=== PATIENT | male | born 1960 | race Caucasian/White ===

== ENCOUNTER 2017-12-28 13:29 | Emergency (ER) | payer BC ==
[2017-12-28 13:50] VITALS: TEMP 97.9
[2017-12-28] MEDS ORDERED: DILTIAZEM 5 MG/ML 5 ML VIAL IV STA (14:10)
[2017-12-28] MEDS ORDERED: SODIUM CHLORIDE 0.9% 500 ML IV STA (14:10)
--- NOTE | 2017-12-28 14:12 | ED ---
General Adult HPI - General Chief complaint: Recheck/Abnormal Lab/Rx Stated complaint: abn EKG Time Seen by Provider: 12/28/17 13:50 Source: patient, RN notes reviewed Mode of arrival: ambulatory Limitations: no limitations - History of Present Illness Initial comments: This is a 57-year-old male presents emergency Department complaining of palpitations. Patient states she has a history of atrial fibrillation. Patient states he felt fine he worked all night at about 8:00 this morning had a sudden onset of palpitations. Patient states that continues currently. Patient denies any chest pain. Patient denies any shortness of breath or difficulty breathing. Patient denies any fever chills or cough. Patient denies abdominal pain patient denies nausea vomiting diarrhea. Patient denies lightheadedness dizziness or near syncopal episode. Patient denies headache patient denies numbness weakness. - Related Data Home Medications Medication Instructions Recorded Confirmed Chlorthalidone 50 mg PO DAILY 12/28/17 12/28/17 Citalopram Hydrobromide [CeleXA] 10 mg PO DAILY 12/28/17 12/28/17 Diazepam [Valium] 5 mg PO HS 12/28/17 12/28/17 Diltiazem HCl [Diltiazem ER] 240 mg PO DAILY 12/28/17 12/28/17 Ergocalciferol [Vitamin D2] 50,000 unit PO Q7D 12/28/17 12/28/17 HYDROcodone/APAP 10-325MG [[place] 1 tab PO BID PRN 12/28/17 12/28/17 10-325] Modafinil [Provigil] 100 mg PO DAILY 12/28/17 12/28/17 Potassium Chloride ER [K-Dur 20] 20 meq PO DAILY 12/28/17 12/28/17 Spironolactone [Aldactone] 25 mg PO DAILY 12/28/17 12/28/17 Valsartan [Diovan] 320 mg PO DAILY 12/28/17 12/28/17 Previous Rx's Medication Instructions Recorded Nitroglycerin Sl Tabs [Nitrostat] 0.4 mg SUBLINGUAL Q5M PRN #0 tab 09/12/15 Allergies Allergy/AdvReac Type Severity Reaction Status Date / Time No Known Allergies Allergy Verified 12/28/17 14:31 Review of Systems ROS Statement: Those systems with pertinent positive or pertinent negative responses have been documented in the HPI. ROS Other: All systems not noted in ROS Statement are negative. Past Medical History Past Medical History: Atrial Fibrillation, Hypertension Additional Past Medical History / Comment(s): kidney stents History of Any Multi-Drug Resistant Organisms: None Reported Past Surgical History: Heart Catheterization, Heart Catheterization With Stent Additional Past Surgical History / Comment(s): Aortic repair Past Anesthesia/Blood Transfusion Reactions: No Reported Reaction Additional Past Anesthesia/Blood Transfusion Reaction / Comment(s): Pt is unsure if he has ever received blood. Past Psychological History: No Psychological Hx Reported Smoking Status: Former smoker Past Alcohol Use History: None Reported Past Drug Use History: None Reported - Past Family History Father Family Medical History: Cancer Additional Family Medical History / Comment(s): Father had pancreatic cancer and at age 45yrs. Mother Family Medical History: Chest Pain / Angina, Diabetes Mellitus Additional Family Medical History / Comment(s): Mother is alive and 78 yrs old. General Exam - General Exam Comments Initial Comments: GENERAL: Patient is well-developed and well-nourished. Patient is nontoxic and well- hydrated and is in mild distress. ENT: Neck is soft and supple. No significant lymphadenopathy is noted. Oropharynx is clear. Moist mucous membranes. Neck has full range of motion without eliciting any pain. EYES: The sclera were anicteric and conjunctiva were pink and moist. Extraocular movements were intact and pupils were equal round and reactive to light. Eyelids were unremarkable. PULMONARY: Unlabored respirations. Good breath sounds bilaterally. No audible rales rhonchi or wheezing was noted. CARDIOVASCULAR: Patient's heart rate is tachycardic and irregular. ABDOMEN: Soft and nontender with normal bowel sounds. No palpable organomegaly was noted. There is no palpable pulsatile mass. SKIN: Skin is clear with no lesions or rashes and otherwise unremarkable. NEUROLOGIC: Patient is alert and oriented x3. Cranial nerves II through XII are grossly intact. Motor and sensory are also intact. Normal speech, volume and content. Symmetrical smile. MUSCULOSKELETAL: Normal extremities with adequate strength and full range of motion. No lower extremity swelling or edema. No calf tenderness. LYMPHATICS: No significant lymphadenopathy is noted PSYCHIATRIC: Normal psychiatric evaluation. Normal interpersonal interactions appears functionally intact in deals appropriately with others. No signs of depression. No signs of anxiety. Limitations: no limitations Course Vital Signs 05/07/18 05/07/18 05/07/18 13:47 14:21 14:40 Temperature 97.9 F Pulse Rate 60 117 H 110 H Respiratory 18 16 16 Rate Blood Pressure 212/111 199/117 197/110 O2 Sat by Pulse 94 L 94 L 98 Oximetry 12/28/17 12/28/17 14:48 15:15 Temperature Pulse Rate 106 H 103 H Respiratory 16 16 Rate Blood Pressure 193/100 165/84 O2 Sat by Pulse 96 95 Oximetry Medical Decision Making - Medical Decision Making EKG shows atrial fibrillation with rapid ventricular response at 135 bpm QRS is under 4 QT interval 336 QTC is 504. Patient has multiple PVCs. Patient's chest x-ray showed widened mediastinum and the recommendation was to get a CTA of his aorta I recommended and ordered that. the patient absolutely refused to have the study. I also mentioned to the patient that he should stay because his heart rate was elevated in A. fib and his troponin was elevated he stated he did not want to stay I told him that this could possibly kill him but he wanted to sign out. I talked to him for about 10 minutes and again he refused to stay and signed out AMA with full understanding of the potential consequences including - Lab Data Result diagrams: 12/28/17 14:14 12/28/17 14:14 Lab Results 12/28/17 12/28/17 12/28/17 Range/Units 14:14 14:14 14:14 WBC 8.2 (3.8-10.6) k/uL RBC 5.63 (4.30-5.90) m/uL Hgb 15.1 (13.0-17.5) gm/dL Hct 46.5 (39.0-53.0) % MCV 82.6 (80.0-100.0) fL MCH 26.8 (25.0-35.0) pg MCHC 32.4 (31.0-37.0) g/dL RDW 13.4 (11.5-15.5) % Plt Count 285 (150-450) k/uL Neutrophils % 75 % Lymphocytes % 14 % Monocytes % 6 % Eosinophils % 2 % Basophils % 0 % Neutrophils # 6.1 (1.3-7.7) k/uL Lymphocytes # 1.2 (1.0-4.8) k/uL Monocytes # 0.5 (0-1.0) k/uL Eosinophils # 0.2 (0-0.7) k/uL Basophils # 0.0 (0-0.2) k/uL PT (9.0-12.0) sec INR (<1.2) APTT (22.0-30.0) sec Sodium 143 (137-145) mmol/L Potassium 3.9 (3.5-5.1) mmol/L Chloride 99 (98-107) mmol/L Carbon Dioxide 28 (22-30) mmol/L Anion Gap 16 mmol/L BUN 24 H (9-20) mg/dL Creatinine 1.30 H (0.66-1.25) mg/dL Est GFR (CKD-EPI)AfAm 70 (>60 ml/min/1.73 sqM) Est GFR (CKD-EPI)NonAf 61 (>60 ml/min/1.73 sqM) Glucose 106 H (74-99) mg/dL Calcium 9.2 (8.4-10.2) mg/dL Magnesium 2.1 (1.6-2.3) mg/dL Total Bilirubin 0.7 (0.2-1.3) mg/dL AST 45 (17-59) U/L ALT 51 (21-72) U/L Alkaline Phosphatase 71 (38-126) U/L Total Creatine Kinase 214 H (55-170) U/L CK-MB (CK-2) 3.2 H* (0.0-2.4) ng/mL CK-MB (CK-2) Rel Index 1.5 Troponin I 0.097 H* (0.000-0.034) ng/mL Total Protein 6.8 (6.3-8.2) g/dL Albumin 3.9 (3.5-5.0) g/dL 12/28/17 Range/Units 14:14 WBC (3.8-10.6) k/uL RBC (4.30-5.90) m/uL Hgb (13.0-17.5) gm/dL Hct (39.0-53.0) % MCV (80.0-100.0) fL MCH (25.0-35.0) pg MCHC (31.0-37.0) g/dL RDW (11.5-15.5) % Plt Count (150-450) k/uL Neutrophils % % Lymphocytes % % Monocytes % % Eosinophils % % Basophils % % Neutrophils # (1.3-7.7) k/uL Lymphocytes # (1.0-4.8) k/uL Monocytes # (0-1.0) k/uL Eosinophils # (0-0.7) k/uL Basophils # (0-0.2) k/uL PT 10.1 (9.0-12.0) sec INR 1.0 (<1.2) APTT 26.4 (22.0-30.0) sec Sodium (137-145) mmol/L Potassium (3.5-5.1) mmol/L Chloride (98-107) mmol/L Carbon Dioxide (22-30) mmol/L Anion Gap mmol/L BUN (9-20) mg/dL Creatinine (0.66-1.25) mg/dL Est GFR (CKD-EPI)AfAm (>60 ml/min/1.73 sqM) Est GFR (CKD-EPI)NonAf (>60 ml/min/1.73 sqM) Glucose (74-99) mg/dL Calcium (8.4-10.2) mg/dL Magnesium (1.6-2.3) mg/dL Total Bilirubin (0.2-1.3) mg/dL AST (17-59) U/L ALT (21-72) U/L Alkaline Phosphatase (38-126) U/L Total Creatine Kinase (55-170) U/L CK-MB (CK-2) (0.0-2.4) ng/mL CK-MB (CK-2) Rel Index Troponin I (0.000-0.034) ng/mL Total Protein (6.3-8.2) g/dL Albumin (3.5-5.0) g/dL Disposition Clinical Impression: Atrial fibrillation with rapid ventricular response, Elevated troponin, Mediastinal widening, History of aortic dissection Disposition: Left Against Medical Advice Referrals: Prema Cui MD [Primary Care Provider] - 1-2 days Time of Disposition: 15:27
[2017-12-28 14:22] VITALS: RESP 16
[2017-12-28] MEDS ORDERED: DILTIAZEM 50 MG in SODIUM CHLORIDE 0.9% 40 ML IV ONE (14:30)
[2017-12-28 14:36] LABS: Basophils % (A) 0 %; Eosinophils # (A) 0.2 k/uL (0-0.7); Eosinophils % (A) 2 %; HCT 46.5 % (39.0-53.0); HGB 15.1 gm/dL (13.0-17.5); Lymphocytes # (A) 1.2 k/uL (1.0-4.8); Lymphocytes % (A) 14 %; MCH 26.8 pg (25.0-35.0); MCHC 32.4 g/dL (31.0-37.0); MCV 82.6 fL (80.0-100.0); Mean Platelet Volume 8.5; Monocytes # (A) 0.5 k/uL (0-1.0); Monocytes % (A) 6 %; Neutrophils # (A) 6.1 k/uL (1.3-7.7); Neutrophils % (A) 75 %; Platelet Count 285 k/uL (150-450); RBC 5.63 m/uL (4.30-5.90); RDW 13.4 % (11.5-15.5); WBC 8.2 k/uL (3.8-10.6)
[2017-12-28 14:46] LABS: Albumin 3.9 g/dL (3.5-5.0); Calcium 9.2 mg/dL (8.4-10.2); Magnesium 2.1 mg/dL (1.6-2.3); Potassium 3.9 mmol/L (3.5-5.1); Total Bilirubin 0.7 mg/dL (0.2-1.3); Total Protein 6.8 g/dL (6.3-8.2)
[2017-12-28 14:49] LABS: Partial Thromboplastin Time 26.4 sec (22.0-30.0); Prothrombin Time 10.1 sec (9.0-12.0)
--- NOTE | 2017-12-28 15:04 | XR ---
EXAMINATION TYPE: XR chest 2V DATE OF EXAM: 12/28/2017 COMPARISON: 02/14/2011 HISTORY: Chest pain, abnormal EKG, shortness of breath and history of aortic dissection TECHNIQUE: Frontal and lateral views of the chest are obtained. FINDINGS: There is abnormal mediastinal widening, slightly exaggerated by patient rotation, however given the history of dissection CTA thorax is recommended. Right hemidiaphragm elevation and right basilar linear atelectasis are seen. Heart is mildly enlarged . Lungs are otherwise clear. Granulomatous changes are seen of the mediastinum. Osseous structures ar e grossly intact. Numerous mediastinal clips are seen with stent graft of the visualized abdominal ao rta. IMPRESSION: 1. Mediastinal widening, partially due to patient rotation, however given the history of dissection C TA thorax is recommended. 2. Right basilar subsegmental atelectasis.
[2017-12-28 15:14] LABS: Creatine Kinase MB 3.2 ng/mL (0.0-2.4); Troponin I 0.097 ng/mL (0.000-0.034)
[2017-12-28] MEDS ORDERED: RX INFO: IV CONTRAST WAS GIVEN 1 EACH MISC MISCELLANE PRN (15:22)
[2017-12-28 15:51] VITALS: BP 208/123; PULSE 115
== END 2017-12-28 15:32 | disposition left against medical advice (07) ==
LOC: EC 13:29
DX: I48.91 Unspecified atrial fibrillation (principal); J98.59 Other diseases of mediastinum, not elsewhere classified; R79.89 Other specified abnormal findings of blood chemistry; Z86.79 Personal history of other diseases of the circulatory system; I10 Essential (primary) hypertension; Z95.5 Presence of coronary angioplasty implant and graft; Z87.891 Personal history of nicotine dependence; Z98.890 Other specified postprocedural states; Z53.29 Procedure and treatment not carried out because of patient's decision for other reasons
CPT/HCPCS: 36415; 71046; 80053; 82550; 82553; 83735; 84484; 85025; 85610; 85730; 93005; 96365; 96376; 99285

== ENCOUNTER 2018-02-22 01:40 | Emergency (ER) | payer BC ==
[2018-02-22] MEDS ORDERED: RX INFO: IV CONTRAST WAS GIVEN 1 EACH MISC MISCELLANE PRN (02:03)
[2018-02-22] MEDS ORDERED: SODIUM CHLORIDE 0.9% 1,000 ML IV STA (02:03)
[2018-02-22] MEDS ORDERED: MORPHINE SULFATE 2 MG/ML SYRINGE IV STA (02:03)
[2018-02-22] MEDS ORDERED: ONDANSETRON 4 MG/2 ML VIAL IVP STA (02:03)
[2018-02-22] MEDS ORDERED: LABETALOL 5 MG/ML VIAL MDV IVP STA ×3 (02:05→06:08)
[2018-02-22] MEDS ORDERED: NITROGLYCERIN OINT 1 INCH/GM PACKET TOPICAL STA (02:08)
[2018-02-22 02:22] LABS: Basophils % (A) 0 %; Eosinophils # (A) 0.2 k/uL (0-0.7); Eosinophils % (A) 3 %; HCT 47.7 % (39.0-53.0); HGB 15.4 gm/dL (13.0-17.5); Lymphocytes % (A) 13 %; MCH 26.3 pg (25.0-35.0); MCHC 32.2 g/dL (31.0-37.0); MCV 81.7 fL (80.0-100.0); Mean Platelet Volume 7.7; Monocytes # (A) 0.6 k/uL (0-1.0); Monocytes % (A) 8 %; Neutrophils # (A) 5.7 k/uL (1.3-7.7); Neutrophils % (A) 75 %; Platelet Count 291 k/uL (150-450); RBC 5.84 m/uL (4.30-5.90); RDW 14.2 % (11.5-15.5); WBC 7.5 k/uL (3.8-10.6)
[2018-02-22 02:35] LABS: INR 1.1 (<1.2); Partial Thromboplastin Time 28.3 sec (22.0-30.0); Prothrombin Time 10.7 sec (9.0-12.0)
[2018-02-22 02:41] LABS: D-Dimer 1.94 mg/L FEU (<0.60)
[2018-02-22 02:48] LABS: Albumin 4.1 g/dL (3.5-5.0); Calcium 9.4 mg/dL (8.4-10.2); Magnesium 1.8 mg/dL (1.6-2.3); Potassium 4.3 mmol/L (3.5-5.1); Total Bilirubin 0.9 mg/dL (0.2-1.3); Total Protein 7.1 g/dL (6.3-8.2)
[2018-02-22 03:05] LABS: Creatine Kinase 76 U/L (55-170)
--- NOTE | 2018-02-22 03:13 | XR ---
EXAMINATION TYPE: XR chest 2V DATE OF EXAM: 02/22/2018 COMPARISON: 12/28/2017 HISTORY: Chest pain TECHNIQUE: Frontal and lateral views of the chest are obtained. FINDINGS: There is opacification of right lower hemithorax consistent with consolidation and moderat e-sized pleural effusion. There is some blunting of left costophrenic angle. There is no gross heart failure. Thoracic aorta is atheromatous. There is old left upper posterior healed rib fracture. IMPRESSION: There is consolidation and pleural fluid on the right side that is increased compared to old exam. Stable changes in the left lower lobe with pleural and pulmonary scarring.
[2018-02-22 03:18] LABS: Creatine Kinase MB 1.8 ng/mL (0.0-2.4); Troponin I <0.012 ng/mL (0.000-0.034)
[2018-02-22] MEDS ORDERED: cefTRIAXone 2,000 MG in SODIUM CHLORIDE 0.9% 100 ML IVPB STA (03:19)
[2018-02-22] MEDS ORDERED: cefTRIAXone IN SWFI 2,000 MG/20 ML SYRINGE IVP ONE (03:30)
[2018-02-22 05:10] VITALS: TEMP 98.2
--- NOTE | 2018-02-22 05:10 | CT ---
EXAM: CT Angiography Chest With Intravenous Contrast CLINICAL HISTORY: chest pain TECHNIQUE: Axial computed tomographic angiography images of the chest with intravenous contrast using pulmonary embolism protocol. CTDI is 18.0 mGy and DLP is 628 mGy-cm. This CT exam was performed using one or more of the following dose reduction techniques: automated exposure control, adjustment of the mA and/or kV according to patient size, and/or use of iterative reconstruction technique. MIP reconstructed images were created and reviewed. Coronal and sagittal reformatted images were created and reviewed. COMPARISON: No relevant prior studies available. Findings: Ascending aortic dissection. The flap appears to arise from the anterior left side of the aorta extends into the aortic arch on the right side with dissection extending into the brachiocephalic artery and appears to extend into the proximal subclavian artery but does not effect the origin of the right vertebral artery. There is some calcification associated with portion of the intimal flap suggesting portion of this may be chronic. There is dense is identified within the descending aortic dissection. No evidence for extravasation Near complete opacification right lung with large pleural effusion and associated atelectasis. There is pleural thickening noted in the right lung with pleural-based densities measuring up to 2 cm in size.. Mediastinal adenopathy with anterior paratracheal lymph nodes measuring up to 3 cm in size Mediastinal adenopathy is evident Impression: Ascending aortic dissection with intimal flap extending into the brachiocephalic artery and the proximal subclavian artery sparing the right common carotid artery and vertebral artery origins. There is some calcium associated with portions of the flap suggesting portion of these may be chronic. Prior studies are not available comparison. Complete opacification the right hemithorax with large pleural effusion and atelectasis. Extensive enlarged mediastinal adenopathy right greater than left Critical Value Communications 02/22/18 05:00 Call Doctor Regarding Aortic Dissection, called Dr. Melissa on 02/22 05:00 (-04:00)
--- NOTE | 2018-02-22 05:24 | ED ---
Chest Pain HPI - General Chief Complaint: Chest Pain Stated Complaint: Chest pain Time Seen by Provider: 02/22/18 01:51 Source: patient Mode of arrival: wheelchair Limitations: no limitations - History of Present Illness Initial Comments: 57 years old gentleman comes in with a chest pain is radiating towards his back pain is short-winded he said shortness of breath has gotten worse over the last 3 hours it started 11 PM tonight he is diaphoretic is nauseous he hasn't thrown up yet deep breaths makes the pain worse he denies any abdominal pain no frequency urgency dysuria no symptoms of TIA or CVA - Related Data Home Medications Medication Instructions Recorded Confirmed Chlorthalidone 50 mg PO DAILY 12/28/17 12/28/17 Citalopram Hydrobromide [CeleXA] 10 mg PO DAILY 12/28/17 12/28/17 Diazepam [Valium] 5 mg PO HS 12/28/17 12/28/17 Diltiazem HCl [Diltiazem ER] 240 mg PO DAILY 12/28/17 12/28/17 Ergocalciferol [Vitamin D2] 50,000 unit PO Q7D 12/28/17 12/28/17 HYDROcodone/APAP 10-325MG [[place] 1 tab PO BID PRN 12/28/17 12/28/17 10-325] Modafinil [Provigil] 100 mg PO DAILY 12/28/17 12/28/17 Potassium Chloride ER [K-Dur 20] 20 meq PO DAILY 12/28/17 12/28/17 Spironolactone [Aldactone] 25 mg PO DAILY 12/28/17 12/28/17 Valsartan [Diovan] 320 mg PO DAILY 12/28/17 12/28/17 Previous Rx's Medication Instructions Recorded Nitroglycerin Sl Tabs [Nitrostat] 0.4 mg SUBLINGUAL Q5M PRN #0 tab 09/12/15 Allergies Allergy/AdvReac Type Severity Reaction Status Date / Time No Known Allergies Allergy Verified 02/22/18 01:46 Review of Systems ROS Statement: Those systems with pertinent positive or pertinent negative responses have been documented in the HPI. ROS Other: All systems not noted in ROS Statement are negative. EKG Findings - EKG Comments: EKG Findings:: EKG is a defibrillation with the bed and with the rapid ventricular response of this EKG reveals no ST elevation noticed ST depression in lead [address] depression in V6 as well Past Medical History Past Medical History: Atrial Fibrillation, Hypertension Additional Past Medical History / Comment(s): kidney stents History of Any Multi-Drug Resistant Organisms: None Reported Past Surgical History: Heart Catheterization, Heart Catheterization With Stent Additional Past Surgical History / Comment(s): Aortic repair Past Anesthesia/Blood Transfusion Reactions: No Reported Reaction Additional Past Anesthesia/Blood Transfusion Reaction / Comment(s): Pt is unsure if he has ever received blood. Past Psychological History: No Psychological Hx Reported Smoking Status: Former smoker Past Alcohol Use History: None Reported Past Drug Use History: None Reported - Past Family History Father Family Medical History: Cancer Additional Family Medical History / Comment(s): Father had pancreatic cancer and at age 45yrs. Mother Family Medical History: Chest Pain / Angina, Diabetes Mellitus Additional Family Medical History / Comment(s): Mother is alive and 78 yrs old. General Exam - General Exam Comments Initial Comments: General: The patient is awake and alert, severe distress his pain is 10 over 10 he is diaphoretic Skin: Skin is warm and dry and no rashes or lesions are noted. Eye: Pupils are equal, round and reactive to light, extra-ocular movements are intact; there is normal conjunctiva bilaterally. Ears, nose, mouth and throat: There are moist mucous membranes and no oral lesions. Neck: The neck is supple, there is no tenderness him a no signs of meningitis Cardiovascular: There is atrial fibrillation with RVR Respiratory: To auscultation bilateral markedly diminished air exchange bilateral Gastrointestinal: Soft, non-distended, non-tender abdomen without masses or organomegaly noted. There is no rebound or guarding present. Bowel sounds are unremarkable. Back: There is no tenderness to palpation in the midline. There is no obvious deformity. Musculoskeletal: Normal ROM, no tenderness, There is no pedal edema. There is no calf tenderness or swelling. No cords were appreciated. Neurological: CN II-XII intact, Cranial nerves III through XII are intact. There are no obvious motor or sensory deficits. Coordination appears grossly intact. Speech is normal. Psychiatric: Cooperative, appropriate mood & affect, normal judgment. Limitations: no limitations Course Vital Signs 02/22/18 02/22/18 02/22/18 01:43 02:06 02:15 Temperature 98.2 F Pulse Rate 60 120 H 114 H Respiratory 26 H 28 H 26 H Rate Blood Pressure 218/124 189/96 185/105 O2 Sat by Pulse 91 L 92 L 93 L Oximetry 02/22/18 02/22/18 02/22/18 02:21 02:35 03:40 Temperature 97.9 F Pulse Rate 113 H 92 87 Respiratory 30 H 26 H 20 Rate Blood Pressure 159/89 156/92 162/96 O2 Sat by Pulse 90 L 90 L 95 Oximetry 02/22/18 02/22/18 04:30 05:08 Temperature 98.2 F Pulse Rate 90 87 Respiratory 22 26 H Rate Blood Pressure 153/87 171/113 O2 Sat by Pulse 92 L 92 L Oximetry Critical Care Time Total Critical Care Time: 60 Critical Care Time: On arrival his blood pressure was 218 and a he was quite diaphoretic with a history of aneurysms and now pain going towards the back we start him on now labetalol 20 mg IV that helped him we also gave him some morphine as well as nitro paste and that normalized his blood pressure to almost 150 systolic then noticed that his d-dimer was elevated with Jeremias Cordero ordered CT angios chest to rule out pulmonary embolism as well as dissection at 5:15 radiology called me and now informed me about the aortic dissection extending into the brachiocephalic artery and subclavian artery and a very large pleural effusion and adenopathy reactive, spoke with the [facility] where Dr. Rodriguez accepted the transfer Disposition Clinical Impression: Chest pain, Aortic dissection, Atrial fibrillation with RVR Disposition: OTHER INSTITUTION NOT DEFINED Condition: Good Referrals: Prema Cui MD [Primary Care Provider] - 1-2 days - Out of Hospital Transfer - Req. Specs Out of Hospital Transfer - Requested Specifics: Other Emergency Center (he will be transferred to [facility] for his aortic dissection it is ascending aorta, extending into the brachiocephalic artery and subclavian artery)
[2018-02-22] MEDS ORDERED: ETOMIDATE 2 MG/ML 10 ML VIAL IVP STA (06:23)
[2018-02-22] MEDS ORDERED: SUCCINYLCHOLINE CHLORIDE VIAL 200 MG/10 ML VIAL IV STA (06:23)
[2018-02-22 06:33] VITALS: BP 159/91; PULSE 91; RESP 22
== END 2018-02-22 06:35 | disposition other institution (70) ==
LOC: EC 01:40
DX: I71.00 Dissection of unspecified site of aorta (principal); I48.91 Unspecified atrial fibrillation; J90 Pleural effusion, not elsewhere classified; I10 Essential (primary) hypertension; Z95.5 Presence of coronary angioplasty implant and graft; Z96.0 Presence of urogenital implants; Z87.891 Personal history of nicotine dependence; Z79.899 Other long term (current) drug therapy
CPT/HCPCS: 36415; 93005; 86900; 86901; 85379; 83880; 80053; 82550; 82553; 83605; 83735; 84484; 85025; 85610; 85730; 86850; 86920; 87040; 71046; 71275; 99291; 31500; 96374; 96375 ×3; 96376 ×2; 96361 ×4; J0330; J2405; J0696; J2270; Q9967

== ENCOUNTER → 2018-04-28 | Outpatient (CLI) | payer BC ==
--- NOTE | 2018-04-28 18:42 | XR ---
EXAMINATION TYPE: XR chest 2V DATE OF EXAM: 04/28/2018 COMPARISON: 02/22/2018 HISTORY: Short of breath TECHNIQUE: Frontal and lateral views of the chest are obtained. FINDINGS: There is blunting of right costophrenic angle. There is opacification of the right lower h emithorax. There are sternal wires. Thoracic aorta is atheromatous. Trachea is midline. There is no h eart failure. There is coarse interstitial density in the left lung. There is slight blunting of left costophrenic angle. IMPRESSION: Right pleural effusion and right lower lobe consolidation. Small left pleural effusion. Pulmonary fibrosis. No heart failure. No change.
== END | disposition home or self-care (01) ==
LOC: RADXRMAIN 17:52
PROVIDERS: ATTEND Internal Medicine Hematology & Oncology
DX: J90 Pleural effusion, not elsewhere classified (principal); J84.10 Pulmonary fibrosis, unspecified; R91.8 Other nonspecific abnormal finding of lung field
CPT/HCPCS: 71046

== ENCOUNTER → 2018-05-08 | Outpatient (CLI) | payer BC ==
--- NOTE | 2018-05-10 21:23 | PE ---
EXAMINATION TYPE: PET CT fusion skull to thigh DATE OF EXAM: 05/08/2018 CLINICAL HISTORY: 57-year-old male initial staging mesothelioma. Diagnosed in February 2018 via lung biop sy. TECHNIQUE: Following the intravenous administration of 13.8 mCi of F-18 FDG, whole body images are performed from the skull base to the midthigh. Images are reviewed on the computer in the coronal, a xial, and sagittal planes. Reconstructed rotating images are created on independent workstation and reviewed on the computer. A localization and attenuation correction CT is performed in conjunction with the PET scan. Glucose level: 100 mg/dL CTDI: 4.98 mGy DLP: 501.93 mGy-cm COMPARISON: CT PE chest 02/22/2018 and prior angiogram aorta 09/10/2015 FINDINGS: PET: Physiologic FDG uptake within the neck. There is median sternotomy with a focal lytic area along the midline sternotomy just below the sterna l notch shows intense uptake, max SUV 8.5. Mediastinal lymphadenopathy with largest right paratracheal node measuring 2.8 cm short axis with int ense uptake, max SUV 7.2. Enlarged 2.1 cm short axis low right axillary lymph node, max SUV 3.9 is suspicious. Some focal soft tissue thickening extending along the right anterolateral lower hemithorax with assoc iated poorly defined soft tissue thickening in the subcutaneous region extending down to the thoracic musculature has mild uptake, max SUV 2.7 possibly relating to the patient's biopsy tract. There is markedly thickened, hypermetabolic pleural rind involving the right hemithorax with thickeni ng measuring up to 2.7 cm along the right heart margin, 4.1 cm along the posteromedial right base, an d up to 6.4 cm at the peripheral right base. These areas show variable moderate to intense FDG uptake , max SUV 7.3. Suspect a small underlying pleural effusion. There is also complete to near complete collapse of the right middle and right lower lobes. Average liver SUV is 2.1. 1.2 cm gastrohepatic ligament lymph node shows borderline moderate uptake at 3.0. Otherwise, physiologic FDG uptake within the abdomen and pelvis. ATTENUATION CORRECTION CT: Visualized paranasal sinuses and mastoid air cells are clear. No thoracic lymphadenopathy identified. Right anterior chest wall injection port with catheter tip at the cavoatrial junction. Heart is mildly enlarged without pericardial effusion. Large caliber to the main right and left pulm onary arteries are 2.9 and 2.7 cm, respectively, suggesting underlying pulmonary arterial hypertensio n. Aneurysmal enlargement of the ascending aorta 4.2 cm and upper descending thoracic aorta 3.7 cm, poss ibly overestimated due to the lack of IV contrast though measurements appear similar from 02/22/2018. P atient's known underlying dissection is not well assessed on this noncontrast study. Endovascular radha nt graft extending from the thoracic abdominal junction with biiliac components is redemonstrated. St able aneurysmal dilatation of the abdominal aorta [place] sac at 3.5 cm. Hydropic gallbladder at 5.3 cm wide. No dilated small bowel, free fluid, or free air. Normal appendix . No mesenteric or retroperitoneal lymphadenopathy. Slightly atrophic right kidney. [id number] amount of pelvic free fluid with circumferential bladder wall thickening. Bones: Degenerative changes mid to lower lumbar spine and also within the cervical spine. IMPRESSION: 1. Lobulated, thickened, and hypermetabolic pleural rind involving the right hemithorax markedly prog ressed from 02/22/2018. Findings compatible with patient's biopsy proven mesothelioma. Suspect underlyi ng small right pleural effusion. There is secondary collapse of the right middle and right lower lobe s. 2. Metastatic mediastinal lymphadenopathy, metastatic right axillary lymph node, possible early seedi ng along the patient's lower right anterolateral biopsy tract, lytic disease involving the upper medi an sternotomy, and suspected early metastatic disease involving an enlarged 1.2 cm gastrohepatic liga ment lymph node. Incidental: 3. Known aortic dissection not well characterized. There is stable aortic aneurysm measuring up to 4. 1 cm and stent graft involving the abdominal aorta. 4. Hydropic gallbladder. Findings may relate to fasting state. If right upper quadrant pain or concer n for early acute cholecystitis, follow-up ultrasound or HIDA scan. 5. Small to moderate pelvic free fluid. Etiology not clear. Circumferential bladder wall thickening c ould relate to cystitis or chronic bladder wall hypertrophy. Clinically correlate.
== END ==
LOC: RADPETMAIN 11:27
PROVIDERS: ATTEND Internal Medicine Hematology & Oncology
DX: C45.0 Mesothelioma of pleura (principal); C77.1 Secondary and unspecified malignant neoplasm of intrathoracic lymph nodes; C77.3 Secondary and unspecified malignant neoplasm of axilla and upper limb lymph nodes; J98.19 Other pulmonary collapse; R93.8 Abnormal findings on diagnostic imaging of other specified body structures
CPT/HCPCS: 78815; A9552

== ENCOUNTER 2018-05-14 08:58 | Day surgery (SDC) | payer BC ==
[2018-05-14 09:38] LABS: Platelet Count 273 k/uL (150-450)
[2018-05-14 09:44] LABS: INR 1.2 (<1.2); Prothrombin Time 11.5 sec (9.0-12.0)
[2018-05-14 09:54] VITALS: BP 151/92; PULSE 93; RESP 18; TEMP 98.2
--- NOTE | 2018-05-14 13:09 | US ---
Discontinued thoracentesis HISTORY: Pleural effusion Ultrasound does not show significant amount of fluid present. Following discussion with the patient, no ultrasound-guided thoracentesis to be performed at this time. IMPRESSION: Aborted thoracentesis
== END 2018-05-14 10:43 | disposition home or self-care (01) ==
LOC: RADPROMAIN 08:58
PROVIDERS: ATTEND Internal Medicine Hematology & Oncology
DX: C45.9 Mesothelioma, unspecified (principal); J91.8 Pleural effusion in other conditions classified elsewhere; Z53.8 Procedure and treatment not carried out for other reasons
CPT/HCPCS: 85049; 85610; 76604; 32555; J1642

== ENCOUNTER → 2018-05-27 | Outpatient (CLI) | payer SELFPAY ==
--- NOTE | 2018-05-27 11:06 | XR ---
EXAMINATION TYPE: XR chest 2V DATE OF EXAM: 05/27/2018 COMPARISON: 04/28/2018 TECHNIQUE: PA and lateral views submitted. HISTORY: Mesothelioma FINDINGS: Bilateral pleural effusion and consolidation greater on the right. Bilateral masses are seen with ana picion of right hilar adenopathy. Heart is enlarged and is diffuse interstitial pattern. Underlying C OPD suspected. Arthropathy of the shoulders. IMPRESSION: 1. Bilateral consolidation and pleural effusion correlate for mild central venous congestion. Finding s are greater on the right. 2. Pulmonary masses compatible with patient's history noted.
== END ==
LOC: RADXRMAIN 10:27
PROVIDERS: ATTEND Internal Medicine Hematology & Oncology
DX: C45.0 Mesothelioma of pleura (principal); J91.0 Malignant pleural effusion; J18.1 Lobar pneumonia, unspecified organism
CPT/HCPCS: 71046

== ENCOUNTER 2018-06-11 19:55 | Inpatient (IN) | payer BC ==
[2018-06-11] MEDS ORDERED: SODIUM CHLORIDE 0.9% 500 ML 500 ML IV STA (21:29)
--- NOTE | 2018-06-11 21:41 | ED ---
General Adult HPI - General Chief complaint: Weakness Stated complaint: WEAKNESS Source: patient, EMS Mode of arrival: EMS Limitations: no limitations - History of Present Illness Initial comments: Dictation was produced using [employer] dictation software. please excuse any grammatical, word or spelling errors. Chief Complaint: 57-year-old male past medical history of stage III mesothelioma presents with generalized weakness 5 days. History of Present Illness: She 7-year-old male with stage IV mesothelioma Zentz with generalized weakness 5 days. Patient is competent medical history include aortic graft for aortic dissection. He had that procedure is not at [facility]. Patient is diagnosed with stage IV mesothelioma. He undergoes chemotherapy regularly. Patient has a history of low hemoglobin. He is accompanied by his ex- who provides the history. Patient was urged by primary care doctor to come to the hospital to be admitted however patient refused. Over the past 5 days he is been getting worse showing signs of difficulty in walking and generalized weakness and pallor of the skin. - Related Data Home Medications Medication Instructions Recorded Confirmed Chlorthalidone 50 mg PO DAILY 12/28/17 06/11/18 Citalopram Hydrobromide [CeleXA] 10 mg PO DAILY 12/28/17 06/11/18 Diazepam [Valium] 5 mg PO HS 12/28/17 06/11/18 Diltiazem HCl [Diltiazem ER] 240 mg PO DAILY 12/28/17 06/11/18 Ergocalciferol [Vitamin D2] 50,000 unit PO Q7D 12/28/17 06/11/18 Potassium Chloride ER [K-Dur 20] 20 meq PO DAILY 12/28/17 06/11/18 Spironolactone [Aldactone] 25 mg PO DAILY 12/28/17 06/11/18 Albuterol Sulfate 1.25 mg IH DAILY 05/06/18 06/11/18 Apixaban [Eliquis] 5 mg PO BID 05/06/18 06/11/18 Aspirin 81 mg PO DAILY 05/06/18 06/11/18 Atorvastatin [Lipitor] 80 mg PO HS 05/06/18 06/11/18 Folic Acid 1 mg PO DAILY 05/06/18 06/11/18 Ipratropium [place] [Atrovent Hfa] 2 puff INHALATION QID 05/06/18 06/11/18 Labetalol [Trandate] 200 mg PO QID 05/06/18 06/11/18 Losartan [Cozaar] 25 mg PO BID 05/06/18 06/11/18 Magnesium Oxide [Mag-Oxide] 400 mg PO BID 05/06/18 06/11/18 Montelukast [Singulair] 10 mg PO DAILY 05/06/18 06/11/18 Omeprazole [PriLOSEC] 20 mg PO AC-BID 05/06/18 06/11/18 cloNIDine HCL [Catapres] 0.3 mg PO TID 05/06/18 06/11/18 Citalopram Hydrobromide [CeleXA] 10 mg PO DAILY 05/14/18 06/11/18 Methocarbamol [Robaxin] 750 mg PO QID 05/14/18 06/11/18 Ondansetron HCl [Zofran] 4 mg PO DAILY 05/14/18 06/11/18 oxyCODONE-APAP 10-325MG [Percocet 1 tab PO QID 05/14/18 06/11/18 10-325 mg] Albuterol Inhaler [Ventolin Hfa 1 - 2 puff INHALATION RT-Q6H PRN 06/11/18 Inhaler] Dexamethasone 4 mg PO BID 06/11/18 06/11/18 Diltiazem HCl [Cartia Xt] 240 mg PO DAILY 06/11/18 06/11/18 Dronabinol 5 mg PO BID 06/11/18 06/11/18 Previous Rx's Medication Instructions Recorded Nitroglycerin Sl Tabs [Nitrostat] 0.4 mg SUBLINGUAL Q5M PRN #0 tab 09/12/15 Allergies Allergy/AdvReac Type Severity Reaction Status Date / Time valsartan [From Diovan] Allergy Anaphylaxis Verified 06/11/18 20:46 Review of Systems ROS Statement: Those systems with pertinent positive or pertinent negative responses have been documented in the HPI. ROS Other: All systems not noted in ROS Statement are negative. Past Medical History Past Medical History: Atrial Fibrillation, Cancer, CVA/TIA, GERD/Reflux, Hyperlipidemia, Hypertension, Respiratory Disorder Additional Past Medical History / Comment(s): kidney stents, mesothelioma, triple A History of Any Multi-Drug Resistant Organisms: None Reported Past Surgical History: Heart Catheterization, Heart Catheterization With Stent Additional Past Surgical History / Comment(s): Aortic repair february 2018, port Past Anesthesia/Blood Transfusion Reactions: No Reported Reaction Additional Past Anesthesia/Blood Transfusion Reaction / Comment(s): Pt is unsure if he has ever received blood. Date of Last Stent Placement:: aortic stent Past Psychological History: No Psychological Hx Reported Smoking Status: Former smoker Past Alcohol Use History: None Reported Past Drug Use History: None Reported - Past Family History Father Family Medical History: Cancer Additional Family Medical History / Comment(s): Father had pancreatic cancer and at age 45yrs. Mother Family Medical History: Chest Pain / Angina, Diabetes Mellitus Additional Family Medical History / Comment(s): Mother is alive and 78 yrs old. General Exam - General Exam Comments Initial Comments: PHYSICAL EXAM: General Impression: Alert and oriented x3, not in acute distress HEENT: Normocephalic atraumatic, extra-ocular movements intact, pupils equal and reactive to light bilaterally, dry because members, pale Cardiovascular: Heart regular rate and rhythm, S1&S2 audible, no murmurs, rubs or gallops Chest: Lungs clear to auscultation bilaterally, no rhonchi, no wheeze, no rales Abdomen: Bowel sounds present, abdomen soft, non-tender, non-distended, no organomegaly Musculoskeletal: Pulses present and equal in all extremities, no peripheral edema Motor: Power 4/5 bilaterally, no focal deficits noted Neurological: CN II-XII grossly intact, no focal motor or sensory deficits noted Skin: Intact with no visualized rashes Psych: Normal affect and mood Limitations: no limitations Course Vital Signs 06/11/18 06/11/18 06/11/18 19:57 22:08 23:32 Temperature 98.0 F 97.9 F Pulse Rate 88 89 82 Respiratory 20 26 H 24 Rate Blood Pressure 151/100 161/106 153/84 O2 Sat by Pulse 95 93 L 95 Oximetry Medical Decision Making - Medical Decision Making ED course:-year-old male with multiple comorbidities including mesothelioma stage IV, chemotherapy and aortic graft repair presents with generalized weakness. Patient is hemodynamically stable at this time.Laboratory evaluation obtained. Patient leukopenia with a WBC 1.2. Hemoglobin 8.1. Patient platelet is 93. Patient had a 3 g drop since last lab performed proximal one month ago. Coag panel is unremarkable. Metabolic panel shows potassium of 6.0. Patient has mild Acidosis however no LOC ischemia. Patient has elevated BUN/creatinine ratio. Magnesium 2.6. Cardiac enzymes are negative. Urinalysis shows 22 red blood cells. Patient is unable course. Patient is a chemotherapy which likely suggests all of his CBC cell markers are diminished. Patient given intravenous fluids. Patient's electrolytes originally was secondary to cancer therapy. She is severely weak. Patient given hyperkalemia cocktail. Patient be admitted to the hospital for inpatient treatment of electronic derangement. Imaging studies were obtained. Chest x-ray shows congestive heart failure with right lower lobe infiltrate. CT abdomen shows no acute processes. There is concern of possible infiltrate in the lungs. Blood cultures obtained. Patient given broad-spectrum antibiotics. Brain CT shows no acute processes. EKG interpretation: Ventricular rate 86 atrial fibrillation, QRS 108, QTC 428.. No AL prolongation, no QTC prolongation, no ST or T-wave changes noted. Peak T waves concerning for hyperkalemia. - Lab Data Result diagrams: 06/11/18 20:28 06/11/18 20:28 Lab Results 06/11/18 06/11/18 06/11/18 Range/Units 20:28 20:28 20:28 WBC 1.2 L* (3.8-10.6) k/uL RBC 3.04 L (4.30-5.90) m/uL Hgb 8.1 L D (13.0-17.5) gm/dL Hct 24.9 L (39.0-53.0) % MCV 81.9 (80.0-100.0) fL MCH 26.7 (25.0-35.0) pg MCHC 32.6 (31.0-37.0) g/dL RDW 18.1 H (11.5-15.5) % Plt Count 93 L D (150-450) k/uL Neutrophils % 83 % Lymphocytes % 13 % Monocytes % 2 % Eosinophils % 0 % Basophils % 0 % Neutrophils # 1.0 L (1.3-7.7) k/uL Lymphocytes # 0.2 L (1.0-4.8) k/uL Monocytes # 0.0 (0-1.0) k/uL Eosinophils # 0.0 (0-0.7) k/uL Basophils # 0.0 (0-0.2) k/uL Manual Slide Review Performed Hypochromasia Moderate Poikilocytosis (manual Present Anisocytosis Slight Ovalocytes Present PT (9.0-12.0) sec INR (<1.2) APTT (22.0-30.0) sec Sodium 138 (137-145) mmol/L Potassium 6.0 H (3.5-5.1) mmol/L Chloride 97 L (98-107) mmol/L Carbon Dioxide 28 (22-30) mmol/L Anion Gap 13 mmol/L BUN 67 H (9-20) mg/dL Creatinine 1.14 (0.66-1.25) mg/dL Est GFR (CKD-EPI)AfAm 83 (>60 ml/min/1.73 sqM) Est GFR (CKD-EPI)NonAf 71 (>60 ml/min/1.73 sqM) Glucose 116 H (74-99) mg/dL Plasma Lactic Acid Elie (0.7-2.0) mmol/L Calcium 9.2 (8.4-10.2) mg/dL Magnesium 2.6 H (1.6-2.3) mg/dL Total Bilirubin 0.5 (0.2-1.3) mg/dL AST 26 (17-59) U/L ALT 21 (21-72) U/L Alkaline Phosphatase 114 (38-126) U/L Total Creatine Kinase 21 L (55-170) U/L CK-MB (CK-2) 0.3 (0.0-2.4) ng/mL CK-MB (CK-2) Rel Index 1.4 Troponin I <0.012 (0.000-0.034) ng/mL Total Protein 7.1 (6.3-8.2) g/dL Albumin 3.5 (3.5-5.0) g/dL TSH 0.826 (0.465-4.680) mIU/L Urine Color Urine Appearance (Clear) Urine pH (5.0-8.0) Ur Specific Dale (1.001-1.035) Urine Protein (Negative) Urine Glucose (UA) (Negative) Urine Ketones (Negative) Urine Blood (Negative) Urine Nitrite (Negative) Urine Bilirubin (Negative) Urine Urobilinogen (<2.0) mg/dL Ur Leukocyte Esterase (Negative) Urine RBC (0-5) /hpf Urine WBC (0-5) /hpf 06/11/18 06/11/18 06/11/18 Range/Units 20:28 20:28 22:39 WBC (3.8-10.6) k/uL RBC (4.30-5.90) m/uL Hgb (13.0-17.5) gm/dL Hct (39.0-53.0) % MCV (80.0-100.0) fL MCH (25.0-35.0) pg MCHC (31.0-37.0) g/dL RDW (11.5-15.5) % Plt Count (150-450) k/uL Neutrophils % % Lymphocytes % % Monocytes % % Eosinophils % % Basophils % % Neutrophils # (1.3-7.7) k/uL Lymphocytes # (1.0-4.8) k/uL Monocytes # (0-1.0) k/uL Eosinophils # (0-0.7) k/uL Basophils # (0-0.2) k/uL Manual Slide Review Hypochromasia Poikilocytosis (manual Anisocytosis Ovalocytes PT 12.0 (9.0-12.0) sec INR 1.3 H (<1.2) APTT 27.1 (22.0-30.0) sec Sodium (137-145) mmol/L Potassium (3.5-5.1) mmol/L Chloride (98-107) mmol/L Carbon Dioxide (22-30) mmol/L Anion Gap mmol/L BUN (9-20) mg/dL Creatinine (0.66-1.25) mg/dL Est GFR (CKD-EPI)AfAm (>60 ml/min/1.73 sqM) Est GFR (CKD-EPI)NonAf (>60 ml/min/1.73 sqM) Glucose (74-99) mg/dL Plasma Lactic Acid Elie 1.5 (0.7-2.0) mmol/L Calcium (8.4-10.2) mg/dL Magnesium (1.6-2.3) mg/dL Total Bilirubin (0.2-1.3) mg/dL AST (17-59) U/L ALT (21-72) U/L Alkaline Phosphatase (38-126) U/L Total Creatine Kinase (55-170) U/L CK-MB (CK-2) (0.0-2.4) ng/mL CK-MB (CK-2) Rel Index Troponin I (0.000-0.034) ng/mL Total Protein (6.3-8.2) g/dL Albumin (3.5-5.0) g/dL TSH (0.465-4.680) mIU/L Urine Color Light Yellow Urine Appearance Clear (Clear) Urine pH 6.5 (5.0-8.0) Ur Specific Dale 1.011 (1.001-1.035) Urine Protein Trace H (Negative) Urine Glucose (UA) Negative (Negative) Urine Ketones Negative (Negative) Urine Blood Moderate H (Negative) Urine Nitrite Negative (Negative) Urine Bilirubin Negative (Negative) Urine Urobilinogen <2.0 (<2.0) mg/dL Ur Leukocyte Esterase Negative (Negative) Urine RBC 22 H (0-5) /hpf Urine WBC 4 (0-5) /hpf Disposition Clinical Impression: Hyperkalemia Disposition: ADMITTED IP TO THIS [facility] Condition: Fair Referrals: Prema Cui MD [Primary Care Provider] - 1-2 days Decision Time: 00:03
--- NOTE | 2018-06-11 21:50 | XR ---
EXAMINATION TYPE: XR chest 2V DATE OF EXAM: 06/11/2018 COMPARISON: 05/27/2018 HISTORY: Weakness short of breath TECHNIQUE: Frontal and lateral views of the chest are obtained. FINDINGS: The heart is enlarged. There is pulmonary vascular congestion. There is moderate delay lar ge right pleural effusion. There is right central venous catheter with the tip in the superior vena c rickey. There are chest leads. IMPRESSION: Congestive heart failure with large right pleural effusion. Right lower lobe pneumonia i s possible. No significant change.
[2018-06-11 21:56] LABS: INR 1.3 (<1.2); Partial Thromboplastin Time 27.1 sec (22.0-30.0)
[2018-06-11 21:58] LABS: Albumin 3.5 g/dL (3.5-5.0); Calcium 9.2 mg/dL (8.4-10.2); Magnesium 2.6 mg/dL (1.6-2.3); Total Bilirubin 0.5 mg/dL (0.2-1.3); Total Protein 7.1 g/dL (6.3-8.2)
[2018-06-11 22:05] LABS: Creatine Kinase 21 U/L (55-170)
[2018-06-11 22:16] LABS: Anisocytosis Slight; Basophils % (A) 0 %; Eosinophils % (A) 0 %; HCT 24.9 % (39.0-53.0); Hypochromasia Moderate; Lymphocytes # (A) 0.2 k/uL (1.0-4.8); Lymphocytes % (A) 13 %; MCH 26.7 pg (25.0-35.0); MCHC 32.6 g/dL (31.0-37.0); MCV 81.9 fL (80.0-100.0); Mean Platelet Volume 6.9; Monocytes % (A) 2 %; Neutrophils % (A) 83 %; RBC 3.04 m/uL (4.30-5.90); RDW 18.1 % (11.5-15.5)
[2018-06-11 22:18] LABS: Creatine Kinase MB 0.3 ng/mL (0.0-2.4); Troponin I <0.012 ng/mL (0.000-0.034)
[2018-06-11 22:20] LABS: HGB 8.1 gm/dL (13.0-17.5); WBC 1.2 k/uL (3.8-10.6)
--- NOTE | 2018-06-11 22:20 | CT ---
EXAMINATION TYPE: CT brain wo con DATE OF EXAM: 06/11/2018 COMPARISON: None HISTORY: weakness CT DLP: 1306.4 mGycm Automated exposure control for dose reduction was used. FINDINGS: There is mild cerebral cortical atrophy. There is no mass effect nor midline shift. There is no sign of intracranial hemorrhage. There is 2 cm area of cortical hypodensity right posterior frontal lobe c onsistent with old infarct. There is a 1 cm area of hypodensity right anterior internal capsule and c entrum semiovale consistent with old infarct. There is 1 cm hypodensity right posterior centrum semio gabriele consistent with old lacunar infarct. The calvarium is intact. There is 5 mm area of hypodensity white matter left centrum semiovale consistent with old lacunar infarct. IMPRESSION: MULTIPLE LACUNAR INFARCTS MAINLY ON THE RIGHT SIDE ABOVE. THESE APPEAR OLD. SMALL RIGHT POSTERIOR FRONTAL CORTICAL INFARCT APPEARS OLD. NO HEMORRHAGE. NO ACUTE INTRACRANIAL ABNORMALITY.
[2018-06-11 22:30] LABS: Ovalocytes Present; Platelet Count 93 k/uL (150-450); Poikilocytosis (M) Present
[2018-06-11] MEDS ORDERED: CALCIUM GLUCONATE 1,000 MG in SODIUM CHLORIDE 0.9% 100 ML IVPB ONE (22:30)
[2018-06-11] MEDS ORDERED: FUROSEMIDE 10 MG/ML 4 ML VIAL IV STA (22:31)
[2018-06-11] MEDS ORDERED: SODIUM CHLORIDE 0.9% 1,000 ML IV STA (22:31)
[2018-06-11 23:09] LABS: Appearance,Urine Clear (Clear); Bilirubin,Urine Negative (Negative); Blood,Urine Moderate (Negative); Color,Urine Light Yellow; Glucose,Urine (UA) Negative (Negative); Ketones,Urine Negative (Negative); Leukocyte Esterase,Urine Negative (Negative); Nitrite,Urine Negative (Negative); PH, Urine 6.5 (5.0-8.0); Protein,Urine Trace (Negative); RBC,Urine 22 /hpf (0-5); Specific Gravity,Urine 1.011 (1.001-1.035); Urobilinogen,Urine <2.0 mg/dL (<2.0); WBC,Urine 4 /hpf (0-5)
--- NOTE | 2018-06-11 23:47 | CT ---
EXAMINATION TYPE: CT abdomen pelvis w con DATE OF EXAM: 06/11/2018 COMPARISON: PET/CT scan 05/08/2018 HISTORY: right flank pain and bruising mesothelioma CT DLP: 1658.6 mGycm Automated exposure control for dose reduction was used. TECHNIQUE: Helical acquisition of images was performed from the lung bases through the pelvis. CONTRAST: Performed without Oral Contrast and with IV Contrast, patient injected with 100mL mL of Isovue 300. FINDINGS: There is large right pleural effusion. There is extensive infiltrate in the right lung. Heart is enla rged. There is patchy airspace infiltrate and consolidation in the left lower lobe. Liver shows no focal defect. Spleen appears normal. There is no pancreatic mass. There is small amoun t of fluid around the gallbladder. There is aorto iliac stent noted. 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 Bile ducts a re not dilated. There is no adrenal mass. There is mild ascites. There is right renal cortical thinning. Left kidney has normal size and contour. There is no hydronephrosis. The delayed images show very little contrast in the renal collecting systems that suggest some degree of renal failure. There is no retroperitoneal adenopathy. There is free fluid in the pelvis. Bladder distends smoothly. There is no inguinal hernia. I see no evidence of a bowel obstruction. Appendix appears normal. Ther e is no lumbar compression fracture. I see no bony destructive process. There is no evidence of a bow el obstruction. There is no sign of free air. There is increased subcutaneous density over the lateral right abdomen consistent with edema and poss ible hematoma. This is present to a lesser extent on the old exam and appears increased compared to o ld CT scan. There are enlarged subcutaneous lymph nodes along the right lateral upper chest wall. IMPRESSION: AORTOILIAC STENT APPEARS PATENT. ASCITES. EXTENSIVE PLEURAL AND PULMONARY ABNORMALITIES AT BOTH LUNG BASES. Left lower lobe infiltrates increased compared to old exam. Aortoiliac stent unchanged. There is increased abdominal ascites fluid compared to old CT scan. No bowel obstruction. Right renal atrop hy unchanged. Increased subcutaneous edema and soft tissue swelling along the right lateral abdomen c ompared to old exam.
[2018-06-11] MEDS ORDERED: NALOXONE 0.4 MG/ML 1 ML VIAL IV PRN (23:52)
[2018-06-12] MEDS ORDERED: CEFEPIME 2 GM in SODIUM CHLORIDE 0.9% 50 ML IVPB STA ×2
[2018-06-12] MEDS ORDERED: VANCOMYCIN 2,000 MG in SODIUM CHLORIDE 0.9% 500 ML 500 ML IVPB STA ×2
[2018-06-12] MEDS: oxyCODONE-APAP 10-325MG 1 EACH TAB PO PRN ×5 (00:32→23:30)
[2018-06-12] MEDS: cloNIDine HCL 0.1 MG TAB PO SCH ×3 (09:04→23:30)
[2018-06-12] MEDS: LABETALOL 200 MG TAB PO SCH ×3 (09:04→18:04)
[2018-06-12] MEDS: SPIRONOLACTONE 25 MG TAB PO SCH (09:04)
[2018-06-12] MEDS: DEXAMETHASONE 4 MG TAB PO SCH (09:04)
[2018-06-12] MEDS: APIXABAN 5 MG TAB PO SCH ×2 (09:04→23:31)
[2018-06-12] MEDS: DILTIAZEM CD 240 MG CAP.ER.24H PO SCH (09:04)
[2018-06-12] MEDS: LOSARTAN 25 MG TAB PO SCH ×2 (09:04→23:31)
--- NOTE | 2018-06-12 10:48 | P.HPIM ---
History of Present Illness H&P Date: 06/12/18 Chief Complaint: Severe weakness David underwood is a 57-year-old male who presented to [facility] emergency room with a chief complaint of severe weakness patient was unable to stand and walk at home, his weakness has been worsening over the last several days, he has known history of mesothelioma and had received chemotherapy recently. Patient presented to emergency room, he was evaluated by Dr. Ingram he had evidence of right lower lobe infiltrate and right pleural effusion, he also had evidence of congestive heart failure on chest x-ray, his potassium was elevated at 6.0 his white blood count was low at 1.2 and his hemoglobin was 8.1 he was started on IV antibiotics cefepime and vancomycin and was admitted to medical floor for further evaluation. Patient was seen and examined by myself on 06/12/2018, he was alert and oriented plain comfortably in bed denies any pain however he is complaining of severe generalized weakness, he stated that he had some cough with yellow-green sputum production over the last few days, he has some shortness of breath with activity, but mostly he had generalized weakness and inability to stand or walk. Chest x-ray reviewed and revealed evidence of right lower lobe infiltrate and right pleural effusion, patient states that he follows with Dr. Domingo diamond finishing supervisor as outpatient. Consultation for pulmonary and for oncology was initiated. Patient has a known history of coronary artery disease he had previous history of cardiac catheterization with stent placement, he also has known history of hypertension, history of atrial fibrillation, history of aortic dissection with previous aortic repair with aortic stent placement in February 2018/ Past Medical History Past Medical History: Atrial Fibrillation, Cancer, CVA/TIA, GERD/Reflux, Hyperlipidemia, Hypertension, Respiratory Disorder Additional Past Medical History / Comment(s): kidney stents, mesothelioma, triple A History of Any Multi-Drug Resistant Organisms: None Reported Past Surgical History: Heart Catheterization, Heart Catheterization With Stent Additional Past Surgical History / Comment(s): Aortic repair february 2018, Past Anesthesia/Blood Transfusion Reactions: No Reported Reaction Additional Past Anesthesia/Blood Transfusion Reaction / Comment(s): Pt is unsure if he has ever received blood. Date of Last Stent Placement:: aortic stent Past Psychological History: No Psychological Hx Reported Additional Psychological History / Comment(s): resides with mother, uses walker and cane and is oxygen dependant. Smoking Status: Former smoker Past Alcohol Use History: None Reported Additional Past Alcohol Use History / Comment(s): Pt quit smoking in 2007 and had been a half pack a day smoker for 30 yrs. Past Drug Use History: None Reported - Past Family History Father Family Medical History: Cancer Additional Family Medical History / Comment(s): Father had pancreatic cancer and at age 45yrs. Mother Family Medical History: Chest Pain / Angina, Diabetes Mellitus Additional Family Medical History / Comment(s): Mother is alive and 78 yrs old. Medications and Allergies Home Medications Medication Instructions Recorded Confirmed Type Nitroglycerin Sl Tabs [Nitrostat] 0.4 mg SUBLINGUAL Q5M PRN #0 tab 09/12/15 Rx Chlorthalidone 50 mg PO DAILY 12/28/17 06/11/18 History Citalopram Hydrobromide [CeleXA] 10 mg PO DAILY 12/28/17 06/11/18 History Diazepam [Valium] 5 mg PO HS 12/28/17 06/11/18 History Diltiazem HCl [Diltiazem ER] 240 mg PO DAILY 12/28/17 06/11/18 History Ergocalciferol [Vitamin D2] 50,000 unit PO Q7D 12/28/17 06/11/18 History Potassium Chloride ER [K-Dur 20] 20 meq PO DAILY 12/28/17 06/11/18 History Spironolactone [Aldactone] 25 mg PO DAILY 12/28/17 06/11/18 History Albuterol Sulfate 1.25 mg IH DAILY 05/06/18 06/11/18 History Apixaban [Eliquis] 5 mg PO BID 05/06/18 06/11/18 History Aspirin 81 mg PO DAILY 05/06/18 06/11/18 History Atorvastatin [Lipitor] 80 mg PO HS 05/06/18 06/11/18 History Folic Acid 1 mg PO DAILY 05/06/18 06/11/18 History Ipratropium Evant [Atrovent Hfa] 2 puff INHALATION QID 05/06/18 06/11/18 History Labetalol [Trandate] 200 mg PO QID 05/06/18 06/11/18 History Losartan [Cozaar] 25 mg PO BID 05/06/18 06/11/18 History Magnesium Oxide [Mag-Oxide] 400 mg PO BID 05/06/18 06/11/18 History Montelukast [Singulair] 10 mg PO DAILY 05/06/18 06/11/18 History Omeprazole [PriLOSEC] 20 mg PO AC-BID 05/06/18 06/11/18 History cloNIDine HCL [Catapres] 0.3 mg PO TID 05/06/18 06/11/18 History Citalopram Hydrobromide [CeleXA] 10 mg PO DAILY 05/14/18 06/11/18 History Methocarbamol [Robaxin] 750 mg PO QID 05/14/18 06/11/18 History Ondansetron HCl [Zofran] 4 mg PO DAILY 05/14/18 06/11/18 History oxyCODONE-APAP 10-325MG [Percocet 1 tab PO QID 05/14/18 06/11/18 History 10-325 mg] Albuterol Inhaler [Ventolin Hfa 1 - 2 puff INHALATION RT-Q6H PRN 06/11/18 History Inhaler] Dexamethasone 4 mg PO BID 06/11/18 06/11/18 History Diltiazem HCl [Cartia Xt] 240 mg PO DAILY 06/11/18 06/11/18 History Dronabinol 5 mg PO BID 06/11/18 06/11/18 History Allergies Allergy/AdvReac Type Severity Reaction Status Date / Time valsartan [From [facility]] Allergy Anaphylaxis Verified 06/11/18 20:46 Physical Exam Vitals: Vital Signs Temp Pulse Pulse Resp BP BP Pulse Ox 06/12/18 07:10 98.1 F 96 16 176/88 96 06/12/18 02:41 22 06/12/18 00:31 97.8 F 93 26 H 155/79 94 L 06/11/18 23:32 82 24 153/84 95 06/11/18 23:30 84 24 152/100 96 06/11/18 22:08 97.9 F 89 26 H 161/106 93 L 06/11/18 19:57 98.0 F 88 20 151/100 95 Intake and Output 06/11/18 06/12/18 06/12/18 22:59 06:59 14:59 Intake Total 1000 Output Total 3000 Balance -2000 Intake: Intake, IV Titration 1000 Amount Calcium Gluconate 1,000 500 mg In Sodium Chloride 0.9 % 100 ml @ 100 mls/hr IVPB ONCE ONE Rx#: [id number] Vancomycin 2,000 mg In 500 Sodium Chloride 0.9% 500 ml 500 ml @ 250 mls/hr IVPB ONCE STA Rx#: [id number] Output: Urine 3000 Uretheral (Rubin) 3000 Other: Voiding Method Indwelling Catheter Weight 112.945 kg In general patient is alert and oriented answering questions appropriately HEENT head normocephalic and atraumatic Neck is supple no JVD no goiter no lymphadenopathy no carotid bruit Chest exam reveals a few scattered crackles bilaterally no wheezing Cardiac exam reveals regular heart sounds S1 and S2 no gallops no murmurs Abdomen is soft nontender no organomegaly with normal bowel sounds no palpable masses Extremity exam reveals 2+ edema no cyanosis or clubbing Neurological exam reveals generalized weakness without any focal deficit Results CBC & Chem 7: 06/11/18 20:28 06/11/18 20:28 Labs: Abnormal Lab Results - Last 24 Hours (Table) 06/11/18 06/11/18 06/11/18 Range/Units 20:28 20:28 20:28 WBC 1.2 L* (3.8-10.6) k/uL RBC 3.04 L (4.30-5.90) m/uL Hgb 8.1 L D (13.0-17.5) gm/dL Hct 24.9 L (39.0-53.0) % RDW 18.1 H (11.5-15.5) % Plt Count 93 L D (150-450) k/uL Neutrophils # 1.0 L (1.3-7.7) k/uL Lymphocytes # 0.2 L (1.0-4.8) k/uL INR (<1.2) Potassium 6.0 H (3.5-5.1) mmol/L Chloride 97 L (98-107) mmol/L BUN 67 H (9-20) mg/dL Glucose 116 H (74-99) mg/dL Magnesium 2.6 H (1.6-2.3) mg/dL Total Creatine Kinase 21 L (55-170) U/L Urine Protein (Negative) Urine Blood (Negative) Urine RBC (0-5) /hpf 06/11/18 06/11/18 Range/Units 20:28 22:39 WBC (3.8-10.6) k/uL RBC (4.30-5.90) m/uL Hgb (13.0-17.5) gm/dL Hct (39.0-53.0) % RDW (11.5-15.5) % Plt Count (150-450) k/uL Neutrophils # (1.3-7.7) k/uL Lymphocytes # (1.0-4.8) k/uL INR 1.3 H (<1.2) Potassium (3.5-5.1) mmol/L Chloride (98-107) mmol/L BUN (9-20) mg/dL Glucose (74-99) mg/dL Magnesium (1.6-2.3) mg/dL Total Creatine Kinase (55-170) U/L Urine Protein Trace H (Negative) Urine Blood Moderate H (Negative) Urine RBC 22 H (0-5) /hpf Thrombosis Risk Factor Assmnt - Choose All That Apply Each Factor Represents 1 point: Age 41-60 years Other Risk Factors: No Other congenital or acquired thrombophilia - If yes, enter type in comment: No Thrombosis Risk Factor Assessment Total Risk Factor Score: 1 Thrombosis Risk Factor Assessment Level: Low Risk Assessment and Plan Plan: #1 generalized weakness multifactorial related to hyperkalemia, pneumonia, mesothelioma with chemotherapy #2 hyperkalemia patient was treated in emergency room for potassium of 6 we are reordering stat labs at this time to assess potassium level and need for further treatment #3 mesothelioma, patient was receiving chemotherapy, will consult Dr. Montalvo for follow-up #4 leukopenia white blood count on presentation 1.2 will recheck #5 right lower lobe pneumonia patient was started on vancomycin and cefepime in the emergency room will continue with current medications at this time will obtain sputum culture and blood culture and adjust antibiotics accordingly #6 right pleural effusion pulmonary consultation was requested patient is well known to Dr. Domingo #7 generalized weakness at this time awaiting improvement in multiple medical problems, subsequently Will consult physical therapy and occupational therapy, patient may need admission to subacute rehab #8 underlying history of atrial fibrillation, at this time patient is on Eliquis for anticoagulation will monitor closely. #9 underlying history of hypertension maintained on Cardizem and clonidine and losartan will monitor blood pressure control and adjust medications accordingly #10 chronic pain syndrome patient has chronic back pain and is maintained on Percocet every 6 hours will continue at this time Medication and labs were reviewed, Reorder labs stat this morning Consult pulmonary and oncology Prognosis is guarded CODE STATUS is no code per patient request
[2018-06-12 12:33] LABS: Anisocytosis Slight; Basophils % (A) 0 %; Eosinophils % (A) 1 %; HCT 26.6 % (39.0-53.0); HGB 8.4 gm/dL (13.0-17.5); Hypochromasia Slight; Lymphocytes # (A) 0.1 k/uL (1.0-4.8); Lymphocytes % (A) 12 %; MCH 25.7 pg (25.0-35.0); MCHC 31.5 g/dL (31.0-37.0); MCV 81.7 fL (80.0-100.0); Mean Platelet Volume 7.9; Monocytes % (A) 4 %; Neutrophils # (A) 0.9 k/uL (1.3-7.7); Neutrophils % (A) 83 %; RBC 3.26 m/uL (4.30-5.90); RDW 17.8 % (11.5-15.5)
[2018-06-12 12:41] LABS: Albumin 3.3 g/dL (3.5-5.0); Calcium 9.2 mg/dL (8.4-10.2); Potassium 5.5 mmol/L (3.5-5.1); Total Bilirubin 0.4 mg/dL (0.2-1.3); Total Protein 6.7 g/dL (6.3-8.2)
[2018-06-12 12:53] LABS: Platelet Count 82 k/uL (150-450); WBC 1.1 k/uL (3.8-10.6)
[2018-06-12] MEDS: VANCOMYCIN 1,750 MG in SODIUM CHLORIDE 0.9% 500 ML 500 ML IVPB SCH (14:59)
--- NOTE | 2018-06-12 17:50 | P.CONS ---
History of Present Illness - Reason for Consult Consult date: 06/12/18 Mesothelioma, on chemotherapy Requesting physician: Prema uCi - Chief Complaint Increasing weakness - History of Present Illness Mr. Powell is a very pleasant 57-year-old male with a history of mesothelioma on chemotherapy with single agent Alimta who is here for increasing weakness, found to have a right lower lobe pneumonia. His story begins in 02/22/18 when he presented to [facility] with chest pain and was found to have a dissecting aortic aneurysm. He was airlifted to [facility] and underwent surgical repair. He subsequently had a large pleural effusion and cytology was positive for carcinoma, suspected mesothelioma. He then underwent a CT of the chest that revealed large right hilar lymphadenopathy. Diagnostic bronchoscopy with nevus in needle biopsy was performed on 03/15/18, pathology positive for metastatic mesothelioma. His hospital stay was complicated by a left-sided CVA. He was discharged to subacute rehab and then eventually home and was seen by Dr. Schumacher in clinic. Diagnosis and treatment were discussed with them and he underwent Mediport placement and PET scan which only revealed mediastinal lymphadenopathy. He was started on chemotherapy with Alimta, first cycle administered on 05/13/18. He was seen in clinic on 05/27/18 and at that time had been tolerating chemotherapy. He received cycle 2 of Alimta on 06/02/18. He is scheduled to receive Feraheme on 06/15/18, and cycle 3 on 06/23/18 however he ended up in the hospital with increasing weakness. Workup in the ER revealed pancytopenia, with WBC 1.1, hemoglobin 8.4, platelet 82, ANC 0.9. Last CBC from 04/28/18 was normal except for mild anemia, with hemoglobin 11.5 at that time. Chest x-ray revealed a right lower lobe opacity, pleural effusion. He was admitted and started on antibiotics and we were called regarding his history of mesothelioma. He is very sleepy on exam. Arousable. Review of Systems All systems: negative Constitutional: Reports as per HPI Past Medical History Past Medical History: Atrial Fibrillation, Cancer, CVA/TIA, GERD/Reflux, Hyperlipidemia, Hypertension, Respiratory Disorder Additional Past Medical History / Comment(s): kidney stents, mesothelioma, triple A History of Any Multi-Drug Resistant Organisms: None Reported Past Surgical History: Heart Catheterization, Heart Catheterization With Stent Additional Past Surgical History / Comment(s): Aortic repair february 2018, port Past Anesthesia/Blood Transfusion Reactions: No Reported Reaction Additional Past Anesthesia/Blood Transfusion Reaction / Comm: Pt is unsure if he has ever received blood. Date of Last Stent Placement:: aortic stent Past Psychological History: No Psychological Hx Reported Additional Psychological History / Comment(s): resides with mother, uses walker and cane and is oxygen dependant. Smoking Status: Former smoker Past Alcohol Use History: None Reported Additional Past Alcohol Use History / Comment(s): Pt quit smoking in 2007 and had been a half pack a day smoker for 30 yrs. Past Drug Use History: None Reported - Past Family History Father Family Medical History: Cancer Additional Family Medical History / Comment(s): Father had pancreatic cancer and at age 45yrs. Mother Family Medical History: Chest Pain / Angina, Diabetes Mellitus Additional Family Medical History / Comment(s): Mother is alive and 78 yrs old. Medications and Allergies Home Medications Medication Instructions Recorded Confirmed Type Chlorthalidone 50 mg PO DAILY 12/28/17 06/12/18 History Diazepam [Valium] 5 mg PO BID 12/28/17 06/12/18 History Spironolactone [Aldactone] 25 mg PO DAILY 12/28/17 06/12/18 History Folic Acid 1 mg PO DAILY 05/06/18 06/12/18 History Labetalol [Trandate] 400 mg PO BID 05/06/18 06/12/18 History Magnesium Oxide [Mag-Oxide] 400 mg PO BID 05/06/18 06/12/18 History Montelukast [Singulair] 10 mg PO DAILY 05/06/18 06/12/18 History cloNIDine HCL [Catapres] 0.3 mg PO TID 05/06/18 06/12/18 History Ondansetron HCl [Zofran] 4 mg PO DAILY PRN 05/14/18 06/12/18 History oxyCODONE-APAP 10-325MG [Percocet 1 tab PO Q6H 05/14/18 06/12/18 History 10-325 mg] Albuterol Inhaler [Ventolin Hfa 2 puff INHALATION RT-QID PRN 06/11/18 06/12/18 History Inhaler] Dexamethasone 4 mg PO DIRECTED 06/11/18 06/12/18 History Diltiazem HCl [Cartia Xt] 240 mg PO DAILY 06/11/18 06/12/18 History Dronabinol 5 mg PO BID 06/11/18 06/12/18 History Doxycycline Hyclate 100 mg PO BID 06/12/18 06/12/18 History Megestrol [Megace] 800 mg PO DAILY 06/12/18 06/12/18 History Allergies Allergy/AdvReac Type Severity Reaction Status Date / Time valsartan [From [facility]] Allergy Anaphylaxis Verified 06/12/18 12:27 Physical Exam Vitals: Vital Signs Temp Pulse Pulse Resp BP BP Pulse Ox 06/12/18 07:10 98.1 F 96 16 176/88 96 06/12/18 02:41 22 06/12/18 00:31 97.8 F 93 26 H 155/79 94 L 06/11/18 23:32 82 24 153/84 95 06/11/18 23:30 84 24 152/100 96 06/11/18 22:08 97.9 F 89 26 H 161/106 93 L 06/11/18 19:57 98.0 F 88 20 151/100 95 Intake and Output 06/11/18 06/12/18 06/12/18 22:59 06:59 14:59 Intake Total 1000 Output Total 3000 Balance -2000 Intake: Intake, IV Titration 1000 Amount Calcium Gluconate 1,000 500 mg In Sodium Chloride 0.9 % 100 ml @ 100 mls/hr IVPB ONCE ONE Rx#: [id number] Vancomycin 2,000 mg In 500 Sodium Chloride 0.9% 500 ml 500 ml @ 250 mls/hr IVPB ONCE STA Rx#: [id number] Output: Urine 3000 Uretheral (Rubin) 3000 Other: Voiding Method Indwelling Catheter Weight 112.945 kg General: In no acute distress. Sleeping. HEENT: Mucosa moist. Neck: Neck supple. Lymph: No cervical/supraclavicular LAD. Lungs: CTA-B, Heart: RRR. No LE edema. Abdomen: Soft, nontender, nondistended, with positive bowel sounds. MSK: 4/4 strength in all 4 extremities. Neuro: Sleeping, arousable and oriented however very sleepy and keeps falling asleep throughout our meeting. Skin: No jaundice or rash. Psych: Appropriate affect. Results CBC & Chem 7: 06/12/18 11:17 06/12/18 11:17 Labs: Abnormal Lab Results - Last 24 Hours (Table) 06/11/18 06/11/18 06/11/18 Range/Units 20:28 20:28 20:28 WBC 1.2 L* (3.8-10.6) k/uL RBC 3.04 L (4.30-5.90) m/uL Hgb 8.1 L D (13.0-17.5) gm/dL Hct 24.9 L (39.0-53.0) % RDW 18.1 H (11.5-15.5) % Plt Count 93 L D (150-450) k/uL Neutrophils # 1.0 L (1.3-7.7) k/uL Lymphocytes # 0.2 L (1.0-4.8) k/uL INR (<1.2) Potassium 6.0 H (3.5-5.1) mmol/L Chloride 97 L (98-107) mmol/L Carbon Dioxide (22-30) mmol/L BUN 67 H (9-20) mg/dL Glucose 116 H (74-99) mg/dL Magnesium 2.6 H (1.6-2.3) mg/dL Total Creatine Kinase 21 L (55-170) U/L Albumin (3.5-5.0) g/dL Urine Protein (Negative) Urine Blood (Negative) Urine RBC (0-5) /hpf 06/11/18 06/11/18 06/12/18 Range/Units 20:28 22:39 11:17 WBC 1.1 L* (3.8-10.6) k/uL RBC 3.26 L (4.30-5.90) m/uL Hgb 8.4 L (13.0-17.5) gm/dL Hct 26.6 L (39.0-53.0) % RDW 17.8 H (11.5-15.5) % Plt Count 82 L (150-450) k/uL Neutrophils # 0.9 L (1.3-7.7) k/uL Lymphocytes # 0.1 L (1.0-4.8) k/uL INR 1.3 H (<1.2) Potassium (3.5-5.1) mmol/L Chloride (98-107) mmol/L Carbon Dioxide (22-30) mmol/L BUN (9-20) mg/dL Glucose (74-99) mg/dL Magnesium (1.6-2.3) mg/dL Total Creatine Kinase (55-170) U/L Albumin (3.5-5.0) g/dL Urine Protein Trace H (Negative) Urine Blood Moderate H (Negative) Urine RBC 22 H (0-5) /hpf 06/12/18 Range/Units 11:17 WBC (3.8-10.6) k/uL RBC (4.30-5.90) m/uL Hgb (13.0-17.5) gm/dL Hct (39.0-53.0) % RDW (11.5-15.5) % Plt Count (150-450) k/uL Neutrophils # (1.3-7.7) k/uL Lymphocytes # (1.0-4.8) k/uL INR (<1.2) Potassium 5.5 H (3.5-5.1) mmol/L Chloride 95 L (98-107) mmol/L Carbon Dioxide 32 H (22-30) mmol/L BUN 63 H (9-20) mg/dL Glucose 128 H (74-99) mg/dL Magnesium (1.6-2.3) mg/dL Total Creatine Kinase (55-170) U/L Albumin 3.3 L (3.5-5.0) g/dL Urine Protein (Negative) Urine Blood (Negative) Urine RBC (0-5) /hpf TSH, LFT's, UA unremarkable. Chest x-ray: report reviewed CT scan - abdomen: report reviewed CT Scan - head: report reviewed CT scan - pelvis: report reviewed Assessment and Plan Assessment: 1. Mesothelioma on chemotherapy 2. Pancytopenia, due to chemotherapy 3. Right lower lobe pneumonia 4. Lethargy due to infection 5. Atrial fibrillation 6. HTN 7. HLP 8. History of CVA Plan: Mr. Powell is a very pleasant 57-year-old gentleman with a history of multiple comorbidities including metastatic mesothelioma on palliative chemotherapy with Alimta, here for increasing weakness found to have a pneumonia and pancytopenia from chemotherapy. His next dose of Alimta is due on 06/23/18. Supportive transfusion for hemoglobin less than 7, platelet less than 15 or bleeding, and monitor his neutropenia. No G-CSF therapy at this time as his ANC is 900 however if this continues to down trend or if his infection is difficult to control then we will consider G-CSF therapy. I suspect his cytopenias will start to improve as he is reaching his krzysztof. Hold chemotherapy while inpatient. He should follow up with Dr. de leon follow-up prior to his next cycle of chemo. Antibiotics as per primary team and infectious disease team. We'll continue to follow the patient with you. Discussed with the patient and his son at bedside and all of their questions were answered. They were agreeable to the plan. Time with Patient: Less than 30
[2018-06-12] MEDS: CEFEPIME 2 GM in SODIUM CHLORIDE 0.9% 50 ML IVPB SCH (18:05)
[2018-06-13] MEDS: LABETALOL 200 MG TAB PO SCH ×5 (01:14→21:05)
[2018-06-13] MEDS: DEXAMETHASONE 4 MG TAB PO SCH ×3 (01:14→21:05)
[2018-06-13] MEDS: CEFEPIME 2 GM in SODIUM CHLORIDE 0.9% 50 ML IVPB SCH ×4 (01:14→23:30)
[2018-06-13] MEDS: VANCOMYCIN 1,750 MG in SODIUM CHLORIDE 0.9% 500 ML 500 ML IVPB SCH ×2 (02:22→13:55)
[2018-06-13] MEDS: oxyCODONE-APAP 10-325MG 1 EACH TAB PO PRN ×5 (04:02→21:05)
[2018-06-13] MEDS: DILTIAZEM CD 240 MG CAP.ER.24H PO SCH (08:22)
[2018-06-13] MEDS: SPIRONOLACTONE 25 MG TAB PO SCH (08:22)
[2018-06-13] MEDS: cloNIDine HCL 0.1 MG TAB PO SCH ×3 (08:22→21:05)
[2018-06-13] MEDS: APIXABAN 5 MG TAB PO SCH ×2 (08:23→21:05)
[2018-06-13] MEDS: LOSARTAN 25 MG TAB PO SCH ×2 (08:23→21:05)
[2018-06-13] MEDS ORDERED: SODIUM POLYSTYRENE SULFONATE 15 GM/60 ML BOTTLE PO STA (11:25)
--- NOTE | 2018-06-13 11:32 | P.PN ---
Subjective Progress Note Date: 06/13/18 David underwood is a 57-year-old male who presented to [facility] emergency room with a chief complaint of severe weakness patient was unable to stand and walk at home, his weakness has been worsening over the last several days, he has known history of mesothelioma and had received chemotherapy recently. Patient presented to emergency room, he was evaluated by Dr. Ingram he had evidence of right lower lobe infiltrate and right pleural effusion, he also had evidence of congestive heart failure on chest x-ray, his potassium was elevated at 6.0 his white blood count was low at 1.2 and his hemoglobin was 8.1 he was started on IV antibiotics cefepime and vancomycin and was admitted to medical floor for further evaluation. Patient was seen and examined by myself on 06/12/2018, he was alert and oriented plain comfortably in bed denies any pain however he is complaining of severe generalized weakness, he stated that he had some cough with yellow-green sputum production over the last few days, he has some shortness of breath with activity, but mostly he had generalized weakness and inability to stand or walk. Chest x-ray reviewed and revealed evidence of right lower lobe infiltrate and right pleural effusion, patient states that he follows with Dr. Domingo remote encoding center manager as outpatient. Consultation for pulmonary and for oncology was initiated. Patient has a known history of coronary artery disease he had previous history of cardiac catheterization with stent placement, he also has known history of hypertension, history of atrial fibrillation, history of aortic dissection with previous aortic repair with aortic stent placement in February 2018/ On 06/13/2018 patient is currently resting in bed. Per nursing staff patient had issues with swelling his breakfast this morning. Chest x-ray will be ordered. Speech consult for swallow evaluation and soft mechanical chopped diet has been ordered. This time patient denies chest pain or shortness breath. Denies nausea vomiting or diarrhea. Patient denies any urinary burning or frequency. Objective - Vital Signs Vital signs: Vital Signs Temp 97.8 F 06/13/18 08:16 Pulse 80 06/13/18 08:16 Resp 19 06/13/18 08:16 BP 158/90 06/13/18 08:16 Pulse Ox 95 06/13/18 08:16 Intake & Output 06/12/18 06/13/18 06/13/18 18:59 06:59 18:59 Intake Total 840 Output Total 1300 2425 Balance -1300 -1585 Weight 99.5 kg Intake: Intake, IV Titration 600 Amount Cefepime 2 gm In Sodium 100 Chloride 0.9% 50 ml @ 100 mls/hr IVPB Q8HR [facility] Rx# :[id number] Vancomycin 1,750 mg In 500 Sodium Chloride 0.9% 500 ml 500 ml @ 167 mls/hr IVPB Q12H [facility] Rx#: [id number] Oral 240 Output: Urine 1300 2425 Uretheral (Rubin) 1500 Other: Voiding Method Indwelling Catheter Indwelling Catheter Indwelling Catheter - Exam In general patient is alert and oriented answering questions appropriately HEENT head normocephalic and atraumatic Neck is supple no JVD no goiter no lymphadenopathy no carotid bruit Chest exam reveals a few scattered crackles bilaterally no wheezing Cardiac exam reveals regular heart sounds S1 and S2 no gallops no murmurs Abdomen is soft nontender no organomegaly with normal bowel sounds no palpable masses Extremity exam reveals 2+ edema no cyanosis or clubbing Neurological exam reveals generalized weakness without any focal deficit - Labs CBC & Chem 7: 06/12/18 11:17 06/12/18 11:17 Labs: Abnormal Lab Results - Last 24 Hours (Table) 06/12/18 06/12/18 Range/Units 11:17 11:17 WBC 1.1 L* (3.8-10.6) k/uL RBC 3.26 L (4.30-5.90) m/uL Hgb 8.4 L (13.0-17.5) gm/dL Hct 26.6 L (39.0-53.0) % RDW 17.8 H (11.5-15.5) % Plt Count 82 L (150-450) k/uL Neutrophils # 0.9 L (1.3-7.7) k/uL Lymphocytes # 0.1 L (1.0-4.8) k/uL Potassium 5.5 H (3.5-5.1) mmol/L Chloride 95 L (98-107) mmol/L Carbon Dioxide 32 H (22-30) mmol/L BUN 63 H (9-20) mg/dL Glucose 128 H (74-99) mg/dL Albumin 3.3 L (3.5-5.0) g/dL Microbiology - Last 24 Hours (Table) 06/11/18 20:28 Blood Culture - Preliminary Blood No Growth after 24 hours Assessment and Plan Assessment: #1 generalized weakness multifactorial related to hyperkalemia, pneumonia, mesothelioma with chemotherapy #2 hyperkalemia patient was treated in emergency room for potassium of 6 we are reordering stat labs at this time to assess potassium level and need for further treatment. Potassium 5.5. Kayexalate will be ordered. Recheck in a.m. Recheck in Am #3 mesothelioma, patient was receiving chemotherapy, will consult Dr. Montalvo for follow-up. Dr. Vasquez following per oncology, we'll hold chemotherapy while inpatient. Patient should follow-up outpatient for next cycle of chemo #4 leukopenia white blood count on presentation 1.2 will recheck #5 right lower lobe pneumonia patient was started on vancomycin and cefepime in the emergency room will continue with current medications at this time will obtain sputum culture and blood culture and adjust antibiotics accordingly #6 right pleural effusion pulmonary consultation was requested patient is well known to Dr. Domingo #7 generalized weakness at this time awaiting improvement in multiple medical problems, subsequently Will consult physical therapy and occupational therapy, patient may need admission to subacute rehab #8 underlying history of atrial fibrillation, at this time patient is on Eliquis for anticoagulation will monitor closely. #9 underlying history of hypertension maintained on Cardizem and clonidine and losartan will monitor blood pressure control and adjust medications accordingly #10 chronic pain syndrome patient has chronic back pain and is maintained on Percocet every 6 hours will continue at this time #11 thrombocytopenia. Platelet 82. Oncology service DVT prophylaxis eliquis. GI prophylaxis Protonix I performed an examination of the patient and discussed their management with the Nurse Practitioner. I have reviewed the Nurse Practitioner's notes and agree with the documented findings and plan of care
--- NOTE | 2018-06-13 11:49 | XR ---
EXAMINATION TYPE: XR chest 2V DATE OF EXAM: 06/13/2018 HISTORY: Possible aspiration. REFERENCE: Previous study dated 06/11/2018. FINDINGS: There has been a midline sternotomy. There is a right internal jugular catheter in place. I ts tip is in the superior vena cava at the level of the cavoatrial junction. The heart is enlarged. There is increased opacity throughout the right lung which May represent layer ing fluid. I could not exclude a right lower lobe infiltrate either representing atelectasis or pneum onia. The left lung appears clear. There is unfolding and ectasia of the thoracic aorta. IMPRESSION: 1. CARDIOMEGALY. 2. GENERALIZED INCREASED OPACITY OF THE RIGHT HEMITHORAX. 3. RIGHT BASILAR AIRSPACE DISEASE. 4. RIGHT-SIDED EFFUSION.
[2018-06-13 13:22] LABS: Anisocytosis Slight; HCT 27.2 % (39.0-53.0); HGB 8.6 gm/dL (13.0-17.5); Hypochromasia Moderate; MCHC 31.6 g/dL (31.0-37.0); MCV 82.3 fL (80.0-100.0); Mean Platelet Volume 9.3; RDW 17.6 % (11.5-15.5)
[2018-06-13 13:26] LABS: Platelet Count 65 k/uL (150-450); WBC 0.8 k/uL (3.8-10.6)
[2018-06-13 13:32] LABS: Albumin 3.4 g/dL (3.5-5.0); Calcium 9.4 mg/dL (8.4-10.2); Magnesium 2.1 mg/dL (1.6-2.3); Total Bilirubin 0.5 mg/dL (0.2-1.3); Total Protein 6.9 g/dL (6.3-8.2)
[2018-06-14] MEDS ORDERED: VANCOMYCIN TROUGH DUE 1 EACH MISC MISCELLANE ONE (01:00)
[2018-06-14] MEDS: oxyCODONE-APAP 10-325MG 1 EACH TAB PO PRN ×6 (02:53→23:19)
[2018-06-14] MEDS ORDERED: VANCOMYCIN IV PER PHARMACY 1 EACH MISC MISCELLANE ONE (05:45)
[2018-06-14] MEDS: CEFEPIME 2 GM in SODIUM CHLORIDE 0.9% 50 ML IVPB SCH ×3 (09:07→23:19)
[2018-06-14] MEDS: LOSARTAN 25 MG TAB PO SCH ×2 (09:16→21:53)
[2018-06-14] MEDS: FOLIC ACID 1 MG TAB PO SCH (09:16)
[2018-06-14] MEDS: cloNIDine HCL 0.1 MG TAB PO SCH ×3 (09:16→21:52)
[2018-06-14] MEDS: APIXABAN 5 MG TAB PO SCH (09:16)
[2018-06-14] MEDS: SPIRONOLACTONE 25 MG TAB PO SCH (09:16)
[2018-06-14] MEDS: PANTOPRAZOLE 40 MG TABLET PO SCH (09:16)
[2018-06-14] MEDS: DEXAMETHASONE 4 MG TAB PO SCH ×2 (09:17→21:53)
[2018-06-14] MEDS: DILTIAZEM CD 240 MG CAP.ER.24H PO SCH (09:17)
[2018-06-14] MEDS: LABETALOL 200 MG TAB PO SCH ×4 (09:17→21:53)
[2018-06-14 09:30] LABS: Anisocytosis Slight; HCT 29.3 % (39.0-53.0); HGB 9.4 gm/dL (13.0-17.5); Hypochromasia Moderate; MCH 26.6 pg (25.0-35.0); MCHC 32.2 g/dL (31.0-37.0); MCV 82.5 fL (80.0-100.0); Mean Platelet Volume 8.6; RBC 3.55 m/uL (4.30-5.90)
[2018-06-14 09:31] LABS: Platelet Count 33 k/uL (150-450); WBC 0.8 k/uL (3.8-10.6)
[2018-06-14] MEDS: FILGRASTIM-SNDZ 480 MCG/0.8 ML SYRINGE SQ SCH (09:38)
--- NOTE | 2018-06-14 09:59 | P.PN ---
Subjective Progress Note Date: 06/14/18 David underwood is a 57-year-old male who presented to [facility] emergency room with a chief complaint of severe weakness patient was unable to stand and walk at home, his weakness has been worsening over the last several days, he has known history of mesothelioma and had received chemotherapy recently. Patient presented to emergency room, he was evaluated by Dr. Ingram he had evidence of right lower lobe infiltrate and right pleural effusion, he also had evidence of congestive heart failure on chest x-ray, his potassium was elevated at 6.0 his white blood count was low at 1.2 and his hemoglobin was 8.1 he was started on IV antibiotics cefepime and vancomycin and was admitted to medical floor for further evaluation. Patient was seen and examined by myself on 06/12/2018, he was alert and oriented plain comfortably in bed denies any pain however he is complaining of severe generalized weakness, he stated that he had some cough with yellow-green sputum production over the last few days, he has some shortness of breath with activity, but mostly he had generalized weakness and inability to stand or walk. Chest x-ray reviewed and revealed evidence of right lower lobe infiltrate and right pleural effusion, patient states that he follows with Dr. Domingo valve maker as outpatient. Consultation for pulmonary and for oncology was initiated. Patient has a known history of coronary artery disease he had previous history of cardiac catheterization with stent placement, he also has known history of hypertension, history of atrial fibrillation, history of aortic dissection with previous aortic repair with aortic stent placement in February 2018/ On 06/13/2018 patient is currently resting in bed. Per nursing staff patient had issues with swelling his breakfast this morning. Chest x-ray will be ordered. Speech consult for swallow evaluation and soft mechanical chopped diet has been ordered. This time patient denies chest pain or shortness breath. Denies nausea vomiting or diarrhea. Patient denies any urinary burning or frequency. 06/14/2018 patient sitting up in bed. Requesting that he is seen by physical therapy. Reports improvement in his shortness of breath. Currently on cefepime and vancomycin for pneumonia. Chest x-ray showing a generalized increased opacity of the right hemithorax. Patient followed by oncology and pulmonary service. Patient denies any chest pain. Reports having bowel movements. Has Rubin catheter in place for urinary retention and wounds on his buttocks. Objective - Vital Signs Vital signs: Vital Signs Temp 97.5 F L 06/14/18 07:28 Pulse 91 06/14/18 07:28 Resp 16 06/14/18 07:28 BP 139/84 06/14/18 07:28 Pulse Ox 95 06/14/18 07:28 Intake & Output 06/13/18 06/14/18 06/14/18 18:59 06:59 18:59 Intake Total 670 Output Total 2375 Balance 670 -2375 Intake: Intake, IV Titration 550 Amount Cefepime 2 gm In Sodium 50 Chloride 0.9% 50 ml @ 100 mls/hr IVPB Q8HR [facility] Rx# :[id number] Vancomycin 1,750 mg In 500 Sodium Chloride 0.9% 500 ml 500 ml @ 167 mls/hr IVPB Q12H [facility] Rx#: [id number] Oral 120 Output: Urine 2375 Other: Voiding Method Indwelling Catheter Indwelling Catheter Indwelling Catheter - Exam Head normocephalic Neck supple Lungs diminished bilaterally Heart regular rate and rhythm S1-S2, no rub or gallop Abdomen is soft nontender nondistended positive bowel sounds no hepatosplenomegaly Extremities no edema Neuro alert and orientated to 3 - Labs CBC & Chem 7: 06/14/18 07:47 06/13/18 12:54 Labs: Abnormal Lab Results - Last 24 Hours (Table) 06/13/18 06/13/18 06/14/18 Range/Units 12:54 12:54 07:47 WBC 0.8 L* 0.8 L* (3.8-10.6) k/uL RBC 3.30 L 3.55 L (4.30-5.90) m/uL Hgb 8.6 L 9.4 L (13.0-17.5) gm/dL Hct 27.2 L 29.3 L (39.0-53.0) % RDW 17.6 H 18.0 H (11.5-15.5) % Plt Count 65 L 33 L (150-450) k/uL Sodium 136 L (137-145) mmol/L Potassium 6.0 H (3.5-5.1) mmol/L Chloride 95 L (98-107) mmol/L Carbon Dioxide 31 H (22-30) mmol/L BUN 58 H (9-20) mg/dL Glucose 141 H (74-99) mg/dL ALT 19 L (21-72) U/L Albumin 3.4 L (3.5-5.0) g/dL Microbiology - Last 24 Hours (Table) 06/11/18 20:28 Blood Culture - Preliminary Blood No Growth after 48 hours Assessment and Plan Assessment: #1 generalized weakness multifactorial related to hyperkalemia, pneumonia, mesothelioma with chemotherapy #2 hyperkalemia: Awaiting today's labs. Patient did receive Kayexalate yesterday. #3 mesothelioma, patient was receiving palliative chemotherapy, will consult Dr. Montalvo for follow-up. Dr. Vasquez following per oncology, we'll hold chemotherapy while inpatient. Patient should follow-up outpatient for next cycle of chemo #4 pancytopenia due to chemotherapy: Oncology following. Started on zarxio for his neutropenia. Continue to monitor platelets. They have decreased to 33 #5 right lower lobe pneumonia patient was started on vancomycin and cefepime in the emergency room will continue with current medications at this time will obtain sputum culture and blood culture and adjust antibiotics accordingly. Consult infectious disease #6 right pleural effusion pulmonary consultation was requested patient is well known to Dr. Domingo #7 generalized weakness at this time awaiting improvement in multiple medical problems, subsequently Will consult physical therapy and occupational therapy, patient may need admission to subacute rehab #8 underlying history of chronic atrial fibrillation, at this time patient is on Eliquis for anticoagulation will monitor closely. #9 underlying history of hypertension maintained on Cardizem and clonidine and losartan will monitor blood pressure control and adjust medications accordingly #10 chronic pain syndrome patient has chronic back pain and is maintained on Percocet every 6 hours will continue at this time #11 urinary retention Rubin catheter in place. #12 stage I to 2 ulcerations on the buttocks. We'll apply zinc oxide. Keep pressure off of the area. Consult infectious disease #13 history of strokes DVT prophylaxis eliquis. GI prophylaxis Protonix I performed an examination of the patient and discussed their management with the physician Loader Unloader. I have reviewed the Physician Loader Unloader's notes and agree with the documented findings and plan of care
[2018-06-14 10:30] LABS: Poikilocytosis (M) Present
--- NOTE | 2018-06-14 12:45 | P.PN ---
Subjective Progress Note Date: 06/14/18 Principal diagnosis: Mesothielioma Patient is resting comfortably in bed, ex- at bedside. He recently moved in with her due to inability to care for himself. Objective - Vital Signs Vital signs: Vital Signs Temp 97.5 F L 06/14/18 07:28 Pulse 91 06/14/18 07:28 Resp 16 06/14/18 07:28 BP 139/84 06/14/18 07:28 Pulse Ox 95 06/14/18 07:28 Intake & Output 06/13/18 06/14/18 06/14/18 18:59 06:59 18:59 Intake Total 670 100 Output Total 2375 Balance 670 -2375 100 Intake: IV 100 Cefepime 2 gm In Sodium 100 Chloride 0.9% 50 ml @ 100 mls/hr IVPB Q8HR [facility] Rx# :[id number] Intake, IV Titration 550 Amount Cefepime 2 gm In Sodium 50 Chloride 0.9% 50 ml @ 100 mls/hr IVPB Q8HR [facility] Rx# :[id number] Vancomycin 1,750 mg In 500 Sodium Chloride 0.9% 500 ml 500 ml @ 167 mls/hr IVPB Q12H [facility] Rx#: [id number] Oral 120 Output: Urine 2375 Other: Voiding Method Indwelling Catheter Indwelling Catheter Indwelling Catheter - Exam General: In no acute distress. Sleeping. HEENT: Mucosa moist. Neck: Neck supple. Lymph: No cervical/supraclavicular LAD. Lungs: CTA-B, Heart: RRR. No LE edema. Abdomen: Soft, nontender, nondistended, with positive bowel sounds. MSK: 4/4 strength in all 4 extremities. Neuro: Sleeping, arousable, agitated. Skin: No jaundice or rash. Psych: Appropriate affect. - Labs CBC & Chem 7: 06/14/18 07:47 06/13/18 12:54 Labs: Abnormal Lab Results - Last 24 Hours (Table) 06/13/18 06/13/18 06/14/18 Range/Units 12:54 12:54 07:47 WBC 0.8 L* 0.8 L* (3.8-10.6) k/uL RBC 3.30 L 3.55 L (4.30-5.90) m/uL Hgb 8.6 L 9.4 L (13.0-17.5) gm/dL Hct 27.2 L 29.3 L (39.0-53.0) % RDW 17.6 H 18.0 H (11.5-15.5) % Plt Count 65 L 33 L (150-450) k/uL Sodium 136 L (137-145) mmol/L Potassium 6.0 H (3.5-5.1) mmol/L Chloride 95 L (98-107) mmol/L Carbon Dioxide 31 H (22-30) mmol/L BUN 58 H (9-20) mg/dL Glucose 141 H (74-99) mg/dL ALT 19 L (21-72) U/L Albumin 3.4 L (3.5-5.0) g/dL Microbiology - Last 24 Hours (Table) 06/11/18 20:28 Blood Culture - Preliminary Blood No Growth after 48 hours Assessment and Plan Plan: TSH, LFT's, UA unremarkable. Chest x-ray: report reviewed CT scan - abdomen: report reviewed CT Scan - head: report reviewed CT scan - pelvis: report reviewed Assessment/Plan: 1. Mesothelioma on chemotherapy: - Status Post cycle 2 of [place] single therapy 06/02/18 2. Pancytopenia, due to chemotherapy: *Neutropenia - Did not receive [place] Stimulating Factor after chemotherapy - Zarxio has been initiated inpatient - Education on neutropenia risks with ex- and patient - Monitor closely for progressive fevers *Anemia - Secondary to chemotherapy with iron deficiency component - Status Post one parental IV Faraheme in office on 06/07/18 - Monitor closely and if less than 7, transfuse PRBC *Thrombocytopenia: - Secondary to chemotherapy - Platlets are less than 50K, will hold Eliquis/anticoagulation until return to 50K or greater - Transfuse if signs of bleeding or less than 10K 3. Right lower lobe pneumonia: - Per Primary Team, agree with IV abx 4. Lethargy due to infection: 5. Atrial fibrillation: - On Eliquis although platlets are less than 50K, will hold Eliquis at this time until platlets recover to greater then 50K. 6. HTN 7. HLP 8. History of CVA
[2018-06-14 13:02] LABS: ALT 23 U/L (21-72); AST 21 U/L (17-59); Albumin 3.4 g/dL (3.5-5.0); Alkaline Phosphatase 84 U/L (38-126); Anion Gap 8 mmol/L; Blood Urea Nitrogen 58 mg/dL (9-20); Calcium 9.4 mg/dL (8.4-10.2); Carbon Dioxide 31 mmol/L (22-30); Chloride 96 mmol/L (98-107); Glucose 121 mg/dL (74-99); Potassium 5.9 mmol/L (3.5-5.1); Sodium 135 mmol/L (137-145); Total Bilirubin 0.6 mg/dL (0.2-1.3); Total Protein 7.1 g/dL (6.3-8.2)
[2018-06-14] MEDS ORDERED: SODIUM POLYSTYRENE SULFONATE 15 GM/60 ML BOTTLE PO STA (13:15)
[2018-06-14] MEDS: VANCOMYCIN 1,750 MG in SODIUM CHLORIDE 0.9% 500 ML 500 ML IVPB SCH (16:17)
[2018-06-14 16:35] LABS: ALT 28 U/L (21-72); AST 21 U/L (17-59); Albumin 3.8 g/dL (3.5-5.0); Alkaline Phosphatase 82 U/L (38-126); Anion Gap 11 mmol/L; Blood Urea Nitrogen 60 mg/dL (9-20); Calcium 9.8 mg/dL (8.4-10.2); Carbon Dioxide 32 mmol/L (22-30); Chloride 92 mmol/L (98-107); Glucose 116 mg/dL (74-99); Potassium 5.9 mmol/L (3.5-5.1); Sodium 135 mmol/L (137-145); Total Bilirubin 0.8 mg/dL (0.2-1.3); Total Protein 7.4 g/dL (6.3-8.2)
--- NOTE | 2018-06-14 20:23 | P.CNPUL ---
History of Present Illness Consult date: 06/13/18 (Late entry note) Reason for consult: dyspnea, cough, pneumonia, lung mass Chief complaint: Progressive shortness of breath along with generalized weakness History of present illness: 57-year-old well-known to me patient presented at [facility] in February for dissecting aneurysm was transferred to [facility] the aneurysm was repaired but patient had large pleural effusion and the cytology was positive for mesothelioma, patient has been under care of Dr. Schumacher undergoing chemotherapy patient is been having progressive generalized weakness in the last few days also has cough yellowish sputum production with those problem presented into the emergency department was eventually admitted into the hospital, patient has been started on broad-spectrum antibiotics and is being followed by oncology service as well right-sided pleural effusion is noted along with right-sided consolidation and I was asked to evaluate this patient further, Review of Systems All systems: negative Past Medical History Past Medical History: Atrial Fibrillation, Cancer, CVA/TIA, GERD/Reflux, Hyperlipidemia, Hypertension, Respiratory Disorder Additional Past Medical History / Comment(s): kidney stents, mesothelioma, triple A History of Any Multi-Drug Resistant Organisms: None Reported Past Surgical History: Heart Catheterization, Heart Catheterization With Stent Additional Past Surgical History / Comment(s): Aortic repair february 2018, port Past Anesthesia/Blood Transfusion Reactions: No Reported Reaction Additional Past Anesthesia/Blood Transfusion Reaction / Comment(s): Pt is unsure if he has ever received blood. Date of Last Stent Placement:: aortic stent Past Psychological History: No Psychological Hx Reported Additional Psychological History / Comment(s): resides with mother, uses walker and cane and is oxygen dependant. Smoking Status: Former smoker Past Alcohol Use History: None Reported Additional Past Alcohol Use History / Comment(s): Pt quit smoking in 2007 and had been a half pack a day smoker for 30 yrs. Past Drug Use History: None Reported - Past Family History Father Family Medical History: Cancer Additional Family Medical History / Comment(s): Father had pancreatic cancer and at age 45yrs. Mother Family Medical History: Chest Pain / Angina, Diabetes Mellitus Additional Family Medical History / Comment(s): Mother is alive and 78 yrs old. Medications and Allergies Home Medications Medication Instructions Recorded Confirmed Type Chlorthalidone 50 mg PO DAILY 12/28/17 06/12/18 History Diazepam [Valium] 5 mg PO BID 12/28/17 06/12/18 History Spironolactone [Aldactone] 25 mg PO DAILY 12/28/17 06/12/18 History Folic Acid 1 mg PO DAILY 05/06/18 06/12/18 History Labetalol [Trandate] 400 mg PO BID 05/06/18 06/12/18 History Magnesium Oxide [Mag-Oxide] 400 mg PO BID 05/06/18 06/12/18 History Montelukast [Singulair] 10 mg PO DAILY 05/06/18 06/12/18 History cloNIDine HCL [Catapres] 0.3 mg PO TID 05/06/18 06/12/18 History Ondansetron HCl [Zofran] 4 mg PO DAILY PRN 05/14/18 06/12/18 History oxyCODONE-APAP 10-325MG [Percocet 1 tab PO Q6H 05/14/18 06/12/18 History 10-325 mg] Albuterol Inhaler [Ventolin Hfa 2 puff INHALATION RT-QID PRN 06/11/18 06/12/18 History Inhaler] Dexamethasone 4 mg PO DIRECTED 06/11/18 06/12/18 History Diltiazem HCl [Cartia Xt] 240 mg PO DAILY 06/11/18 06/12/18 History Dronabinol 5 mg PO BID 06/11/18 06/12/18 History Doxycycline Hyclate 100 mg PO BID 06/12/18 06/12/18 History Megestrol [Megace] 800 mg PO DAILY 06/12/18 06/12/18 History Allergies Allergy/AdvReac Type Severity Reaction Status Date / Time valsartan [From Gene] Allergy Anaphylaxis Verified 06/12/18 12:27 Physical Exam Vitals: Vital Signs Temp Pulse Pulse Resp BP Pulse Ox 06/14/18 14:40 98.5 F 84 16 162/81 95 06/14/18 12:33 97 151/89 06/14/18 07:28 97.5 F L 91 16 139/84 95 06/14/18 07:10 18 06/13/18 23:00 99.1 F 79 18 138/81 95 06/13/18 20:57 98.6 F 87 94 20 149/86 Intake and Output 10/22/18 10/22/18 10/22/18 06:59 14:59 22:59 Intake Total 350 0 Output Total 1275 1350 Balance -1275 350 -1350 Intake: IV 100 Cefepime 2 gm In Sodium 100 Chloride 0.9% 50 ml @ 100 mls/hr IVPB Q8HR [facility] Rx# :[id number] Oral 250 0 Output: Urine 1275 1350 Uretheral (Rubin) 1350 Other: Voiding Method Indwelling Catheter General: In no acute distress. Sleeping. HEENT: Mucosa moist. Neck: Neck supple. Lymph: No cervical/supraclavicular LAD. Lungs: CTA-B, Heart: RRR. No LE edema. Abdomen: Soft, nontender, nondistended, with positive bowel sounds. MSK: 4/4 strength in all 4 extremities. Neuro: Sleeping, arousable and oriented however very sleepy and keeps falling asleep throughout our meeting. Skin: No jaundice or rash. Psych: Appropriate affect. Results - Laboratory Findings CBC and BMP: 06/14/18 07:47 06/14/18 13:22 PT/INR, D-dimer PT 12.0 sec (9.0-12.0) 06/11/18 20:28 INR 1.3 (<1.2) H 06/11/18 20:28 Abnormal lab findings: Abnormal Labs 06/11/18 06/11/18 06/11/18 20:28 20:28 20:28 WBC 1.2 L* RBC 3.04 L Hgb 8.1 L D Hct 24.9 L RDW 18.1 H Plt Count 93 L D Neutrophils # 1.0 L Lymphocytes # 0.2 L INR Sodium Potassium 6.0 H Chloride 97 L Carbon Dioxide BUN 67 H Glucose 116 H Magnesium 2.6 H ALT Total Creatine Kinase 21 L Albumin Urine Protein Urine Blood Urine RBC 06/11/18 06/11/18 06/12/18 20:28 22:39 11:17 WBC 1.1 L* RBC 3.26 L Hgb 8.4 L Hct 26.6 L RDW 17.8 H Plt Count 82 L Neutrophils # 0.9 L Lymphocytes # 0.1 L INR 1.3 H Sodium Potassium Chloride Carbon Dioxide BUN Glucose Magnesium ALT Total Creatine Kinase Albumin Urine Protein Trace H Urine Blood Moderate H Urine RBC 22 H 06/12/18 06/13/18 06/13/18 11:17 12:54 12:54 WBC 0.8 L* RBC 3.30 L Hgb 8.6 L Hct 27.2 L RDW 17.6 H Plt Count 65 L Neutrophils # Lymphocytes # INR Sodium 136 L Potassium 5.5 H 6.0 H Chloride 95 L 95 L Carbon Dioxide 32 H 31 H BUN 63 H 58 H Glucose 128 H 141 H Magnesium ALT 19 L Total Creatine Kinase Albumin 3.3 L 3.4 L Urine Protein Urine Blood Urine RBC 06/14/18 06/14/18 06/14/18 01:00 07:47 13:22 WBC 0.8 L* RBC 3.55 L Hgb 9.4 L Hct 29.3 L RDW 18.0 H Plt Count 33 L Neutrophils # Lymphocytes # INR Sodium 135 L 135 L Potassium 5.9 H 5.9 H Chloride 96 L 92 L Carbon Dioxide 31 H 32 H BUN 58 H 60 H Glucose 121 H 116 H Magnesium ALT Total Creatine Kinase Albumin 3.4 L Urine Protein Urine Blood Urine RBC - Diagnostic Findings Chest x-ray: report reviewed, image reviewed (Large right-sided pleural effusion along with right-sided pneumonia noted on admitted chest x-ray, multiple old infarct my repeat chest x-ray revealed progressive increased opacity of the right hemithorax on chest x-ray) Assessment and Plan Assessment: 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 Metastatic mesothelioma Right-sided pneumonia Pancytopenia including thrombocytopenia and neutropenia and anemia postchemotherapy Chronic atrial fibrillation on Eliquis Progressive generalized weakness multifactorial Hyperkalemia Plan: Continue supportive care Broad-spectrum antibiotic We will monitor observe clinical course closely hold on doing invasive procedure as likelihood of complications are more Will reviewed repeat chest x-ray if significant worsening is noted consider doing a computed tomography scan of the chest without dye Prognosis overall is guarded Further recommendations pending Time with Patient: Greater than 30
--- NOTE | 2018-06-14 20:27 | P.PN ---
Subjective Progress Note Date: 06/14/18 Principal diagnosis: Right-sided pneumonia, right large right-sided pleural effusion, metastatic mesothelioma, pancytopenia including anemia and thrombocytopenia and leukopenia , history of recent stroke and aortic dissection, generalized weakness and medical debility 06/14/2018, patient seen eval examined during the rounds clinically patient is slightly better well composed breathing relatively better does complaining of pain which is chronic old, on 5 L saturation is 95% and blood pressure is stable he is afebrile, and labs reviewed medications reviewed, radiographic studies reviewed as well 57-year-old well-known to me patient presented at [facility] in February for dissecting aneurysm was transferred to [facility] the aneurysm was repaired but patient had large pleural effusion and the cytology was positive for mesothelioma, patient has been under care of Dr. Schumacher undergoing chemotherapy patient is been having progressive generalized weakness in the last few days also has cough yellowish sputum production with those problem presented into the emergency department was eventually admitted into the hospital, patient has been started on broad-spectrum antibiotics and is being followed by oncology service as well right-sided pleural effusion is noted along with right-sided consolidation and I was asked to evaluate this patient further, Objective - Vital Signs Vital signs: Vital Signs Temp 98.5 F 06/14/18 14:40 Pulse 84 06/14/18 14:40 Resp 16 06/14/18 14:40 BP 162/81 06/14/18 14:40 Pulse Ox 95 06/14/18 14:40 Intake & Output 06/14/18 06/14/18 06/15/18 06:59 18:59 06:59 Intake Total 350 Output Total 2375 1350 Balance -2375 -1000 Intake: IV 100 Cefepime 2 gm In Sodium 100 Chloride 0.9% 50 ml @ 100 mls/hr IVPB Q8HR [facility] Rx# :[id number] Oral 250 Output: Urine 2375 1350 Uretheral (Rubin) 1350 Other: Voiding Method Indwelling Catheter Indwelling Catheter - Exam General: In no acute distress. Sleeping. HEENT: Mucosa moist. Neck: Neck supple. Lymph: No cervical/supraclavicular LAD. Lungs: Dullness to percussion and decrease in air entry on the right side about one third to half left clear to auscultation Heart: RRR. No LE edema. Abdomen: Soft, nontender, nondistended, with positive bowel sounds. MSK: 4/4 strength in all 4 extremities. Neuro: Sleeping, arousable and oriented however very sleepy and keeps falling asleep throughout our meeting. Skin: No jaundice or rash. Psych: Appropriate affect - Labs CBC & Chem 7: 06/14/18 07:47 06/14/18 13:22 Labs: Abnormal Lab Results - Last 24 Hours (Table) 06/14/18 06/14/18 06/14/18 Range/Units 01:00 07:47 13:22 WBC 0.8 L* (3.8-10.6) k/uL RBC 3.55 L (4.30-5.90) m/uL Hgb 9.4 L (13.0-17.5) gm/dL Hct 29.3 L (39.0-53.0) % RDW 18.0 H (11.5-15.5) % Plt Count 33 L (150-450) k/uL Sodium 135 L 135 L (137-145) mmol/L Potassium 5.9 H 5.9 H (3.5-5.1) mmol/L Chloride 96 L 92 L (98-107) mmol/L Carbon Dioxide 31 H 32 H (22-30) mmol/L BUN 58 H 60 H (9-20) mg/dL Glucose 121 H 116 H (74-99) mg/dL Albumin 3.4 L (3.5-5.0) g/dL Microbiology - Last 24 Hours (Table) 06/11/18 20:28 Blood Culture - Preliminary Blood No Growth after 48 hours Assessment and Plan Assessment: Moderate to large right-sided pleural effusion 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
[2018-06-14] MEDS ORDERED: SODIUM POLYSTYRENE SULFONATE 15 GM/60 ML BOTTLE PO ONE (20:46)
[2018-06-14] MEDS: ZINC OXIDE 20% OINT 28.4 GM TUBE TOPICAL SCH (21:52)
[2018-06-15] MEDS: oxyCODONE-APAP 10-325MG 1 EACH TAB PO PRN ×5 (03:41→22:27)
[2018-06-15] MEDS: CEFEPIME 2 GM in SODIUM CHLORIDE 0.9% 50 ML IVPB SCH ×2 (07:36→15:36)
[2018-06-15] MEDS: cloNIDine HCL 0.1 MG TAB PO SCH ×3 (07:37→21:45)
[2018-06-15] MEDS: LABETALOL 200 MG TAB PO SCH ×4 (07:37→21:45)
[2018-06-15] MEDS: LOSARTAN 25 MG TAB PO SCH ×2 (07:37→20:20)
[2018-06-15] MEDS: DILTIAZEM CD 240 MG CAP.ER.24H PO SCH (07:37)
[2018-06-15] MEDS: DEXAMETHASONE 4 MG TAB PO SCH ×2 (07:37→20:20)
[2018-06-15] MEDS: PANTOPRAZOLE 40 MG TABLET PO SCH (07:38)
[2018-06-15 07:43] LABS: Anisocytosis Slight; Basophils % (A) 0 %; Eosinophils % (A) 0 %; HCT 27.8 % (39.0-53.0); HGB 8.9 gm/dL (13.0-17.5); Hypochromasia Moderate; Lymphocytes # (A) 0.3 k/uL (1.0-4.8); Lymphocytes % (A) 8 %; MCH 26.4 pg (25.0-35.0); MCHC 31.9 g/dL (31.0-37.0); MCV 82.7 fL (80.0-100.0); Mean Platelet Volume 8.3; Monocytes # (A) 0.2 k/uL (0-1.0); Monocytes % (A) 6 %; Neutrophils # (A) 2.9 k/uL (1.3-7.7); Neutrophils % (A) 83 %; RBC 3.37 m/uL (4.30-5.90); RDW 18.4 % (11.5-15.5); WBC 3.5 k/uL (3.8-10.6)
[2018-06-15 07:46] LABS: Platelet Count 44 k/uL (150-450)
[2018-06-15] MEDS: ZINC OXIDE 20% OINT 28.4 GM TUBE TOPICAL SCH ×2 (07:52→20:20)
[2018-06-15 07:53] LABS: ALT 18 U/L (21-72); AST 21 U/L (17-59); Albumin 3.4 g/dL (3.5-5.0); Alkaline Phosphatase 78 U/L (38-126); Anion Gap 10 mmol/L; Blood Urea Nitrogen 52 mg/dL (9-20); Calcium 9.3 mg/dL (8.4-10.2); Carbon Dioxide 30 mmol/L (22-30); Chloride 94 mmol/L (98-107); Glucose 123 mg/dL (74-99); Potassium 5.5 mmol/L (3.5-5.1); Sodium 134 mmol/L (137-145); Total Bilirubin 0.6 mg/dL (0.2-1.3); Total Protein 6.7 g/dL (6.3-8.2)
--- NOTE | 2018-06-15 08:34 | P.CONS ---
History of Present Illness - Chief Complaint Medical debility - History of Present Illness I had the opportunity see patient for inpatient consultation with regard to medical debility. He is admitted to [facility] June 11 with generalized weakness and right lower lobe opacity. Seen by oncology for mental known mesothelioma. Seen by Dr. Domingo for the right pneumonia, effusion and mesothelioma. CT of abdomen and pelvis demonstrates aorta iliac stent as well as abnormal lung bases. Chest x-ray with cardiomegaly, right hemithorax opacity with effusion, airspace disease. Chest CT pending. PT reports maximal assistance for transfers and gait 3 feet with roller walker, limited endurance. Speech therapy assessment swallowing within functional limits. OT prescribed. Should note patient reports he has been home from [facility] 3 months. He reports that his ex-, whom he lives with, was giving him Robaxin instead of pain medicine and is becoming weak and incontinent. Previous functional history as elicited from patient: 57-year-old left-handed white male who is lives in one floor home with ex-. They share the cooking and laundry and ex- does the driving. Patient describes independent with sitdown or standup shower and gait with roller walker or cane. Regular doctors are doctors haseeb segura and Endy. History smoking remote past and doesn't drink. Review of Systems Review of systems: ENT: Denies sneezes or discharge. Eyes: Denies discharge or photophobia. Cardiac: Denies chest pain or palpitation. Pulmonary: Moderate shortness of breath. Gastrointestinal: Denies nausea, emesis, constipation, diarrhea. Reports some mild incontinence. Genitourinary: Reports incontinence. Musculoskeletal: Denies muscle or bone aches. Neurologic: Generalized weakness. Endocrine: Denies shakes or sweats. Oncology: Denies cancers. Dermatologic: Denies rash, itching, pruritus. ALLERGY/immunology: Denies sneezes, rashes. Past Medical History Past Medical History: Atrial Fibrillation, Cancer, CVA/TIA, GERD/Reflux, Hyperlipidemia, Hypertension, Respiratory Disorder Additional Past Medical History / Comment(s): kidney stents, mesothelioma, triple A History of Any Multi-Drug Resistant Organisms: None Reported Past Surgical History: Heart Catheterization, Heart Catheterization With Stent Additional Past Surgical History / Comment(s): Aortic repair february 2018, port Past Anesthesia/Blood Transfusion Reactions: No Reported Reaction Additional Past Anesthesia/Blood Transfusion Reaction / Comm: Pt is unsure if he has ever received blood. Date of Last Stent Placement:: aortic stent Past Psychological History: No Psychological Hx Reported Additional Psychological History / Comment(s): resides with mother, uses walker and cane and is oxygen dependant. Smoking Status: Former smoker Past Alcohol Use History: None Reported Additional Past Alcohol Use History / Comment(s): Pt quit smoking in 2007 and had been a half pack a day smoker for 30 yrs. Past Drug Use History: None Reported - Past Family History Father Family Medical History: Cancer Additional Family Medical History / Comment(s): Father had pancreatic cancer and at age 45yrs. Mother Family Medical History: Chest Pain / Angina, Diabetes Mellitus Additional Family Medical History / Comment(s): Mother is alive and 78 yrs old. Medications and Allergies Home Medications Medication Instructions Recorded Confirmed Type Chlorthalidone 50 mg PO DAILY 12/28/17 06/12/18 History Diazepam [Valium] 5 mg PO BID 12/28/17 06/12/18 History Spironolactone [Aldactone] 25 mg PO DAILY 12/28/17 06/12/18 History Folic Acid 1 mg PO DAILY 05/06/18 06/12/18 History Labetalol [Trandate] 400 mg PO BID 05/06/18 06/12/18 History Magnesium Oxide [Mag-Oxide] 400 mg PO BID 05/06/18 06/12/18 History Montelukast [Singulair] 10 mg PO DAILY 05/06/18 06/12/18 History cloNIDine HCL [Catapres] 0.3 mg PO TID 05/06/18 06/12/18 History Ondansetron HCl [Zofran] 4 mg PO DAILY PRN 05/14/18 06/12/18 History oxyCODONE-APAP 10-325MG [Percocet 1 tab PO Q6H 05/14/18 06/12/18 History 10-325 mg] Albuterol Inhaler [Ventolin Hfa 2 puff INHALATION RT-QID PRN 06/11/18 06/12/18 History Inhaler] Dexamethasone 4 mg PO DIRECTED 06/11/18 06/12/18 History Diltiazem HCl [Cartia Xt] 240 mg PO DAILY 06/11/18 06/12/18 History Dronabinol 5 mg PO BID 06/11/18 06/12/18 History Doxycycline Hyclate 100 mg PO BID 06/12/18 06/12/18 History Megestrol [Megace] 800 mg PO DAILY 06/12/18 06/12/18 History Allergies Allergy/AdvReac Type Severity Reaction Status Date / Time valsartan [From Wacaivan] Allergy Anaphylaxis Verified 06/12/18 12:27 Physical Exam Vitals: Vital Signs Temp Pulse Pulse Resp BP BP Pulse Ox 06/15/18 07:43 97.6 F 86 22 148/86 95 06/15/18 01:02 97.9 F 90 18 138/81 96 06/15/18 00:13 18 06/14/18 21:49 98 06/14/18 21:32 98.2 F 84 16 160/78 06/14/18 14:40 98.5 F 84 16 162/81 95 06/14/18 12:33 97 151/89 Intake and Output 06/14/18 06/15/18 06/15/18 22:59 06:59 14:59 Intake Total 0 Output Total 2650 1275 Balance -2650 -1275 Intake: Oral 0 Output: Urine 2650 1275 Uretheral (Rubin) 1350 Other: Voiding Method Indwelling Catheter Skin: Good color, texture, turgor. General: Medium build and comfortable at week appearance. Head: Normocephalic, atraumatic. Eyes: Symmetric. Pupils equal round. Ears: Symmetric. Hearing within normal limits. Mouth: Clear. Neck: Supple. Carotid without bruit. Cardiac: Regular rate and rhythm. Lungs: Clear anteriorly and posteriorly. Abdomen: Soft active nontender. Lightly protuberant. Extremities: Normal tone. Neurological: Mental status: Alert, cooperative, pleasant. Cranial nerves: Symmetric facial tone and trapezius. Motor: Can actively elevate all 4 limbs. Sensation: Intact throughout. DTRs: Symmetric and equal throughout. Mobility: Requires assistance for bed mobility. Results CBC & Chem 7: 06/15/18 06:38 06/15/18 06:38 Labs: Abnormal Lab Results - Last 24 Hours (Table) 06/14/18 06/14/18 06/14/18 Range/Units 01:00 07:47 13:22 WBC 0.8 L* (3.8-10.6) k/uL RBC 3.55 L (4.30-5.90) m/uL Hgb 9.4 L (13.0-17.5) gm/dL Hct 29.3 L (39.0-53.0) % RDW 18.0 H (11.5-15.5) % Plt Count 33 L (150-450) k/uL Lymphocytes # (1.0-4.8) k/uL Sodium 135 L 135 L (137-145) mmol/L Potassium 5.9 H 5.9 H (3.5-5.1) mmol/L Chloride 96 L 92 L (98-107) mmol/L Carbon Dioxide 31 H 32 H (22-30) mmol/L BUN 58 H 60 H (9-20) mg/dL Glucose 121 H 116 H (74-99) mg/dL ALT (21-72) U/L Albumin 3.4 L (3.5-5.0) g/dL 06/15/18 06/15/18 Range/Units 06:38 06:38 WBC 3.5 L (3.8-10.6) k/uL RBC 3.37 L (4.30-5.90) m/uL Hgb 8.9 L (13.0-17.5) gm/dL Hct 27.8 L (39.0-53.0) % RDW 18.4 H (11.5-15.5) % Plt Count 44 L (150-450) k/uL Lymphocytes # 0.3 L (1.0-4.8) k/uL Sodium 134 L (137-145) mmol/L Potassium 5.5 H (3.5-5.1) mmol/L Chloride 94 L (98-107) mmol/L Carbon Dioxide (22-30) mmol/L BUN 52 H (9-20) mg/dL Glucose 123 H (74-99) mg/dL ALT 18 L (21-72) U/L Albumin 3.4 L (3.5-5.0) g/dL Microbiology - Last 24 Hours (Table) 06/11/18 20:28 Blood Culture - Preliminary Blood No Growth after 72 hours Assessment and Plan (1) Chest pain Current Visit: No Status: Acute Code(s): R07.9 - CHEST PAIN, UNSPECIFIED SNOMED Code(s): 71408903 Plan: Impression: 1. Medical debility. 2. Pulmonary mesothelioma, right chest. 3. Right pneumonia with effusion. 4. Aortic dissection status post repair with stenting. 5. History of stroke. 6. Hypertension. 7. Dyslipidemia. 8. Atrial fibrillation. Comments and plan: At this time PT and speech ongoing. OT prescribed. Follow therapies with yourself. Patient has recently been an inpatient rehab and must determine that current problem is different and admission to rehab recently.
--- NOTE | 2018-06-15 09:04 | CT ---
EXAMINATION TYPE: CT chest wo con DATE OF EXAM: 06/15/2018 COMPARISON: 02/22/[address] 05/08/2018 HISTORY: 57-year-old male with right lower lobe mass, pneumonia and mesothelioma TECHNIQUE: Contiguous axial scanning of the chest without IV contrast. Coronal and sagittal reconstru ctions performed. CT DLP: DLP 493 mGycm Automated exposure control for dose reduction was used. FINDINGS: Heart upper limits of normal in size with small anterior pericardial effusion. Median sternotomy wire s are present. Coronary vessel calcifications. Redemonstrated aneurysm ascending aorta 4.2 cm and aneurysm upper descending thoracic aorta at 3.5 cm . Patient's known aortic dissection may have migrated proximally now to involve the ascending aorta, for example, refer to axial image 25. The dissection is not well characterized. Partially visualized endovascular stent graft within the abdominal aorta. Mid descending thoracic aorta measures 3.8 cm ve rsus 3.7 cm, previously. Large caliber to the main right and left pulmonary arteries measuring up to 3.1 cm suggesting underly ing pulmonary arterial hypertension. Mediastinal lymphadenopathy redemonstrated measuring up to 2.9 cm. Right axillary lymph node measures up to 1.7 cm versus 2.1 cm, previously. Extensive abnormal pleural based masses within the right hemithorax greater within the mid and lower aspect of the thorax. However, pleural-based mass anterior right upper lobe is noted measuring 2.8 cm versus 2.9 cm, previously. Mass along the medial superior mediastinum measures up to 2.0 cm thick ve rsus 2.8 cm thick, previously. Posterior right upper lobe pleural-based mass measures 8.4 x 4.6 cm ve rsus 9.1 x 6.4 cm, previously. Continued collapse, consolidation, or mass affecting the right lower lobe and right middle lobe. COPD with mild emphysema. Chronic areas of interstitial scarring on the left base. In the visualized upper abdomen, the endovascular stent graft is demonstrated along with a left renal artery stent. The gallbladder is hydropic measuring 4.5 cm wide probably due to fasting state. Bones: No osseous destructive process. Right anterior chest wall injection port with catheter tip at the lower SVC. IMPRESSION: 1. PATIENT'S KNOWN AORTIC DISSECTION IS NOT WELL ASSESSED ON THIS NONCONTRAST STUDY. FINDINGS SUGGEST THAT IT HAS MIGRATED PROXIMALLY INTO THE ASCENDING AORTA. OVERALL AORTIC CALIBER IS SIMILAR, ASCENDI NG 4.2 CM AND DESCENDING 3.7 CM. 2. KNOWN RIGHT-SIDED EXTENSIVE MESOTHELIOMA WITH MEDIASTINAL LYMPHADENOPATHY AND RIGHT AXILLARY LYMPH ADENOPATHY. SMALL RIGHT PLEURAL EFFUSION PERSISTS. OVERALL MEASUREMENTS OF THE MULTIPLE PLEURAL-BASED MASSES AND LYMPH NODES ARE STABLE. SOME MEASUREMENTS ARE SLIGHTLY SMALLER IN THE INTERVAL. 3. COPD WITH MILD EMPHYSEMA AND PULMONARY ARTERIAL HYPERTENSION. 4. HYDROPIC GALLBLADDER PROBABLY DUE TO FASTING STATE. IF RIGHT UPPER QUADRANT PAIN OR CONCERN FOR EA RLY ACUTE CHOLECYSTITIS, FOLLOW-UP ULTRASOUND OR HIDA SCAN.
[2018-06-15] MEDS: FILGRASTIM-SNDZ 480 MCG/0.8 ML SYRINGE SQ SCH (09:51)
[2018-06-15] MEDS ORDERED: SODIUM POLYSTYRENE SULFONATE 15 GM/60 ML BOTTLE PO STA (10:00)
--- NOTE | 2018-06-15 10:10 | CONS ---
CONSULTATION DATE OF SERVICE: 06/14/2018 REASON FOR CONSULTATION: Pneumonia and gluteal wound. HISTORY OF PRESENT ILLNESS: The patient is a 57-year-old male with past medical history significant for stage IV mesothelioma, presenting to the ER at [facility] on 06/11 with chief complaints of generalized weakness. Apparently his symptoms have been going on for a few days. The patient has been feeling weak, tired and no energy. The patient denies having any URI symptoms. No significant chest pain. He did have some cough with minimal sputum production. No hemoptysis. The patient denies having nausea, no vomiting. No abdominal pain or any diarrhea. With these symptoms, the patient has been evaluated by the ER physician. On arrival to the ER, the patient did have a chest x-ray which shows congestive heart failure with large right pleural effusion. Right lower lobe pneumonia is possible. The patient also had a CT of abdomen and pelvis completed on the was reported to be ascites, extensive pleural and pulmonary abnormalities both lung bases. Left lower lobe infiltrate has increased compared to old exam. Patient currently being treated with cefepime and vancomycin. I was asked to see the patient today for further recommendation regarding antibiotic therapy. Patient also noticed to be leukopenic with white count has been 1.1 to 0.8 and also wound on his bilateral gluteal area, which the patient has for a few days to weeks as the patient said he has been in and out of the hospital and mostly bedridden, but denies significant pain to the wound area. REVIEW OF SYSTEMS: CONSTITUTIONAL: Positive for weakness and chills, but no high-grade fever has been recorded. EYES: No complaint. ENT: No complaint. RESPIRATORY: As per HPI. CARDIOVASCULAR: No complaint. GENITOURINARY: No complaint. GASTROINTESTINAL: No complaint. MUSCULOSKELETAL: No complaint. INTEGUMENTARY: As per HPI. PSYCHOLOGICAL: No complaint. ENDOCRINE: No complaint. NEUROLOGIC: No complaint. PAST MEDICAL HISTORY: Atrial fibrillation, gastroesophageal reflux disease, hyperlipidemia, hypertension, mesothelioma, abdominal aortic aneurysm. PAST SURGICAL HISTORY: Heart catheterization with stent, aortic repair February 2018 and Mediport placement. SOCIAL HISTORY: The patient quit smoking back in 2007 about 1/2 pack of smoking for 30 years. No drinking or drug use. FAMILY HISTORY: Father history of pancreatic cancer at age of 45. Mother history of diabetes mellitus. ALLERGIES: Allergies to VALSARTAN. MEDICATIONS: Medications currently include the patient is on vancomycin, Protonix, Percocet, Narcan, zinc oxide, Cozaar, Trandate, folic acid, filgrastim, Cardizem, Catapres, and cefepime. PHYSICAL EXAMINATION: On examination, blood pressure is 160/78 with a pulse of 94, temperature 98.2. He is 98% on 5 L nasal cannula. General description is an middle-aged male lying in bed in no distress. No tachypnea or accessory muscle of respiration use. HEENT examination shows slight pallor. No scleral icterus. Oral mucous membrane is dry. No pharyngeal erythema or thrush. NECK: Trachea central. No thyromegaly. LUNGS: Unlabored breathing, with decreased breath sounds in the bases. No wheeze. HEART: S1, S2. Regular rate and rhythm. ABDOMEN: Soft, no tenderness. No guarding or rigidity. EXTREMITIES: No edema of the feet. SKIN EXAMINATION: No rash or mass palpable. Examination of the bilateral gluteal area: On the right side, the patient did have a stage II pressure ulcer but no slough tissue or surrounding swelling or redness or any foul smelling drainage. NEUROLOGICAL: Patient is awake, alert, oriented x3. Mood and affect normal. LABS: Hemoglobin 9.4, white count 0.8 with a BUN of 60, creatinine 1.0. Potassium is 5.9. Vancomycin trough is 27.1. Urine has been negative. Chest x-ray and abdomen and pelvis CT, reports as mentioned above. DIAGNOSTIC IMPRESSION AND PLAN: 1. Patient admitted to the hospital with difficulty in breathing in a patient who did have possibility of pneumonia with a recent diagnosis of mesothelioma and currently neutropenic anyway with the patient being in and out of the hospital and underlying immunosuppression for the resistant gram positive with gram- negative pathogen. 2. Patient with right gluteal stage II pressure wound with no evidence of any cellulitis. PLAN: 1. We will try to obtain sputum for Gram stain and culture and sensitivity to narrow down his antibiotic. 2. Vancomycin pharmacy to dose while watching his Vanco trough and kidney function very closely. 3. Cefepime 2 grams q.8. 4. Local wound care to the right gluteal wound with Aquacel silver dressing . 5. We will follow up on clinical condition and culture to further adjust medication if needed. Thank you for this consultation. Will follow this patient along with you. MMODL / IJN: [id number] /
[2018-06-15] MEDS ORDERED: ZOLPIDEM 5 MG TAB PO PRN (10:53)
--- NOTE | 2018-06-15 11:04 | P.PN ---
Subjective Progress Note Date: 06/15/18 David underwood is a 57-year-old male who presented to [facility] emergency room with a chief complaint of severe weakness patient was unable to stand and walk at home, his weakness has been worsening over the last several days, he has known history of mesothelioma and had received chemotherapy recently. Patient presented to emergency room, he was evaluated by Dr. Ingram he had evidence of right lower lobe infiltrate and right pleural effusion, he also had evidence of congestive heart failure on chest x-ray, his potassium was elevated at 6.0 his white blood count was low at 1.2 and his hemoglobin was 8.1 he was started on IV antibiotics cefepime and vancomycin and was admitted to medical floor for further evaluation. Patient was seen and examined by myself on 06/12/2018, he was alert and oriented plain comfortably in bed denies any pain however he is complaining of severe generalized weakness, he stated that he had some cough with yellow-green sputum production over the last few days, he has some shortness of breath with activity, but mostly he had generalized weakness and inability to stand or walk. Chest x-ray reviewed and revealed evidence of right lower lobe infiltrate and right pleural effusion, patient states that he follows with Dr. Domingo cryptologic technician technical as outpatient. Consultation for pulmonary and for oncology was initiated. Patient has a known history of coronary artery disease he had previous history of cardiac catheterization with stent placement, he also has known history of hypertension, history of atrial fibrillation, history of aortic dissection with previous aortic repair with aortic stent placement in February 2018/ On 06/13/2018 patient is currently resting in bed. Per nursing staff patient had issues with swelling his breakfast this morning. Chest x-ray will be ordered. Speech consult for swallow evaluation and soft mechanical chopped diet has been ordered. This time patient denies chest pain or shortness breath. Denies nausea vomiting or diarrhea. Patient denies any urinary burning or frequency. 06/14/2018 patient sitting up in bed. Requesting that he is seen by physical therapy. Reports improvement in his shortness of breath. Currently on cefepime and vancomycin for pneumonia. Chest x-ray showing a generalized increased opacity of the right hemithorax. Patient followed by oncology and pulmonary service. Patient denies any chest pain. Reports having bowel movements. Has Rubin catheter in place for urinary retention and wounds on his buttocks. 06/15/2018 patient is complaining that he is having difficulty sleeping. He is requesting Ambien. He is having hyperkalemia again potassium is 5.5. He is receiving Kayexalate. Aldactone was discontinued yesterday however he did receive a dose of Aldactone. Also placing patient on a low potassium diet. Discussed with dietitian to change his protein shakes to something that is low in potassium. Patient denies any chest pain. He is reporting improvement in shortness of breath. Denies any nausea or vomiting. Did have a bowel movement today. Has Rubin catheter in place. Eliquis discontinued by hematology for the low platelet count. Objective - Vital Signs Vital signs: Vital Signs Temp 97.6 F 06/15/18 07:43 Pulse 86 06/15/18 07:43 Resp 22 06/15/18 07:43 BP 148/86 06/15/18 07:43 Pulse Ox 95 06/15/18 07:43 Intake & Output 06/14/18 06/15/18 06/15/18 18:59 06:59 18:59 Intake Total 350 200 Output Total 1350 2575 Balance -1000 -2575 200 Weight 99.5 kg Intake: IV 100 100 Cefepime 2 gm In Sodium 100 100 Chloride 0.9% 50 ml @ 100 mls/hr IVPB Q8HR [facility] Rx# :[id number] Oral 250 100 Output: Urine 1350 2575 Uretheral (Rubin) 1350 Other: Voiding Method Indwelling Catheter Indwelling Catheter - Exam Head normocephalic Neck supple Lungs diminished bilaterally Heart regular rate and rhythm S1-S2, no rub or gallop Abdomen is soft nontender nondistended positive bowel sounds no hepatosplenomegaly Extremities no edema Neuro alert and orientated to 3 - Labs CBC & Chem 7: 06/15/18 06:38 06/15/18 06:38 Labs: Abnormal Lab Results - Last 24 Hours (Table) 06/14/18 06/14/18 06/15/18 Range/Units 01:00 13:22 06:38 WBC 3.5 L (3.8-10.6) k/uL RBC 3.37 L (4.30-5.90) m/uL Hgb 8.9 L (13.0-17.5) gm/dL Hct 27.8 L (39.0-53.0) % RDW 18.4 H (11.5-15.5) % Plt Count 44 L (150-450) k/uL Lymphocytes # 0.3 L (1.0-4.8) k/uL Sodium 135 L 135 L (137-145) mmol/L Potassium 5.9 H 5.9 H (3.5-5.1) mmol/L Chloride 96 L 92 L (98-107) mmol/L Carbon Dioxide 31 H 32 H (22-30) mmol/L BUN 58 H 60 H (9-20) mg/dL Glucose 121 H 116 H (74-99) mg/dL ALT (21-72) U/L Albumin 3.4 L (3.5-5.0) g/dL 06/15/18 Range/Units 06:38 WBC (3.8-10.6) k/uL RBC (4.30-5.90) m/uL Hgb (13.0-17.5) gm/dL Hct (39.0-53.0) % RDW (11.5-15.5) % Plt Count (150-450) k/uL Lymphocytes # (1.0-4.8) k/uL Sodium 134 L (137-145) mmol/L Potassium 5.5 H (3.5-5.1) mmol/L Chloride 94 L (98-107) mmol/L Carbon Dioxide (22-30) mmol/L BUN 52 H (9-20) mg/dL Glucose 123 H (74-99) mg/dL ALT 18 L (21-72) U/L Albumin 3.4 L (3.5-5.0) g/dL Microbiology - Last 24 Hours (Table) 06/11/18 20:28 Blood Culture - Preliminary Blood No Growth after 72 hours Assessment and Plan Assessment: #1 generalized weakness multifactorial related to hyperkalemia, pneumonia, mesothelioma with chemotherapy #2 hyperkalemia: Potassium 5.5. Give another dose of Kayexalate. Aldactone discontinued yesterday. Discussed with dietitian about a low potassium diet and changing ensure to another type of protein drink due to it containing potassium #3 mesothelioma, patient was receiving chemotherapy, will consult Dr. Montalvo for follow-up. Dr. Vasquez following per oncology, we'll hold chemotherapy while inpatient. Patient should follow-up outpatient for next cycle of chemo #4 pancytopenia due to chemotherapy: Oncology following. Started on zarxio for his neutropenia. #5 right lower lobe pneumonia with possible resisting gram-positive with gram- negative pathogen. Continue vancomycin and cefepime. Infectious disease is following. #6 moderate to large right pleural effusion likely related to metastatic mesothelioma. Followed by pulmonary service #7 generalized weakness at this time awaiting improvement in multiple medical problems, subsequently Will consult physical therapy and occupational therapy, patient may need admission to subacute rehab #8 underlying history of chronic atrial fibrillation. Eliquis on hold due to thrombocytopenia #9 underlying history of hypertension maintained on Cardizem and clonidine and losartan will monitor blood pressure control and adjust medications accordingly #10 chronic pain syndrome patient has chronic back pain and is maintained on Percocet every 6 hours will continue at this time #11 urinary retention Rubin catheter in place. #12 stage I to 2 pressure ulcerations on the buttocks present on admission. We' ll apply zinc oxide. Keep pressure off of the area. Seen by infectious disease they have added Aquacel Silver #13 history of strokes #14 history of aortic dissection #15 insomnia add Ambien DVT prophylaxis SCDs. GI prophylaxis Protonix I performed an examination of the patient and discussed their management with the physician Manager Fleet. I have reviewed the Physician Manager Fleet's notes and agree with the documented findings and plan of care
[2018-06-15] MEDS: FOLIC ACID 1 MG TAB PO SCH (12:40)
--- NOTE | 2018-06-15 14:09 | P.PN ---
Subjective Progress Note Date: 06/15/18 Principal diagnosis: Right-sided pneumonia, right large right-sided pleural effusion, metastatic mesothelioma, pancytopenia including anemia and thrombocytopenia and leukopenia , history of recent stroke and aortic dissection, generalized weakness and medical debility 06/15/2018, patient seen eval examined during the rounds clinically patient has been doing slightly better in terms of breathing is still short of breath and supplemental oxygen have intermittent dry cough patient is status post computed tomography scan of the chest which I have reviewed the hard copies as well the CAT scan was significant for large pleural-based mass on the right side which however have gotten smaller in size compared to prior CAT scan, no significant pleural effusion is seen, old dissection is noted with endovascular graft 06/14/2018, patient seen eval examined during the rounds clinically patient is slightly better well composed breathing relatively better does complaining of pain which is chronic old, on 5 L saturation is 95% and blood pressure is stable he is afebrile, and labs reviewed medications reviewed, radiographic studies reviewed as well 57-year-old well-known to me patient presented at [facility] in February for dissecting aneurysm was transferred to [facility] the aneurysm was repaired but patient had large pleural effusion and the cytology was positive for mesothelioma, patient has been under care of Dr. Schumacher undergoing chemotherapy patient is been having progressive generalized weakness in the last few days also has cough yellowish sputum production with those problem presented into the emergency department was eventually admitted into the hospital, patient has been started on broad-spectrum antibiotics and is being followed by oncology service as well right-sided pleural effusion is noted along with right-sided consolidation and I was asked to evaluate this patient further, Objective - Vital Signs Vital signs: Vital Signs Temp 97.6 F 06/15/18 07:43 Pulse 86 06/15/18 07:43 Resp 22 06/15/18 07:43 BP 169/78 06/15/18 12:39 Pulse Ox 95 06/15/18 07:43 Intake & Output 06/14/18 06/15/18 06/15/18 18:59 06:59 18:59 Intake Total 350 200 Output Total 1350 2575 Balance -1000 -2575 200 Weight 99.5 kg Intake: IV 100 100 Cefepime 2 gm In Sodium 100 100 Chloride 0.9% 50 ml @ 100 mls/hr IVPB Q8HR [facility] Rx# :[id number] Oral 250 100 Output: Urine 1350 2575 Uretheral (Rubin) 1350 Other: Voiding Method Indwelling Catheter Indwelling Catheter - Exam General: In no acute distress. Sleeping. HEENT: Mucosa moist. Neck: Neck supple. Lymph: No cervical/supraclavicular LAD. Lungs: Dullness to percussion and decrease in air entry on the right side about one third to half left clear to auscultation Heart: RRR. No LE edema. Abdomen: Soft, nontender, nondistended, with positive bowel sounds. MSK: 4/4 strength in all 4 extremities. Neuro: Sleeping, arousable and oriented however very sleepy and keeps falling asleep throughout our meeting. Skin: No jaundice or rash. Psych: Appropriate affect - Labs CBC & Chem 7: 06/15/18 06:38 06/15/18 06:38 Labs: Abnormal Lab Results - Last 24 Hours (Table) 06/14/18 06/15/18 06/15/18 Range/Units 13:22 06:38 06:38 WBC 3.5 L (3.8-10.6) k/uL RBC 3.37 L (4.30-5.90) m/uL Hgb 8.9 L (13.0-17.5) gm/dL Hct 27.8 L (39.0-53.0) % RDW 18.4 H (11.5-15.5) % Plt Count 44 L (150-450) k/uL Lymphocytes # 0.3 L (1.0-4.8) k/uL Sodium 135 L 134 L (137-145) mmol/L Potassium 5.9 H 5.5 H (3.5-5.1) mmol/L Chloride 92 L 94 L (98-107) mmol/L Carbon Dioxide 32 H (22-30) mmol/L BUN 60 H 52 H (9-20) mg/dL Glucose 116 H 123 H (74-99) mg/dL ALT 18 L (21-72) U/L Albumin 3.4 L (3.5-5.0) g/dL Microbiology - Last 24 Hours (Table) 06/11/18 20:28 Blood Culture - Preliminary Blood No Growth after 72 hours Assessment and Plan Assessment: Large pleural-based mass related to metastatic mesothelioma No significant pleural effusion noted Mediastinal lymphadenopathy Right-sided pneumonia Pancytopenia including thrombocytopenia and neutropenia and anemia postchemotherapy Chronic atrial fibrillation on Eliquis, now off of it Progressive generalized weakness multifactorial Hyperkalemia Aortic dissection status post endovascular graft Plan: Continue supportive care, Reviewed computed tomography scan of the chest, no plan for thoracentesis Broad-spectrum antibiotic to be continued Prognosis overall is guarded Further recommendations pending plan of care as per clinical response of the patient Time with Patient: Greater than 30
--- NOTE | 2018-06-15 14:42 | P.GSCN ---
History of Present Illness Consult date: 06/15/18 Reason for Consult: Known aortic dissection which possibly has migrated proximally, surgical recommendations Requesting physician: Prema Cui History of present illness: This a 57-year-old chronically ill male patient of Dr. Cui. He has multiple comorbidities including stage IV mesothelioma with current chemotherapy, coronary artery disease with history of cardiac catheterization and stent placement, atrial fibrillation on Eliquis for anticoagulation, chronic aortic dissection with aortic stent placed twice, most recently in February 2018 at [facility], CVA, hypertension, hyperlipidemia, and previous tobacco dependence. He presented to [facility] emergency room with complaints of significant weakness over the previous 5 days as well as shortness of breath. On chest x-ray he was found to have a right-sided pleural effusion and right lower lobe pneumonia. CT of the abdomen and pelvis was completed demonstrating an aorto iliac stent with a 3.7 cm aneurysm in the upper abdominal aorta as well as a large right pleural effusion. He was admitted for workup and treatment, with consults placed for oncology, pulmonology, and infectious disease. 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 There was concern however that the patient's known aortic dissection may have migrated proximally to now involving the ascending aorta with the mid descending thoracic aorta measuring 3.8 cm versus the previous 3.7 cm. Due to this finding Dr. Palomares from cardiothoracic surgery was consulted for surgical recommendations. Review of Systems Review of systems was completed and was negative except as noted. - Constitutional Reports daytime sleepiness, Reports fatigue, Reports malaise, Reports weakness - Respiratory Reports congestion, Reports cough, Reports dyspnea, Reports home oxygen Past Medical History Past Medical History: Atrial Fibrillation, Cancer, CVA/TIA, GERD/Reflux, Hyperlipidemia, Hypertension, Respiratory Disorder Additional Past Medical History / Comment(s): kidney stents, mesothelioma, triple A History of Any Multi-Drug Resistant Organisms: None Reported Past Surgical History: Heart Catheterization, Heart Catheterization With Stent Additional Past Surgical History / Comment(s): Aortic repair february 2018, port Past Anesthesia/Blood Transfusion Reactions: No Reported Reaction Additional Past Anesthesia/Blood Transfusion Reaction / Comm: Pt is unsure if he has ever received blood. Date of Last Stent Placement:: aortic stent Past Psychological History: No Psychological Hx Reported Additional Psychological History / Comment(s): resides with mother, uses walker and cane and is oxygen dependant. Smoking Status: Former smoker Past Alcohol Use History: None Reported Additional Past Alcohol Use History / Comment(s): Pt quit smoking in 2007 and had been a half pack a day smoker for 30 yrs. Past Drug Use History: None Reported - Past Family History Father Family Medical History: Cancer Additional Family Medical History / Comment(s): Father had pancreatic cancer and at age 45yrs. Mother Family Medical History: Chest Pain / Angina, Diabetes Mellitus Additional Family Medical History / Comment(s): Mother is alive and 78 yrs old. Medications and Allergies Home Medications Medication Instructions Recorded Confirmed Type Chlorthalidone 50 mg PO DAILY 12/28/17 06/12/18 History Diazepam [Valium] 5 mg PO BID 12/28/17 06/12/18 History Spironolactone [Aldactone] 25 mg PO DAILY 12/28/17 06/12/18 History Folic Acid 1 mg PO DAILY 05/06/18 06/12/18 History Labetalol [Trandate] 400 mg PO BID 05/06/18 06/12/18 History Magnesium Oxide [Mag-Oxide] 400 mg PO BID 05/06/18 06/12/18 History Montelukast [Singulair] 10 mg PO DAILY 05/06/18 06/12/18 History cloNIDine HCL [Catapres] 0.3 mg PO TID 05/06/18 06/12/18 History Ondansetron HCl [Zofran] 4 mg PO DAILY PRN 05/14/18 06/12/18 History oxyCODONE-APAP 10-325MG [Percocet 1 tab PO Q6H 05/14/18 06/12/18 History 10-325 mg] Albuterol Inhaler [Ventolin Hfa 2 puff INHALATION RT-QID PRN 06/11/18 06/12/18 History Inhaler] Dexamethasone 4 mg PO DIRECTED 06/11/18 06/12/18 History Diltiazem HCl [Cartia Xt] 240 mg PO DAILY 06/11/18 06/12/18 History Dronabinol 5 mg PO BID 06/11/18 06/12/18 History Doxycycline Hyclate 100 mg PO BID 06/12/18 06/12/18 History Megestrol [Megace] 800 mg PO DAILY 06/12/18 06/12/18 History Allergies Allergy/AdvReac Type Severity Reaction Status Date / Time valsartan [From [employer]] Allergy Anaphylaxis Verified 06/12/18 12:27 Surgical - Exam Vital Signs Temp Pulse Resp BP Pulse Ox 98.0 F 88 20 151/100 95 06/11/18 19:57 06/11/18 19:57 06/11/18 19:57 06/11/18 19:57 06/11/18 19:57 - General no distress, no pain, chronically ill - Eyes PERRL, normal ocular movement - ENT poor intermediate - Neck no masses, no bruits, trachea midline - Respiratory Lungs sounds diminished bilaterally, right greater than left. Respirations even but slightly labored. Currently on 5 L nasal cannula with oxygen saturation 95%. - Cardiovascular S1, S2 present. Irregular rate and rhythm, atrial fibrillation on telemetry. Palpable peripheral pulses bilaterally. Bilateral lower extremity edema present. No calf pain or tenderness noted - Abdomen Abdomen: soft, non tender, bowel sounds, surgical scars - Genitourinary Deferred - Rectum Deferred - Integumentary no rash, no growths - Neurologic normal coordination, normal sensation - Psychiatric oriented to time, oriented to person, oriented to place, speech is normal, memory intact Results - Labs 06/15/18 06:38 06/15/18 06:38 Abnormal Lab Results - Last 24 Hours (Table) 06/14/18 06/15/18 06/15/18 Range/Units 13:22 06:38 06:38 WBC 3.5 L (3.8-10.6) k/uL RBC 3.37 L (4.30-5.90) m/uL Hgb 8.9 L (13.0-17.5) gm/dL Hct 27.8 L (39.0-53.0) % RDW 18.4 H (11.5-15.5) % Plt Count 44 L (150-450) k/uL Lymphocytes # 0.3 L (1.0-4.8) k/uL Sodium 135 L 134 L (137-145) mmol/L Potassium 5.9 H 5.5 H (3.5-5.1) mmol/L Chloride 92 L 94 L (98-107) mmol/L Carbon Dioxide 32 H (22-30) mmol/L BUN 60 H 52 H (9-20) mg/dL Glucose 116 H 123 H (74-99) mg/dL ALT 18 L (21-72) U/L Albumin 3.4 L (3.5-5.0) g/dL Microbiology - Last 24 Hours (Table) 06/11/18 20:28 Blood Culture - Preliminary Blood No Growth after 72 hours Diabetes panel 06/14/18 06/15/18 Range/Units 13:22 06:38 Sodium 135 L 134 L (137-145) mmol/L Potassium 5.9 H 5.5 H (3.5-5.1) mmol/L Chloride 92 L 94 L (98-107) mmol/L Carbon Dioxide 32 H 30 (22-30) mmol/L BUN 60 H 52 H (9-20) mg/dL Creatinine 1.00 1.01 (0.66-1.25) mg/dL Glucose 116 H 123 H (74-99) mg/dL Calcium 9.8 9.3 (8.4-10.2) mg/dL AST 21 21 (17-59) U/L ALT 28 18 L (21-72) U/L Alkaline Phosphatase 82 78 (38-126) U/L Total Protein 7.4 6.7 (6.3-8.2) g/dL Albumin 3.8 3.4 L (3.5-5.0) g/dL Calcium panel 06/14/18 06/15/18 Range/Units 13:22 06:38 Calcium 9.8 9.3 (8.4-10.2) mg/dL Albumin 3.8 3.4 L (3.5-5.0) g/dL Pituitary panel 06/14/18 06/15/18 Range/Units 13:22 06:38 Sodium 135 L 134 L (137-145) mmol/L Potassium 5.9 H 5.5 H (3.5-5.1) mmol/L Chloride 92 L 94 L (98-107) mmol/L Carbon Dioxide 32 H 30 (22-30) mmol/L BUN 60 H 52 H (9-20) mg/dL Creatinine 1.00 1.01 (0.66-1.25) mg/dL Glucose 116 H 123 H (74-99) mg/dL Calcium 9.8 9.3 (8.4-10.2) mg/dL Adrenal panel 06/14/18 06/15/18 Range/Units 13:22 06:38 Sodium 135 L 134 L (137-145) mmol/L Potassium 5.9 H 5.5 H (3.5-5.1) mmol/L Chloride 92 L 94 L (98-107) mmol/L Carbon Dioxide 32 H 30 (22-30) mmol/L BUN 60 H 52 H (9-20) mg/dL Creatinine 1.00 1.01 (0.66-1.25) mg/dL Glucose 116 H 123 H (74-99) mg/dL Calcium 9.8 9.3 (8.4-10.2) mg/dL Total Bilirubin 0.8 0.6 (0.2-1.3) mg/dL AST 21 21 (17-59) U/L ALT 28 18 L (21-72) U/L Alkaline Phosphatase 82 78 (38-126) U/L Total Protein 7.4 6.7 (6.3-8.2) g/dL Albumin 3.8 3.4 L (3.5-5.0) g/dL - Imaging Chest x-ray: report reviewed, image reviewed CT scan - abdomen: report reviewed, image reviewed CT scan - chest: report reviewed, image reviewed Assessment and Plan (1) Mesothelioma Current Visit: Yes Status: Acute Code(s): C45.9 - MESOTHELIOMA, UNSPECIFIED SNOMED Code(s): 430279583 (2) Generalized weakness Current Visit: Yes Status: Acute Code(s): R53.1 - WEAKNESS SNOMED Code(s) : 92817205 (3) Right lower lobe pneumonia Current Visit: Yes Status: Acute Code(s): J18.1 - LOBAR PNEUMONIA, UNSPECIFIED ORGANISM SNOMED Code(s): 960786073 (4) Pleural effusion, right Current Visit: Yes Status: Acute Code(s): J90 - PLEURAL EFFUSION, NOT ELSEWHERE CLASSIFIED SNOMED Code(s): 97325749 (5) Aortic dissection, thoracoabdominal Current Visit: No Status: Acute Priority: Low Code(s): I71.03 - DISSECTION OF THORACOABDOMINAL AORTA SNOMED Code(s): 685919118 (6) Atrial fibrillation Current Visit: No Status: Acute Code(s): I48.91 - UNSPECIFIED ATRIAL FIBRILLATION SNOMED Code(s): 09181860 Plan: The patient was seen and examined at the bedside. Chart/diagnostics were reviewed. Will discuss the case in detail with Dr. Palomares. At this time the patient is a no code, he has multiple medical comorbidities including current mesothelioma with chemotherapy and atrial fibrillation on chronic anticoagulation. In addition the patient has indicated he really does not want any more surgical procedures regarding his aneurysm. No surgical intervention is warranted. Current management per primary, pulmonary, and oncology as appropriate. Thank you Dr. Cui for this consult. Please call us with any questions. Time with Patient: Greater than 30
[2018-06-15] MEDS ORDERED: DIAZEPAM 5 MG TAB PO STA (15:38)
[2018-06-15] MEDS: VANCOMYCIN 1,750 MG in SODIUM CHLORIDE 0.9% 500 ML 500 ML IVPB SCH (16:33)
--- NOTE | 2018-06-15 17:36 | P.PN ---
Subjective Progress Note Date: 06/15/18 Principal diagnosis: Mesothielioma Patient is resting comfortably in bed, grouchy remains afebrile Objective - Vital Signs Vital signs: Vital Signs Temp 98.8 F 06/15/18 15:00 Pulse 92 06/15/18 15:00 Resp 18 06/15/18 15:00 BP 165/79 06/15/18 15:00 Pulse Ox 93 L 06/15/18 15:00 Intake & Output 06/14/18 06/15/18 06/15/18 18:59 06:59 18:59 Intake Total 350 930 Output Total 1350 2575 1600 Balance -1000 -7285 -670 Weight 99.5 kg Intake: IV 100 150 Cefepime 2 gm In Sodium 100 150 Chloride 0.9% 50 ml @ 100 mls/hr IVPB Q8HR [facility] Rx# :[id number] Intake, IV Titration 500 Amount Vancomycin 1,750 mg In 500 Sodium Chloride 0.9% 500 ml 500 ml @ 167 mls/hr IVPB Q24H [facility] Rx#: [id number] Oral 250 280 Output: Urine 1350 2575 1600 Uretheral (Rubin) 1350 Other: Voiding Method Indwelling Catheter Indwelling Catheter - Exam General: In no acute distress. Sleeping. HEENT: Mucosa moist. Neck: Neck supple. Lymph: No cervical/supraclavicular LAD. Lungs: CTA-B, Heart: RRR. No LE edema. Abdomen: Soft, nontender, nondistended, with positive bowel sounds. MSK: 4/4 strength in all 4 extremities. Neuro: Sleeping, arousable, agitated. Skin: No jaundice or rash. Psych: Appropriate affect. - Labs CBC & Chem 7: 06/15/18 06:38 06/15/18 06:38 Labs: Abnormal Lab Results - Last 24 Hours (Table) 06/15/18 06/15/18 Range/Units 06:38 06:38 WBC 3.5 L (3.8-10.6) k/uL RBC 3.37 L (4.30-5.90) m/uL Hgb 8.9 L (13.0-17.5) gm/dL Hct 27.8 L (39.0-53.0) % RDW 18.4 H (11.5-15.5) % Plt Count 44 L (150-450) k/uL Lymphocytes # 0.3 L (1.0-4.8) k/uL Sodium 134 L (137-145) mmol/L Potassium 5.5 H (3.5-5.1) mmol/L Chloride 94 L (98-107) mmol/L BUN 52 H (9-20) mg/dL Glucose 123 H (74-99) mg/dL ALT 18 L (21-72) U/L Albumin 3.4 L (3.5-5.0) g/dL Microbiology - Last 24 Hours (Table) 06/11/18 20:28 Blood Culture - Preliminary Blood No Growth after 72 hours Assessment and Plan Plan: TSH, LFT's, UA unremarkable. Chest x-ray: report reviewed CT scan - abdomen: report reviewed CT Scan - head: report reviewed CT scan - pelvis: report reviewed Assessment/Plan: 1. Mesothelioma on chemotherapy: - Status Post cycle 2 of Almta single therapy 06/02/18 2. Pancytopenia, due to chemotherapy: *Neutropenia - Did not receive [place] Stimulating Factor after chemotherapy - Zarxio has been initiated inpatient - Education on neutropenia risks with ex- and patient - Monitor closely for progressive fevers *Anemia - Secondary to chemotherapy with iron deficiency component - Status Post one parental IV Faraheme in office on 06/07/18 - Monitor closely and if less than 7, transfuse PRBC *Thrombocytopenia: Stable 44 today - Secondary to chemotherapy - Platlets are less than 50K, will hold Eliquis/anticoagulation until return to 50K or greater - Transfuse if signs of bleeding or less than 10K 3. Right lower lobe pneumonia: - Per Primary Team, agree with IV abx 4. Lethargy due to infection: 5. Atrial fibrillation: - On Eliquis although platlets are less than 50K, will hold Eliquis at this time until platlets recover to greater then 50K. 6. HTN 7. HLP 8. History of CVA Patient will likely benefit from ECF at discharge.
--- NOTE | 2018-06-15 23:01 | PN ---
PROGRESS NOTE DATE OF SERVICE: 06/15/2018 REASON FOR FOLLOWUP: 1. Pneumonia. 2. Right gluteal wound. INTERVAL HISTORY: The patient is afebrile. He seems to be breathing more comfortably. Denies significant chest pain. He continues to have some cough but is not bringing up any sputum. No abdominal pain or any diarrhea. PHYSICAL EXAMINATION: Blood pressure 124/74 with a pulse of 97, temperature 97. He is 92% on 5 L nasal cannula. General description is a middle-aged male up in the bed in no distress. RESPIRATORY SYSTEM: Unlabored breathing with decreased breath sounds in the bases. No wheeze. HEART: S1, S2. Regular rate and rhythm. ABDOMEN: Soft. No tenderness. LABS: Hemoglobin 8.9, white count 3.5 with a BUN of 52, creatinine 1.01. Potassium is 5.5. Vancomycin trough is slightly elevated. Blood culture has been negative so far. Sputum has not been collected. DIAGNOSTIC IMPRESSION AND PLAN: 1. Patient admitted to hospital with difficulty in breathing and a cough with concern about pneumonia. Patient also had evidence of neutropenia. His white count has improved, though. Blood culture has been negative. We will keep the patient on the cefepime and vancomycin at this point. Try to obtain a sputum sample to narrow down his antibiotics. 2. Patient with left gluteal wound. Local wound care with Aquacel Silver dressing. Continue with supportive care. MMODL / IJN: [id number] /
[2018-06-16] MEDS: CEFEPIME 2 GM in SODIUM CHLORIDE 0.9% 50 ML IVPB SCH ×4 (00:23→23:56)
[2018-06-16] MEDS: oxyCODONE-APAP 10-325MG 1 EACH TAB PO PRN ×4 (07:42→23:56)
[2018-06-16] MEDS: LABETALOL 200 MG TAB PO SCH ×4 (07:42→23:56)
[2018-06-16] MEDS: PANTOPRAZOLE 40 MG TABLET PO SCH (07:42)
[2018-06-16] MEDS: DEXAMETHASONE 4 MG TAB PO SCH ×2 (07:44→20:15)
[2018-06-16] MEDS: LOSARTAN 25 MG TAB PO SCH ×2 (07:44→21:23)
[2018-06-16] MEDS: cloNIDine HCL 0.1 MG TAB PO SCH ×3 (07:45→21:23)
[2018-06-16] MEDS: DILTIAZEM CD 240 MG CAP.ER.24H PO SCH (07:45)
[2018-06-16] MEDS: ZINC OXIDE 20% OINT 28.4 GM TUBE TOPICAL SCH ×2 (07:53→20:09)
[2018-06-16] MEDS: FILGRASTIM-SNDZ 480 MCG/0.8 ML SYRINGE SQ SCH (09:55)
[2018-06-16 10:47] LABS: Anisocytosis Slight; HCT 29.1 % (39.0-53.0); HGB 9.1 gm/dL (13.0-17.5); Hypochromasia Slight; MCH 25.4 pg (25.0-35.0); MCHC 31.2 g/dL (31.0-37.0); MCV 81.3 fL (80.0-100.0); Mean Platelet Volume 8.9; RBC 3.58 m/uL (4.30-5.90); RDW 18.4 % (11.5-15.5)
[2018-06-16 10:52] LABS: Albumin 3.4 g/dL (3.5-5.0); Potassium 4.4 mmol/L (3.5-5.1); Total Bilirubin 0.5 mg/dL (0.2-1.3); Total Protein 6.5 g/dL (6.3-8.2)
[2018-06-16 10:53] LABS: Platelet Count 75 k/uL (150-450)
[2018-06-16 11:47] LABS: Band Neutrophils % 2 %; Lymphocytes # (M) 0.91 k/uL (1.0-4.8); Monocytes # (M) 0.78 k/uL (0-1.0); Neutrophils % (M) 85 %; Nucleated Red Blood Cells 0 /100 WBC (0-0); Total Cells Counted 100
[2018-06-16 11:49] LABS: Poikilocytosis (M) Present; Polychromasia Present
--- NOTE | 2018-06-16 12:41 | P.PN ---
Subjective Progress Note Date: 06/16/18 David underwood is a 57-year-old male who presented to [facility] emergency room with a chief complaint of severe weakness patient was unable to stand and walk at home, his weakness has been worsening over the last several days, he has known history of mesothelioma and had received chemotherapy recently. Patient presented to emergency room, he was evaluated by Dr. Ingram he had evidence of right lower lobe infiltrate and right pleural effusion, he also had evidence of congestive heart failure on chest x-ray, his potassium was elevated at 6.0 his white blood count was low at 1.2 and his hemoglobin was 8.1 he was started on IV antibiotics cefepime and vancomycin and was admitted to medical floor for further evaluation. Patient was seen and examined by myself on 06/12/2018, he was alert and oriented plain comfortably in bed denies any pain however he is complaining of severe generalized weakness, he stated that he had some cough with yellow-green sputum production over the last few days, he has some shortness of breath with activity, but mostly he had generalized weakness and inability to stand or walk. Chest x-ray reviewed and revealed evidence of right lower lobe infiltrate and right pleural effusion, patient states that he follows with Dr. Domingo chief fundraising officer as outpatient. Consultation for pulmonary and for oncology was initiated. Patient has a known history of coronary artery disease he had previous history of cardiac catheterization with stent placement, he also has known history of hypertension, history of atrial fibrillation, history of aortic dissection with previous aortic repair with aortic stent placement in February 2018/ On 06/13/2018 patient is currently resting in bed. Per nursing staff patient had issues with swelling his breakfast this morning. Chest x-ray will be ordered. Speech consult for swallow evaluation and soft mechanical chopped diet has been ordered. This time patient denies chest pain or shortness breath. Denies nausea vomiting or diarrhea. Patient denies any urinary burning or frequency. 06/14/2018 patient sitting up in bed. Requesting that he is seen by physical therapy. Reports improvement in his shortness of breath. Currently on cefepime and vancomycin for pneumonia. Chest x-ray showing a generalized increased opacity of the right hemithorax. Patient followed by oncology and pulmonary service. Patient denies any chest pain. Reports having bowel movements. Has Rubin catheter in place for urinary retention and wounds on his buttocks. 06/15/2018 patient is complaining that he is having difficulty sleeping. He is requesting Ambien. He is having hyperkalemia again potassium is 5.5. He is receiving Kayexalate. Aldactone was discontinued yesterday however he did receive a dose of Aldactone. Also placing patient on a low potassium diet. Discussed with dietitian to change his protein shakes to something that is low in potassium. Patient denies any chest pain. He is reporting improvement in shortness of breath. Denies any nausea or vomiting. Did have a bowel movement today. Has Rubin catheter in place. Eliquis discontinued by hematology for the low platelet count. On 06/16/2018 patient is currently alert and oriented eating breakfast comfortably in bed. Potassium improved to 4.4. Discussed case with Dee smith NP per the cardiothoracic services. No plans for surgery at this time. At this time patient denies chest pain or shortness breath. Patient denies nausea vomiting or diarrhea. Patient denies any urinary burning or frequency. Objective - Vital Signs Vital signs: Vital Signs Temp 98.9 F 06/16/18 07:00 Pulse 100 06/16/18 12:10 Resp 16 06/16/18 12:10 BP 105/73 06/16/18 12:10 Pulse Ox 95 06/16/18 12:10 Intake & Output 06/15/18 06/16/18 06/16/18 18:59 06:59 18:59 Intake Total 1050 240 170 Output Total 7059 968 8917 Balance -550 -510 -1030 Weight 99.5 kg 97.5 kg Intake: IV 150 50 Cefepime 2 gm In Sodium 150 50 Chloride 0.9% 50 ml @ 100 mls/hr IVPB Q8HR [facility] Rx# :[id number] Intake, IV Titration 500 Amount Vancomycin 1,750 mg In 500 Sodium Chloride 0.9% 500 ml 500 ml @ 167 mls/hr IVPB Q24H [facility] Rx#: [id number] Oral 400 240 120 Output: Urine 2222 266 7714 Other: Voiding Method Indwelling Catheter Indwelling Catheter Indwelling Catheter - Exam In general patient is alert and oriented answering questions appropriately HEENT head normocephalic and atraumatic Neck is supple no JVD no goiter no lymphadenopathy no carotid bruit Chest exam reveals a few scattered crackles bilaterally no wheezing Cardiac exam reveals regular heart sounds S1 and S2 no gallops no murmurs Abdomen is soft nontender no organomegaly with normal bowel sounds no palpable masses Extremity exam reveals 2+ edema no cyanosis or clubbing Neurological exam reveals generalized weakness without any focal deficit - Labs CBC & Chem 7: 06/16/18 09:15 06/16/18 09:15 Labs: Abnormal Lab Results - Last 24 Hours (Table) 06/16/18 06/16/18 Range/Units 09:15 09:15 WBC 13.0 H (3.8-10.6) k/uL RBC 3.58 L (4.30-5.90) m/uL Hgb 9.1 L (13.0-17.5) gm/dL Hct 29.1 L (39.0-53.0) % RDW 18.4 H (11.5-15.5) % Plt Count 75 L D (150-450) k/uL Neutrophils # (Manual) 11.30 H (1.3-7.7) k/uL Lymphocytes # (Manual) 0.91 L (1.0-4.8) k/uL Sodium 136 L (137-145) mmol/L Chloride 96 L (98-107) mmol/L BUN 49 H (9-20) mg/dL Glucose 116 H (74-99) mg/dL Albumin 3.4 L (3.5-5.0) g/dL Microbiology - Last 24 Hours (Table) 06/11/18 20:28 Blood Culture - Preliminary Blood No Growth after 96 hours Assessment and Plan Assessment: #1 generalized weakness multifactorial related to hyperkalemia, pneumonia, mesothelioma with chemotherapy #2 hyperkalemia: Potassium 5.5. Give another dose of Kayexalate. Aldactone discontinued yesterday. Discussed with dietitian about a low potassium diet and changing ensure to another type of protein drink due to it containing potassium. Potassium improving to 4.4 #3 mesothelioma, patient was receiving chemotherapy, will consult Dr. Montalvo for follow-up. Dr. Vasquez following per oncology, we'll hold chemotherapy while inpatient. Patient should follow-up outpatient for next cycle of chemo #4 pancytopenia due to chemotherapy: Oncology following. Started on zarxio for his neutropenia. #5 right lower lobe pneumonia with possible resisting gram-positive with gram- negative pathogen. Continue vancomycin and cefepime. Infectious disease is following. Per infectious disease continue with cefepime and vancomycin. Try to obtain sputum sample. #6 moderate to large right pleural effusion likely related to metastatic mesothelioma. Followed by pulmonary service #7 generalized weakness at this time awaiting improvement in multiple medical problems, subsequently Will consult physical therapy and occupational therapy, patient may need admission to subacute rehab #8 underlying history of chronic atrial fibrillation. Eliquis on hold due to thrombocytopenia #9 underlying history of hypertension maintained on Cardizem and clonidine and losartan will monitor blood pressure control and adjust medications accordingly #10 chronic pain syndrome patient has chronic back pain and is maintained on Percocet every 6 hours will continue at this time #11 urinary retention Rubin catheter in place. #12 stage I to 2 pressure ulcerations on the buttocks present on admission. We' ll apply zinc oxide. Keep pressure off of the area. Seen by infectious disease they have added Aquacel Silver #13 history of strokes #14 history of aortic dissection #15 insomnia add Ambien #16 history of aortic dissection. CT of chest completed showing showing known aortic dissection that was not well assessed on this non-contrast study. Findings suggestive it has migrated approximately the ascending aorta discussed case with Dee smith per cardiothoracic team. Patient is not a candidate for surgery at this time DVT prophylaxis SCDs. GI prophylaxis Protonix I performed an examination of the patient and discussed their management with the Nurse Practitioner. I have reviewed the Nurse Practitioner's notes and agree with the documented findings and plan of care
[2018-06-16] MEDS: FOLIC ACID 1 MG TAB PO SCH (12:42)
--- NOTE | 2018-06-16 13:11 | P.PN ---
Subjective Progress Note Date: 06/16/18 Principal diagnosis: Mesothielioma Patient is resting comfortably in bed, grouchy remains afebrile Objective - Vital Signs Vital signs: Vital Signs Temp 98.9 F 06/16/18 07:00 Pulse 100 06/16/18 12:10 Resp 16 06/16/18 12:10 BP 105/73 06/16/18 12:10 Pulse Ox 95 06/16/18 12:10 Intake & Output 06/15/18 06/16/18 06/16/18 18:59 06:59 18:59 Intake Total 1050 240 170 Output Total 0716 486 6216 Balance -550 510 -1030 Weight 99.5 kg 97.5 kg Intake: IV 150 50 Cefepime 2 gm In Sodium 150 50 Chloride 0.9% 50 ml @ 100 mls/hr IVPB Q8HR [facility]ANG Rx# :[id number] Intake, IV Titration 500 Amount Vancomycin 1,750 mg In 500 Sodium Chloride 0.9% 500 ml 500 ml @ 167 mls/hr IVPB Q24H [facility]ANG Rx#: [id number] Oral 400 240 120 Output: Urine 8941 785 1736 Other: Voiding Method Indwelling Catheter Indwelling Catheter Indwelling Catheter - Exam General: In no acute distress. Sleeping. HEENT: Mucosa moist. Neck: Neck supple. Lymph: No cervical/supraclavicular LAD. Lungs: CTA-B, Heart: RRR. No LE edema. Abdomen: Soft, nontender, nondistended, with positive bowel sounds. MSK: 4/4 strength in all 4 extremities. Neuro: Sleeping, arousable, agitated. Skin: No jaundice or rash. Psych: Appropriate affect. - Labs CBC & Chem 7: 06/16/18 09:15 06/16/18 09:15 Labs: Abnormal Lab Results - Last 24 Hours (Table) 06/16/18 06/16/18 Range/Units 09:15 09:15 WBC 13.0 H (3.8-10.6) k/uL RBC 3.58 L (4.30-5.90) m/uL Hgb 9.1 L (13.0-17.5) gm/dL Hct 29.1 L (39.0-53.0) % RDW 18.4 H (11.5-15.5) % Plt Count 75 L D (150-450) k/uL Neutrophils # (Manual) 11.30 H (1.3-7.7) k/uL Lymphocytes # (Manual) 0.91 L (1.0-4.8) k/uL Sodium 136 L (137-145) mmol/L Chloride 96 L (98-107) mmol/L BUN 49 H (9-20) mg/dL Glucose 116 H (74-99) mg/dL Albumin 3.4 L (3.5-5.0) g/dL Microbiology - Last 24 Hours (Table) 06/11/18 20:28 Blood Culture - Preliminary Blood No Growth after 96 hours Assessment and Plan Plan: TSH, LFT's, UA unremarkable. Chest x-ray: report reviewed CT scan - abdomen: report reviewed CT Scan - head: report reviewed CT scan - pelvis: report reviewed Assessment/Plan: 1. Mesothelioma on chemotherapy: - Status Post cycle 2 of Almta single therapy 06/02/18 2. Pancytopenia, due to chemotherapy: *Neutropenia - Resolved - Zarxio has beendiscontinued today as this has improved. - Education on neutropenia risks with ex- and patient - Monitor closely for progressive fevers *Anemia - Secondary to chemotherapy with iron deficiency component - Status Post one parental IV Faraheme in office on 06/07/18 - Monitor closely and if less than 7, transfuse PRBC *Thrombocytopenia: - Secondary to chemotherapy - Restarted eliquis today. 3. Right lower lobe pneumonia: - Per Primary Team, agree with IV abx 4. Lethargy due to infection: 5. Atrial fibrillation: - On Eliquis although restarted today platlets 74 6. HTN 7. HLP 8. History of CVA Patient will likely benefit from ECF at discharge.
[2018-06-16] MEDS: APIXABAN 5 MG TAB PO SCH ×2 (13:26→20:15)
--- NOTE | 2018-06-16 13:40 | P.PN ---
Subjective Progress Note Date: 06/16/18 Principal diagnosis: Right-sided pneumonia, right large right-sided pleural mass, metastatic mesothelioma, pancytopenia including anemia and thrombocytopenia and leukopenia , history of recent stroke and aortic dissection, generalized weakness and medical debility 06/16/2018, patient seen eval examined during the rounds clinically overall not much changes still has shortness of breath on activity and exertion denies any cough or sputum production, labs reviewed medications reviewed his the white cell count has improved to 13,000, rigid counts are slowly improving as well, renal functions remain stable, I reviewed the computed tomography scan finding of the patient at length no plans for thoracentesis, patient remains on 5 L oxygen saturation are in mid 90s 06/15/2018, patient seen eval examined during the rounds clinically patient has been doing slightly better in terms of breathing is still short of breath and supplemental oxygen have intermittent dry cough patient is status post computed tomography scan of the chest which I have reviewed the hard copies as well the CAT scan was significant for large pleural-based mass on the right side which however have gotten smaller in size compared to prior CAT scan, no significant pleural effusion is seen, old dissection is noted with endovascular graft 06/14/2018, patient seen eval examined during the rounds clinically patient is slightly better well composed breathing relatively better does complaining of pain which is chronic old, on 5 L saturation is 95% and blood pressure is stable he is afebrile, and labs reviewed medications reviewed, radiographic studies reviewed as well 57-year-old well-known to me patient presented at [facility] in February for dissecting aneurysm was transferred to [facility] the aneurysm was repaired but patient had large pleural effusion and the cytology was positive for mesothelioma, patient has been under care of Dr. Schumacher undergoing chemotherapy patient is been having progressive generalized weakness in the last few days also has cough yellowish sputum production with those problem presented into the emergency department was eventually admitted into the hospital, patient has been started on broad-spectrum antibiotics and is being followed by oncology service as well right-sided pleural effusion is noted along with right-sided consolidation and I was asked to evaluate this patient further, Objective - Vital Signs Vital signs: Vital Signs Temp 98.9 F 06/16/18 07:00 Pulse 100 06/16/18 12:10 Resp 16 06/16/18 12:10 BP 105/73 10/24/18 12:10 Pulse Ox 95 06/16/18 12:10 Intake & Output 06/15/18 06/16/18 06/16/18 18:59 06:59 18:59 Intake Total 1050 240 170 Output Total 2808 307 9875 Balance -024 -510 -4150 Weight 99.5 kg 97.5 kg Intake: IV 150 50 Cefepime 2 gm In Sodium 150 50 Chloride 0.9% 50 ml @ 100 mls/hr IVPB Q8HR [facility]ANG Rx# :[id number] Intake, IV Titration 500 Amount Vancomycin 1,750 mg In 500 Sodium Chloride 0.9% 500 ml 500 ml @ 167 mls/hr IVPB Q24H [facility]ANG Rx#: [id number] Oral 400 240 120 Output: Urine 5655 [id number] Other: Voiding Method Indwelling Catheter Indwelling Catheter Indwelling Catheter - Exam General: In no acute distress. Sleeping. HEENT: Mucosa moist. Neck: Neck supple. Lymph: No cervical/supraclavicular LAD. Lungs: Dullness to percussion and decrease in air entry on the right side about one third to half left clear to auscultation Heart: RRR. No LE edema. Abdomen: Soft, nontender, nondistended, with positive bowel sounds. MSK: 4/4 strength in all 4 extremities. Neuro: Sleeping, arousable and oriented however very sleepy and keeps falling asleep throughout our meeting. Skin: No jaundice or rash. Psych: Appropriate affect - Labs CBC & Chem 7: 06/16/18 09:15 06/16/18 09:15 Labs: Abnormal Lab Results - Last 24 Hours (Table) 06/16/18 06/16/18 Range/Units 09:15 09:15 WBC 13.0 H (3.8-10.6) k/uL RBC 3.58 L (4.30-5.90) m/uL Hgb 9.1 L (13.0-17.5) gm/dL Hct 29.1 L (39.0-53.0) % RDW 18.4 H (11.5-15.5) % Plt Count 75 L D (150-450) k/uL Neutrophils # (Manual) 11.30 H (1.3-7.7) k/uL Lymphocytes # (Manual) 0.91 L (1.0-4.8) k/uL Sodium 136 L (137-145) mmol/L Chloride 96 L (98-107) mmol/L BUN 49 H (9-20) mg/dL Glucose 116 H (74-99) mg/dL Albumin 3.4 L (3.5-5.0) g/dL Microbiology - Last 24 Hours (Table) 06/11/18 20:28 Blood Culture - Preliminary Blood No Growth after 96 hours Assessment and Plan Assessment: Large pleural-based mass related to metastatic mesothelioma No significant pleural effusion noted Mediastinal lymphadenopathy likely related to neoplasm Right-sided pneumonia Pancytopenia including thrombocytopenia and neutropenia and anemia postchemotherapy, slowly improving Chronic atrial fibrillation on Eliquis, now off of it for now Progressive generalized weakness multifactorial Hyperkalemia Aortic dissection status post endovascular graft Plan: Continue supportive care, Reviewed computed tomography scan of the chest, no plan for thoracentesis Broad-spectrum antibiotic to be continued Prognosis overall is guarded Further recommendations pending plan of care as per clinical response of the patient Time with Patient: Greater than 30
[2018-06-16] MEDS: DIAZEPAM 5 MG TAB PO PRN (14:25)
--- NOTE | 2018-06-16 14:30 | P.CRDCN ---
History of Present Illness History of present illness: Mr. Powell is a pleasant 57-year-old male past medical history significant for persistent atrial fibrillation, hypertension, dyslipidemia, mesothelioma and chemotherapy, abdominal aortic aneurysm s/p stent placement most recently at [facility] in February 2018 and mild coronary artery disease without significant obstruction noted on catheterization performed 2008. At that time he had a 20% proximal stenosis of the left main, 30% proximal stenosis of the LAD and no disease noted in the ramus, circumflex or RCA. He recently established with Dr. Suazo in the office. We have been asked to see him in consultation for a 9 beat run of ventricular tachycardia. Evaluation of telemetry tracings indicate he did in fact have a 9 beat run of VT. EKGs reviewed and reveal he has an persistent atrial tachycardia as well as atrial fibrillation. His rates have been well-controlled since admission. He initially presented to the hospital June 11 the symptoms of generalized weakness. CT of his brain was performed and revealed multiple lacunar infarcts mainly on the right side that appear old, small right posterior frontal cortical infarct appears old with no acute hemorrhage or intracranial abnormality. He has been seen in consultation by cardiothoracic surgery secondary to an aneurysm in the ascending aorta of 4.2 cm as well as an upper descending thoracic aortic aneurysm of 3.5 cm. He has opted for no surgical procedures regarding his aneurysm. He is currently a no code. Chest x-ray reveals right pleural effusion, pulmonary is following and there is no plans for at this time. Ongoing medical management recommended. Laboratory data reviewed, WBC 13.0, hgb 9.1, plt 75, sodium 136, potassium 4.4 down from 6.0 at peak on 06/13, creatinine 1.08. Current cardiac medications include Eliquis 5 mg twice a day, clonidine 0.3 mg 3 times a day, labetalol 200 mg 4 times a day, losartan 25 mg twice a day and Cardizem 240 mg daily. Echocardiogram obtained in the office in January 2018 reveals preserved left ventricular systolic function with ejection fraction 55% and mild MR. At the time of my exam: CONSTITUTIONAL: Denies fever. Denies chills. EYES: Denies blurred vision. Denies vision changes. Denies eye pain. EARS, NOSE, MOUTH & THROAT: Denies headache. Denies sore throat. Denies ear pain. CARDIOVASCULAR: Denies chest pain. Complains of shortness of breath. Denies orthopnea. Denies PND. Denies palpitations. RESPIRATORY: Denies cough. GASTROINTESTINAL: Denies abdominal pain. Denies diarrhea. Denies constipation. Denies nausea. Denies vomiting. MUSCULOSKELETAL: Denies myalgias. INTEGUMENTARY: Denies pruitis. Denies rash. NEUROLOGIC: Denies numbness. Denies tingling. Complains of weakness. PSYCHIATRIC: Denies anxiety. Denies depression. ENDOCRINE: Denies fatigue. Denies weight change. Denies polydipsia. Denies polyurina. GENITOURINARY: Denies burning, hematuria or urgency with micturation. HEMATOLOGIC: Denies history of anemia. Denies bleeding. Blood pressure 105/73 heart rate 100 afebrile maintaining oxygen saturation on nasal cannula GENERAL: This is a 57-year-old male in no apparent distress at the time of my examination. Generalized pallor noted. HEENT: Head is atraumatic, normocephalic. Pupils are equal, round. Sclerae anicteric. Conjunctivae are clear. Mucous membranes of the mouth are moist. Neck is supple. There is no jugular venous distention. No carotid bruit is heard. LUNGS: Right lung with hollow expiratory phase of upper one third of his back. No wheezes, rales or rhonchi. No chest wall tenderness is noted on palpation or with deep breathing. Diminished. HEART: Irregular rate and rhythm without murmurs, rubs or gallops. S1 and S2 heard. ABDOMEN: Soft, nontender. Bowel sounds are heard. No organomegaly noted. EXTREMITIES: No evidence of peripheral edema and no calf tenderness noted. VASCULAR: Radial and dorsalis pedis pulses palpated, no evidence of clubbing. NEUROLOGIC: Patient is awake, alert and oriented x3. ASSESSMENT Persistent atrial fibrillation on long-term anticoagulation with controlled ventricular response Nonsustained ventricular tachycardia Hyperkalemia Pancytopenia Hypertension Mesothelioma Right lower lobe pneumonia Right pleural effusion History of aortic dissection status post stent with recent finding suggestive of aneurysm migration. No plans for surgery at this time. PLAN TSH was checked on admission is normal. Electrolytes are normal today. Obtain 2-D echocardiogram and Doppler study to assess cardiac structure and function. Continue current medical regimen. Thank you kindly for this consultation. Nurse Practitioner note has been reviewed, I agree with a documented findings and plan of care. Patient was seen and examined. Past Medical History Past Medical History: Atrial Fibrillation, Cancer, CVA/TIA, GERD/Reflux, Hyperlipidemia, Hypertension, Respiratory Disorder Additional Past Medical History / Comment(s): kidney stents, mesothelioma, triple A History of Any Multi-Drug Resistant Organisms: None Reported Past Surgical History: Heart Catheterization, Heart Catheterization With Stent Additional Past Surgical History / Comment(s): Aortic repair february 2018, port Past Anesthesia/Blood Transfusion Reactions: No Reported Reaction Additional Past Anesthesia/Blood Transfusion Reaction / Comment(s): Pt is unsure if he has ever received blood. Date of Last Stent Placement:: aortic stent Past Psychological History: No Psychological Hx Reported Additional Psychological History / Comment(s): resides with mother, uses walker and cane and is oxygen dependant. Smoking Status: Former smoker Past Alcohol Use History: None Reported Additional Past Alcohol Use History / Comment(s): Pt quit smoking in 2007 and had been a half pack a day smoker for 30 yrs. Past Drug Use History: None Reported - Past Family History Father Family Medical History: Cancer Additional Family Medical History / Comment(s): Father had pancreatic cancer and at age 45yrs. Mother Family Medical History: Chest Pain / Angina, Diabetes Mellitus Additional Family Medical History / Comment(s): Mother is alive and 78 yrs old. Medications and Allergies Home Medications Medication Instructions Recorded Confirmed Type Chlorthalidone 50 mg PO DAILY 12/28/17 06/12/18 History Diazepam [Valium] 5 mg PO BID 12/28/17 06/12/18 History Spironolactone [Aldactone] 25 mg PO DAILY 12/28/17 06/12/18 History Folic Acid 1 mg PO DAILY 05/06/18 06/12/18 History Labetalol [Trandate] 400 mg PO BID 05/06/18 06/12/18 History Magnesium Oxide [Mag-Oxide] 400 mg PO BID 05/06/18 06/12/18 History Montelukast [Singulair] 10 mg PO DAILY 05/06/18 06/12/18 History cloNIDine HCL [Catapres] 0.3 mg PO TID 05/06/18 06/12/18 History Ondansetron HCl [Zofran] 4 mg PO DAILY PRN 05/14/18 06/12/18 History oxyCODONE-APAP 10-325MG [Percocet 1 tab PO Q6H 05/14/18 06/12/18 History 10-325 mg] Albuterol Inhaler [Ventolin Hfa 2 puff INHALATION RT-QID PRN 06/11/18 06/12/18 History Inhaler] Dexamethasone 4 mg PO DIRECTED 06/11/18 06/12/18 History Diltiazem HCl [Cartia Xt] 240 mg PO DAILY 06/11/18 06/12/18 History Dronabinol 5 mg PO BID 06/11/18 06/12/18 History Doxycycline Hyclate 100 mg PO BID 06/12/18 06/12/18 History Megestrol [Megace] 800 mg PO DAILY 06/12/18 06/12/18 History Allergies Allergy/AdvReac Type Severity Reaction Status Date / Time valsartan [From Kadriana] Allergy Anaphylaxis Verified 06/12/18 12:27 Physical Exam Vitals: Vital Signs Temp Pulse Pulse Resp BP Pulse Ox 06/16/18 12:10 100 16 105/73 95 06/16/18 07:00 98.9 F 94 12 125/85 06/15/18 23:47 98.3 F 103 H 18 110/66 95 06/15/18 19:54 97.0 F L 97 17 124/74 92 L 06/15/18 15:00 98.8 F 92 18 165/79 93 L Intake and Output 06/15/18 06/16/18 06/16/18 22:59 06:59 14:59 Intake Total 910 170 Output Total 2350 1200 Balance -1440 -1030 Intake: IV 50 50 Cefepime 2 gm In Sodium 50 50 Chloride 0.9% 50 ml @ 100 mls/hr IVPB Q8HR [facility] Rx# :[id number] Intake, IV Titration 500 Amount Vancomycin 1,750 mg In 500 Sodium Chloride 0.9% 500 ml 500 ml @ 167 mls/hr IVPB Q24H [facility] Rx#: [id number] Oral 360 120 Output: Urine 2350 1200 Other: Voiding Method Indwelling Catheter Indwelling Catheter Indwelling Catheter Weight 97.5 kg Results 06/16/18 09:15 06/16/18 09:15 Cardiac Enzymes 06/16/18 Range/Units 09:15 AST 27 (17-59) U/L CBC 06/16/18 Range/Units 09:15 WBC 13.0 H (3.8-10.6) k/uL RBC 3.58 L (4.30-5.90) m/uL Hgb 9.1 L (13.0-17.5) gm/dL Hct 29.1 L (39.0-53.0) % Plt Count 75 L D (150-450) k/uL Comprehensive Metabolic Panel 06/16/18 Range/Units 09:15 Sodium 136 L (137-145) mmol/L Potassium 4.4 (3.5-5.1) mmol/L Chloride 96 L (98-107) mmol/L Carbon Dioxide 29 (22-30) mmol/L BUN 49 H (9-20) mg/dL Creatinine 1.08 (0.66-1.25) mg/dL Glucose 116 H (74-99) mg/dL Calcium 9.0 (8.4-10.2) mg/dL AST 27 (17-59) U/L ALT 36 (21-72) U/L Alkaline Phosphatase 74 (38-126) U/L Total Protein 6.5 (6.3-8.2) g/dL Albumin 3.4 L (3.5-5.0) g/dL Current Medications Generic Name Dose Route Start Last Admin Trade Name Freq PRN Reason Stop Dose Admin Apixaban 5 mg 06/16/18 13:15 06/16/18 13:26 Eliquis PO 5 mg BID [facility] Administration Clonidine 0.3 mg 06/12/18 09:00 06/16/18 07:45 Catapres PO 0.3 mg TID [facility] Administration Dexamethasone 4 mg 06/12/18 09:00 06/16/18 07:44 Hexadrol PO 4 mg BID [facility] Administration Diazepam 5 mg 06/15/18 15:38 Valium PO BID PRN Anxiety Diltiazem HCl 240 mg 06/12/18 09:00 06/16/18 07:45 Cardizem Cd PO 240 mg DAILY [facility] Administration Folic Acid 1 mg 06/14/18 12:00 06/16/18 12:42 Folic Acid PO 1 mg DAILY@1200 [facility] Administration Cefepime HCl 2 gm/ Sodium 50 mls @ 100 mls/hr 06/12/18 16:00 06/16/18 07:41 Chloride IVPB 100 mls/hr Q8HR [facility] Administration Vancomycin HCl 1,750 mg/ 500 mls @ 167 mls/hr 06/14/18 16:00 06/15/18 16:33 Sodium Chloride IVPB 167 mls/hr Q24H [facility] Administration Labetalol HCl 200 mg 06/12/18 09:00 06/16/18 13:24 Trandate PO 200 mg QID [facility] Administration Losartan Potassium 25 mg 06/12/18 09:00 06/16/18 07:44 Cozaar PO 25 mg BID [facility] Administration Miscellaneous Information 0 each 06/16/18 15:00 Vancomycin Trough Due MISCELLANE 06/16/18 15:01 DIRECTED ONE Multi-Ingredient Ointment 1 applic 06/14/18 21:00 06/16/18 07:53 Zinc Oxide 20% Oint TOPICAL 1 applic BID [facility]ANG Administration Naloxone HCl 0.2 mg 06/11/18 23:52 Narcan IV Q2M PRN Opioid Reversal Oxycodone/Acetaminophen 1 each 06/13/18 03:20 06/16/18 12:42 Percocet 10-325 PO 1 each Q4H PRN Administration Pain Pantoprazole Sodium 40 mg 06/14/18 07:30 06/16/18 07:42 Protonix PO 40 mg AC-BRKFST [facility] Administration Zolpidem Tartrate 5 mg 06/15/18 10:53 06/16/18 02:56 Ambien PO 5 mg HS PRN Administration Insomnia Intake and Output 06/15/18 06/16/18 06/16/18 22:59 06:59 14:59 Intake Total 910 170 Output Total 2350 1200 Balance -1440 -1030 Intake: IV 50 50 Cefepime 2 gm In Sodium 50 50 Chloride 0.9% 50 ml @ 100 mls/hr IVPB Q8HR [facility] Rx# :[id number] Intake, IV Titration 500 Amount Vancomycin 1,750 mg In 500 Sodium Chloride 0.9% 500 ml 500 ml @ 167 mls/hr IVPB Q24H [facility] Rx#: [id number] Oral 360 120 Output: Urine 2350 1200 Other: Voiding Method Indwelling Catheter Indwelling Catheter Indwelling Catheter Weight 97.5 kg 06/16/18 09:15 06/16/18 09:15
[2018-06-16] MEDS ORDERED: VANCOMYCIN TROUGH DUE 1 EACH MISC MISCELLANE ONE (15:00)
[2018-06-16] MEDS: VANCOMYCIN 1,750 MG in SODIUM CHLORIDE 0.9% 500 ML 500 ML IVPB SCH (16:33)
--- NOTE | 2018-06-16 21:56 | PN ---
PROGRESS NOTE DATE OF SERVICE: 06/16/2018 REASON FOR FOLLOWUP: 1. Pneumonia. 2. Right gluteal wound. INTERVAL HISTORY: The patient is currently afebrile. He seems to be breathing more comfortably. Denies significant chest pain. Occasional cough. No abdominal pain and no pain in the right gluteal area. PHYSICAL EXAMINATION: Blood pressure 150/65 with a pulse of 100, temperature 98.1. He is 96% on 5 L nasal cannula. General description is a middle-aged male up in the chair in no distress. RESPIRATORY SYSTEM: Unlabored breathing with decreased breath sounds at the bases. No wheeze. HEART: S1, S2. Regular rate and rhythm. ABDOMEN: Soft. No tenderness. LABS: Hemoglobin 9.1, white count of 13,000 with a BUN of 49, creatinine 1.08. DIAGNOSTIC IMPRESSION AND PLAN: 1. Patient with pneumonia in a patient who did have evidence of a bilateral and some compressive atelectasis and did have neutropenia that has resolved. Currently covered with cefepime and that will be continued while watching his kidney function closely. 2. Right gluteal wound. Local wound care with Aquacel Silver dressing. Keep the area off pressure. MMODL / IJN: [id number] /
[2018-06-17 07:40] LABS: Anisocytosis Slight; HCT 28.1 % (39.0-53.0); Hypochromasia Slight; MCH 26.4 pg (25.0-35.0); MCHC 32.2 g/dL (31.0-37.0); MCV 81.8 fL (80.0-100.0); Mean Platelet Volume 9.6; RBC 3.43 m/uL (4.30-5.90); RDW 19.1 % (11.5-15.5)
[2018-06-17 07:58] LABS: Platelet Count 136 k/uL (150-450)
[2018-06-17 08:05] LABS: Albumin 3.3 g/dL (3.5-5.0); Potassium 4.5 mmol/L (3.5-5.1); Total Bilirubin 0.5 mg/dL (0.2-1.3); Total Protein 6.4 g/dL (6.3-8.2)
[2018-06-17] MEDS: APIXABAN 5 MG TAB PO SCH ×2 (08:14→20:52)
[2018-06-17] MEDS: PANTOPRAZOLE 40 MG TABLET PO SCH (08:14)
[2018-06-17] MEDS: cloNIDine HCL 0.1 MG TAB PO SCH ×3 (08:15→22:25)
[2018-06-17] MEDS: DILTIAZEM CD 240 MG CAP.ER.24H PO SCH (08:15)
[2018-06-17] MEDS: CEFEPIME 2 GM in SODIUM CHLORIDE 0.9% 50 ML IVPB SCH ×2 (08:16→18:17)
[2018-06-17] MEDS: DEXAMETHASONE 4 MG TAB PO SCH ×2 (08:16→20:52)
[2018-06-17] MEDS: LABETALOL 200 MG TAB PO SCH ×4 (08:16→22:23)
[2018-06-17] MEDS: oxyCODONE-APAP 10-325MG 1 EACH TAB PO PRN ×4 (08:25→20:51)
[2018-06-17 08:39] LABS: Band Neutrophils % 5 %; Metamyelocytes # (M) 1.14 k/uL (0); Metamyelocytes % 3 %; Monocytes # (M) 2.66 k/uL (0-1.0); Myelocytes # (M) 1.14 k/uL (0); Myelocytes % 3 %; Neutrophils % (M) 78 %; Nucleated Red Blood Cells 0 /100 WBC (0-0); Promyelocytes # (M) 0.38 k/uL (0); Promyelocytes % 1 %; Total Cells Counted 200
[2018-06-17 08:41] LABS: Toxic Granulation Present
--- NOTE | 2018-06-17 10:46 | P.PN ---
Subjective Progress Note Date: 06/17/18 David underwood is a 57-year-old male who presented to [facility] emergency room with a chief complaint of severe weakness patient was unable to stand and walk at home, his weakness has been worsening over the last several days, he has known history of mesothelioma and had received chemotherapy recently. Patient presented to emergency room, he was evaluated by Dr. Ingram he had evidence of right lower lobe infiltrate and right pleural effusion, he also had evidence of congestive heart failure on chest x-ray, his potassium was elevated at 6.0 his white blood count was low at 1.2 and his hemoglobin was 8.1 he was started on IV antibiotics cefepime and vancomycin and was admitted to medical floor for further evaluation. Patient was seen and examined by myself on 06/12/2018, he was alert and oriented plain comfortably in bed denies any pain however he is complaining of severe generalized weakness, he stated that he had some cough with yellow-green sputum production over the last few days, he has some shortness of breath with activity, but mostly he had generalized weakness and inability to stand or walk. Chest x-ray reviewed and revealed evidence of right lower lobe infiltrate and right pleural effusion, patient states that he follows with Dr. Domingo steel wool machine operator as outpatient. Consultation for pulmonary and for oncology was initiated. Patient has a known history of coronary artery disease he had previous history of cardiac catheterization with stent placement, he also has known history of hypertension, history of atrial fibrillation, history of aortic dissection with previous aortic repair with aortic stent placement in February 2018/ On 06/13/2018 patient is currently resting in bed. Per nursing staff patient had issues with swelling his breakfast this morning. Chest x-ray will be ordered. Speech consult for swallow evaluation and soft mechanical chopped diet has been ordered. This time patient denies chest pain or shortness breath. Denies nausea vomiting or diarrhea. Patient denies any urinary burning or frequency. 06/14/2018 patient sitting up in bed. Requesting that he is seen by physical therapy. Reports improvement in his shortness of breath. Currently on cefepime and vancomycin for pneumonia. Chest x-ray showing a generalized increased opacity of the right hemithorax. Patient followed by oncology and pulmonary service. Patient denies any chest pain. Reports having bowel movements. Has Rubin catheter in place for urinary retention and wounds on his buttocks. 06/15/2018 patient is complaining that he is having difficulty sleeping. He is requesting Ambien. He is having hyperkalemia again potassium is 5.5. He is receiving Kayexalate. Aldactone was discontinued yesterday however he did receive a dose of Aldactone. Also placing patient on a low potassium diet. Discussed with dietitian to change his protein shakes to something that is low in potassium. Patient denies any chest pain. He is reporting improvement in shortness of breath. Denies any nausea or vomiting. Did have a bowel movement today. Has Rubin catheter in place. Eliquis discontinued by hematology for the low platelet count. On 06/16/2018 patient is currently alert and oriented eating breakfast comfortably in bed. Potassium improved to 4.4. Discussed case with Dee smith NP per the cardiothoracic services. No plans for surgery at this time. At this time patient denies chest pain or shortness breath. Patient denies nausea vomiting or diarrhea. Patient denies any urinary burning or frequency. 06/17/2018 patient reporting that he is starting to feel better. He denies any chest pain. Reports that his shortness of breath and cough are showing some improvement. Denies any nausea or vomiting. Reports having bowel movements. Denies and urinating. Eliquis restarted yesterday per hematology.zarxio was discontinued white count was 13 yesterday and has now increased to 38. Objective - Vital Signs Vital signs: Vital Signs Temp 97.7 F 06/16/18 23:55 Pulse 98 06/16/18 23:55 Resp 18 06/16/18 23:55 BP 112/70 06/16/18 23:55 Pulse Ox 97 06/16/18 23:55 Intake & Output 06/16/18 06/17/18 06/17/18 18:59 06:59 18:59 Intake Total 720 Output Total 2500 1550 Balance -1780 -1550 Weight 100 kg Intake: IV 100 Cefepime 2 gm In Sodium 100 Chloride 0.9% 50 ml @ 100 mls/hr IVPB Q8HR [facility] Rx# :[id number] Intake, IV Titration 500 Amount Vancomycin 1,750 mg In 500 Sodium Chloride 0.9% 500 ml 500 ml @ 167 mls/hr IVPB Q24H [facility] Rx#: [id number] Oral 120 Output: Urine 2500 1550 Other: Voiding Method Indwelling Catheter Indwelling Catheter - Exam Head normocephalic Neck supple Lungs diminished bilaterally Heart regular rate and rhythm S1-S2, no rub or gallop Abdomen is soft nontender nondistended positive bowel sounds no hepatosplenomegaly Extremities no edema Neuro alert and orientated to 3 - Labs CBC & Chem 7: 06/17/18 06:26 06/17/18 06:26 Labs: Abnormal Lab Results - Last 24 Hours (Table) 06/16/18 06/16/18 06/17/18 Range/Units 09:15 09:15 06:26 WBC 13.0 H 38.0 H (3.8-10.6) k/uL RBC 3.58 L 3.43 L (4.30-5.90) m/uL Hgb 9.1 L 9.0 L (13.0-17.5) gm/dL Hct 29.1 L 28.1 L (39.0-53.0) % RDW 18.4 H 19.1 H (11.5-15.5) % Plt Count 75 L D 136 L D (150-450) k/uL Neutrophils # (Manual) 11.30 H 31.50 H (1.3-7.7) k/uL Lymphocytes # (Manual) 0.91 L (1.0-4.8) k/uL Monocytes # (Manual) 2.66 H (0-1.0) k/uL Metamyelocytes # (Man) 1.14 H (0) k/uL Myelocytes # (Manual) 1.14 H (0) k/uL Promyelocytes # (Man) 0.38 H (0) k/uL Sodium 136 L (137-145) mmol/L Chloride 96 L (98-107) mmol/L Carbon Dioxide (22-30) mmol/L BUN 49 H (9-20) mg/dL Glucose 116 H (74-99) mg/dL Albumin 3.4 L (3.5-5.0) g/dL 06/17/18 Range/Units 06:26 WBC (3.8-10.6) k/uL RBC (4.30-5.90) m/uL Hgb (13.0-17.5) gm/dL Hct (39.0-53.0) % RDW (11.5-15.5) % Plt Count (150-450) k/uL Neutrophils # (Manual) (1.3-7.7) k/uL Lymphocytes # (Manual) (1.0-4.8) k/uL Monocytes # (Manual) (0-1.0) k/uL Metamyelocytes # (Man) (0) k/uL Myelocytes # (Manual) (0) k/uL Promyelocytes # (Man) (0) k/uL Sodium 136 L (137-145) mmol/L Chloride 95 L (98-107) mmol/L Carbon Dioxide 33 H (22-30) mmol/L BUN 44 H (9-20) mg/dL Glucose 116 H (74-99) mg/dL Albumin 3.3 L (3.5-5.0) g/dL Microbiology - Last 24 Hours (Table) 06/11/18 20:28 Blood Culture - Preliminary Blood No Growth after 120 hours Assessment and Plan Assessment: #1 generalized weakness multifactorial related to hyperkalemia, pneumonia, mesothelioma with chemotherapy #2 hyperkalemia: Potassium 5.5. Give another dose of Kayexalate. Aldactone discontinued. Discussed with dietitian about a low potassium diet and changing ensure to another type of protein drink due to it containing potassium. Potassium has normalized #3 mesothelioma, patient was receiving chemotherapy, will consult Dr. Montalvo for follow-up. Dr. Vasquez following per oncology, we'll hold chemotherapy while inpatient. Patient should follow-up outpatient for next cycle of chemo #4 pancytopenia due to chemotherapy: Oncology following. zarxio discontinued yesterday neutropenia improved. White count now elevated due to the zarxio #5 right lower lobe pneumonia with possible resisting gram-positive with gram- negative pathogen. Continue vancomycin and cefepime. Infectious disease is following. #6 moderate to large right pleural effusion likely related to metastatic mesothelioma. Followed by pulmonary service #7 generalized weakness at this time awaiting improvement in multiple medical problems, subsequently Will consult physical therapy and occupational therapy, patient may need admission to subacute rehab #8 underlying history of chronic atrial fibrillation. Continue Eliquis #9 underlying history of hypertension maintained on Cardizem and clonidine and losartan will monitor blood pressure control and adjust medications accordingly #10 chronic pain syndrome patient has chronic back pain and is maintained on Percocet every 6 hours will continue at this time #11 urinary retention Rubin catheter in place. #12 stage I to 2 pressure ulcerations on the buttocks present on admission. Keep pressure off of the area. Seen by infectious disease they have added Aquacel Silver #13 history of strokes #14 history of aortic dissection CT of chest completed showing showing known aortic dissection that was not well assessed on this non-contrast study. Findings suggestive it has migrated approximately the ascending aorta discussed case with Dee smith per cardiothoracic team. Patient is not a candidate for surgery at this time #15 insomnia add Ambien #16 nonsustained ventricle tachycardia. Seen evaluated by cardiology. Echocardiogram pending Plan Anticipate discharge tomorrow. Patient is evaluated for possible inpatient rehab at [facility]. Await discharge antibiotic recommendations per infectious disease Eliquis restarted DVT prophylaxis Eliquis. GI prophylaxis Protonix I performed an examination of the patient and discussed their management with the physician Armored Machine Operator. I have reviewed the Physician Armored Machine Operator's notes and agree with the documented findings and plan of care
[2018-06-17] MEDS: LOSARTAN 25 MG TAB PO SCH ×2 (12:41→20:52)
[2018-06-17] MEDS: ZINC OXIDE 20% OINT 28.4 GM TUBE TOPICAL SCH ×2 (12:42→20:52)
--- NOTE | 2018-06-17 14:06 | PN ---
PROGRESS NOTE DATE OF SERVICE: 06/17/2018 REASON FOR FOLLOWUP: 1. Pneumonia. 2. Right gluteal wound. INTERVAL HISTORY: The patient is currently afebrile. He seemed to be breathing more comfortably. Denies significant chest pain, did have some cough, not bringing up any sputum. No nausea, no vomiting, or abdominal pain and no diarrhea. PHYSICAL EXAMINATION: Blood pressure is 112/70 with a pulse of 90, temperature 97.7, he is 97% on 5 L nasal cannula. General description is a middle aged male up in the bed, in no distress. RESPIRATORY SYSTEM: Unlabored breathing with decreased breath sounds at the bases. No wheeze. HEART: S1, S2. Regular rate and rhythm. ABDOMEN: Soft, no tenderness. EXTREMITIES: No edema of the feet. LABS: Hemoglobin is 9 with white count of 38,000, BUN of 44, creatinine is 1.07. Blood culture has been negative. DIAGNOSTIC IMPRESSION AND PLAN: 1. Patient with abnormal x-rays with concern for underlying pneumonia. The patient was in the hospital with neutropenia. Currently, white count has improved. On the up side, more likely because of drug effect. No evidence of any worsening with clinical condition. He is on cefepime and vanco that will be continued for now. Will watch his clinical course closely. However, the cultures remain to be negative. The patient has a short course of oral antibiotic therapy. 2. Right gluteal wound. Local care with Aquacel Silver dressing, keep the area off the pressure. MMODL / IJN: [id number] /
[2018-06-17] MEDS: VANCOMYCIN 1,750 MG in SODIUM CHLORIDE 0.9% 500 ML 500 ML IVPB SCH (14:44)
[2018-06-17] MEDS: FOLIC ACID 1 MG TAB PO SCH (14:55)
[2018-06-17 15:33] VITALS: BMI 29.0
--- NOTE | 2018-06-17 15:33 | P.PN ---
Subjective Progress Note Date: 06/17/18 Principal diagnosis: Mesothielioma Patient is resting comfortably in bed, was working with therapy Objective - Vital Signs Vital signs: Vital Signs Temp 97.8 F 06/17/18 15:00 Pulse 96 06/17/18 15:00 Resp 18 06/16/18 23:55 BP 121/71 06/17/18 15:00 Pulse Ox 97 06/17/18 15:00 Intake & Output 06/16/18 06/17/18 06/17/18 18:59 06:59 18:59 Intake Total 720 Output Total 2500 1550 Balance -1780 -1550 Weight 100 kg Intake: IV 100 Cefepime 2 gm In Sodium 100 Chloride 0.9% 50 ml @ 100 mls/hr IVPB Q8HR ZHANG Rx# :[id number] Intake, IV Titration 500 Amount Vancomycin 1,750 mg In 500 Sodium Chloride 0.9% 500 ml 500 ml @ 167 mls/hr IVPB Q24H ZHANG Rx#: [id number] Oral 120 Output: Urine 2500 1550 Other: Voiding Method Indwelling Catheter Indwelling Catheter - Exam General: In no acute distress. Sleeping. HEENT: Mucosa moist. Neck: Neck supple. Lymph: No cervical/supraclavicular LAD. Lungs: CTA-B, Heart: RRR. No LE edema. Abdomen: Soft, nontender, nondistended, with positive bowel sounds. MSK: 4/4 strength in all 4 extremities. Neuro: Sleeping, arousable, agitated. Skin: No jaundice or rash. Psych: Appropriate affect. - Labs CBC & Chem 7: 06/17/18 06:26 06/17/18 06:26 Labs: Abnormal Lab Results - Last 24 Hours (Table) 06/17/18 06/17/18 Range/Units 06:26 06:26 WBC 38.0 H (3.8-10.6) k/uL RBC 3.43 L (4.30-5.90) m/uL Hgb 9.0 L (13.0-17.5) gm/dL Hct 28.1 L (39.0-53.0) % RDW 19.1 H (11.5-15.5) % Plt Count 136 L D (150-450) k/uL Neutrophils # (Manual) 31.50 H (1.3-7.7) k/uL Monocytes # (Manual) 2.66 H (0-1.0) k/uL Metamyelocytes # (Man) 1.14 H (0) k/uL Myelocytes # (Manual) 1.14 H (0) k/uL Promyelocytes # (Man) 0.38 H (0) k/uL Sodium 136 L (137-145) mmol/L Chloride 95 L (98-107) mmol/L Carbon Dioxide 33 H (22-30) mmol/L BUN 44 H (9-20) mg/dL Glucose 116 H (74-99) mg/dL Albumin 3.3 L (3.5-5.0) g/dL Microbiology - Last 24 Hours (Table) 06/11/18 20:28 Blood Culture - Preliminary Blood No Growth after 120 hours Assessment and Plan Plan: TSH, LFT's, UA unremarkable. Chest x-ray: report reviewed CT scan - abdomen: report reviewed CT Scan - head: report reviewed CT scan - pelvis: report reviewed Assessment/Plan: 1. Mesothelioma on chemotherapy: - Status Post cycle 2 of Almta single therapy 06/02/18 2. Pancytopenia, due to chemotherapy: *Neutropenia - Resolved - Zarxio has beendiscontinued today as this has improved. - Education on neutropenia risks with ex- and patient - Monitor closely for progressive fevers *Anemia - Secondary to chemotherapy with iron deficiency component - Status Post one parental IV Faraheme in office on 06/07/18 - Monitor closely and if less than 7, transfuse PRBC *Thrombocytopenia: resolved - Secondary to chemotherapy - continue eliquis . 3. Right lower lobe pneumonia: - Per Primary Team, agree with IV abx 4. Lethargy due to infection: 5. Atrial fibrillation: - On Eliquis although restarted today platlets 74 dispo per primary team Patient will likely benefit from ECF at discharge.
--- NOTE | 2018-06-17 19:09 | ECHOF ---
Referral Reason:VT MEASUREMENTS -------- HEIGHT: 185.4 cm WEIGHT: 97.1 kg BP: 105/73 IVSd: 1.9 cm (0.6 - 1.1) LVIDd: 3.7 cm (3.9 - 5.3) LVPWd: 1.7 cm (0.6 - 1.1) IVSs: 2.0 cm LVIDs: 2.3 cm LVPWs: 2.1 cm LA Diam: 3.5 cm (2.7 - 3.8) RVIDd: 3.1 cm (< 3.3) LAESV Index (A-L): 25.50 ml/m Ao Diam: 3.8 cm (2.0 - 3.7) AV Cusp: 2.0 cm (1.5 - 2.6) EPSS: 0.4 cm RAP: 15.00 mmHg RVSP: 52.40 mmHg MV EF SLOPE: 120.09 mm/s (70 - 150) MV EXCURSION: 1.61 cm (> 18.000) FINDINGS -------- Atrial fibrillation. This was a technically adequate study. The left ventricular size is normal. There is severe concentric left ventricular hypertrophy. Ove rall left ventricular systolic function is normal with, an EF between 65 - 70 %. The right ventricle is normal in size. Normal LA size by volume 22+/-6 ml/m2. The right atrium is normal in size. Aortic valve is trileaflet and is mildly thickened. The mitral valve is normal. Mild tricuspid regurgitation present. There is moderate pulmonary hypertension. The right ventric ular systolic pressure, as measured by Doppler, is 52.40mmHg. The aortic root is dilated measuring 3.8cm. The inferior vena cava is dilated with no significant inspiratory collapse which is consistent estima derek right atrial pressure of >15 mmHg. There is no pericardial effusion. CONCLUSIONS -------- 1. Atrial fibrillation. 2. This was a technically adequate study. 3. The left ventricular size is normal. 4. There is severe concentric left ventricular hypertrophy. 5. Overall left ventricular systolic function is normal with, an EF between 65 - 70 %. 6. The right ventricle is normal in size. 7. Normal LA size by volume 22+/-6 ml/m2. 8. The right atrium is normal in size. 9. Aortic valve is trileaflet and is mildly thickened. 10. The mitral valve is normal. 11. Mild tricuspid regurgitation present. 12. There is moderate pulmonary hypertension. 13. The right ventricular systolic pressure, as measured by Doppler, is 52.40mmHg. 14. The aortic root is dilated measuring 3.8cm. 15. The inferior vena cava is dilated with no significant inspiratory collapse which is consistent es timated right atrial pressure of >15 mmHg. 16. There is no pericardial effusion. VEGETABLE FARM WORKER: JOAQUIN Barragan
[2018-06-17 19:56] VITALS: RESP 20
[2018-06-18] MEDS: CEFEPIME 2 GM in SODIUM CHLORIDE 0.9% 50 ML IVPB SCH ×2 (00:41→12:20)
[2018-06-18] MEDS: oxyCODONE-APAP 10-325MG 1 EACH TAB PO PRN ×4 (00:41→12:57)
[2018-06-18] MEDS: DIAZEPAM 5 MG TAB PO PRN (04:03)
[2018-06-18] MEDS: VANCOMYCIN 1,750 MG in SODIUM CHLORIDE 0.9% 500 ML 500 ML IVPB SCH (05:27)
[2018-06-18] MEDS: PANTOPRAZOLE 40 MG TABLET PO SCH (07:45)
[2018-06-18 07:50] VITALS: BP 112/65; PULSE 96; TEMP 98.1
[2018-06-18 08:23] LABS: Anisocytosis Moderate; HCT 28.2 % (39.0-53.0); HGB 8.6 gm/dL (13.0-17.5); Hypochromasia Marked; MCH 25.8 pg (25.0-35.0); MCHC 30.7 g/dL (31.0-37.0); MCV 83.9 fL (80.0-100.0); Mean Platelet Volume 7.1; Platelet Count 192 k/uL (150-450); RBC 3.35 m/uL (4.30-5.90); RDW 20.2 % (11.5-15.5)
[2018-06-18 08:31] LABS: WBC 65.9 k/uL (3.8-10.6)
[2018-06-18 08:34] LABS: ALT 29 U/L (21-72); AST 25 U/L (17-59); Albumin 3.3 g/dL (3.5-5.0); Alkaline Phosphatase 105 U/L (38-126); Anion Gap 7 mmol/L; Blood Urea Nitrogen 44 mg/dL (9-20); Calcium 8.6 mg/dL (8.4-10.2); Carbon Dioxide 32 mmol/L (22-30); Chloride 97 mmol/L (98-107); Glucose 155 mg/dL (74-99); Potassium 4.4 mmol/L (3.5-5.1); Sodium 136 mmol/L (137-145); Total Bilirubin 0.4 mg/dL (0.2-1.3); Total Protein 6.3 g/dL (6.3-8.2)
[2018-06-18] MEDS: cloNIDine HCL 0.1 MG TAB PO SCH (08:48)
[2018-06-18] MEDS: DEXAMETHASONE 4 MG TAB PO SCH (08:49)
[2018-06-18] MEDS: DILTIAZEM CD 240 MG CAP.ER.24H PO SCH (08:49)
[2018-06-18] MEDS: APIXABAN 5 MG TAB PO SCH (08:49)
[2018-06-18] MEDS: LABETALOL 200 MG TAB PO SCH ×2 (08:50→12:20)
[2018-06-18] MEDS: LOSARTAN 25 MG TAB PO SCH (08:53)
[2018-06-18 08:54] LABS: Band Neutrophils % 6 %; Metamyelocytes # (M) 1.98 k/uL (0); Metamyelocytes % 3 %; Monocytes # (M) 4.61 k/uL (0-1.0); Myelocytes # (M) 3.95 k/uL (0); Myelocytes % 6 %; Neutrophils % (M) 75 %; Nucleated Red Blood Cells 0 /100 WBC (0-0); Total Cells Counted 200
[2018-06-18] MEDS: ZINC OXIDE 20% OINT 28.4 GM TUBE TOPICAL SCH (08:54)
[2018-06-18 08:57] LABS: Poikilocytosis (M) Present
[2018-06-18] MEDS: FOLIC ACID 1 MG TAB PO SCH (12:20)
--- NOTE | 2018-06-18 12:54 | P.DS ---
Providers Date of admission: 06/11/18 23:52 Expected date of discharge: 06/18/18 Attending physician: Prema Cui Consults: 06/12/18 10:28 Consult Physician Routine Consulting Provider: Brandt Domingo Consult Reason/Comments: pneumonia, pleural effusion Do you want consulting provider notified?: Yes 06/12/18 10:29 Consult Physician Routine Consulting Provider: Dae Montalvo Consult Reason/Comments: mesothelioma Do you want consulting provider notified?: Yes 06/14/18 09:52 Consult Physician Routine Consulting Provider: Ty Melissa Consult Reason/Comments: pneumonia and buttocks wound Do you want consulting provider notified?: Yes 06/15/18 07:40 Consult Physician Routine Consulting Provider: Mike Griffin Consult Reason/Comments: eval for inpatient rehab Do you want consulting provider notified?: Yes 06/15/18 13:06 Consult Physician Routine Consulting Provider: Mik Palomares Consult Reason/Comments: Aortic dissection migrated proximally Do you want consulting provider notified?: Yes 06/15/18 15:30 Consult Physician Routine Consulting Provider: Chun Ramirez Consult Reason/Comments: 9 beat run of v-tach, hx of a'fib Do you want consulting provider notified?: Yes Primary care physician: Pre[facility] Course: Discharge diagnosis #1 generalized weakness multifactorial related to hyperkalemia, pneumonia, mesothelioma with chemotherapy #2 hyperkalemia: Potassium 5.5. Give another dose of Kayexalate. Aldactone discontinued. Discussed with dietitian about a low potassium diet and changing ensure to another type of protein drink due to it containing potassium. Potassium has normalized #3 mesothelioma, patient was receiving chemotherapy, will consult Dr. Montalvo for follow-up. Dr. Vasquez following per oncology, we'll hold chemotherapy while inpatient. Patient should follow-up outpatient for next cycle of chemo #4 pancytopenia due to chemotherapy: Oncology following. zarxio discontinued yesterday neutropenia improved. White count now elevated due to the zarxio #5 right lower lobe pneumonia with possible resisting gram-positive with gram- negative pathogen. Dr. Melissa recommending Avelox 4 mg daily for 7 days #6 moderate to large right pleural based mass related to metastatic mesothelioma. Followed by pulmonary service #7 generalized weakness at this time awaiting improvement in multiple medical problems, subsequently Will consult physical therapy and occupational therapy, patient may need admission to subacute rehab #8 underlying history of chronic atrial fibrillation. Continue Eliquis #9 underlying history of hypertension maintained on Cardizem and clonidine and losartan will monitor blood pressure control and adjust medications accordingly #10 chronic pain syndrome patient has chronic back pain and is maintained on Percocet every 6 hours will continue at this time #11 urinary retention Rubin catheter in place. #12 stage I to 2 pressure ulcerations on the buttocks present on admission. Keep pressure off of the area. Seen by infectious disease they have added Aquacel Silver #13 history of strokes #14 history of aortic dissection CT of chest completed showing showing known aortic dissection that was not well assessed on this non-contrast study. Findings suggestive it has migrated approximately the ascending aorta discussed case with Dee smith per cardiothoracic team. Patient is not a candidate for surgery at this time #15 nonsustained ventricle tachycardia. Seen evaluated by cardiology. Echocardiogram shows EF of 65-70% and moderate pulmonary hypertension Hospital course David underwood is a 57-year-old male who presented to [facility] emergency room with a chief complaint of severe weakness patient was unable to stand and walk at home, his weakness has been worsening over the last several days, he has known history of mesothelioma and had received chemotherapy recently. Patient presented to emergency room, he was evaluated by Dr. Ingram he had evidence of right lower lobe infiltrate and right pleural effusion, he also had evidence of congestive heart failure on chest x-ray, his potassium was elevated at 6.0 his white blood count was low at 1.2 and his hemoglobin was 8.1 he was started on IV antibiotics cefepime and vancomycin and was admitted to medical floor for further evaluation. Patient was seen and examined by myself on 06/12/2018, he was alert and oriented plain comfortably in bed denies any pain however he is complaining of severe generalized weakness, he stated that he had some cough with yellow-green sputum production over the last few days, he has some shortness of breath with activity, but mostly he had generalized weakness and inability to stand or walk. Chest x-ray reviewed and revealed evidence of right lower lobe infiltrate and right pleural effusion, patient states that he follows with Dr. Domingo chief radiation therapist as outpatient. Consultation for pulmonary and for oncology was initiated. Patient has a known history of coronary artery disease he had previous history of cardiac catheterization with stent placement, he also has known history of hypertension, history of atrial fibrillation, history of aortic dissection with previous aortic repair with aortic stent placement in February 2018/ On 06/13/2018 patient is currently resting in bed. Per nursing staff patient had issues with swelling his breakfast this morning. Chest x-ray will be ordered. Speech consult for swallow evaluation and soft mechanical chopped diet has been ordered. This time patient denies chest pain or shortness breath. Denies nausea vomiting or diarrhea. Patient denies any urinary burning or frequency. 06/14/2018 patient sitting up in bed. Requesting that he is seen by physical therapy. Reports improvement in his shortness of breath. Currently on cefepime and vancomycin for pneumonia. Chest x-ray showing a generalized increased opacity of the right hemithorax. Patient followed by oncology and pulmonary service. Patient denies any chest pain. Reports having bowel movements. Has Rubin catheter in place for urinary retention and wounds on his buttocks. 06/15/2018 patient is complaining that he is having difficulty sleeping. He is requesting Ambien. He is having hyperkalemia again potassium is 5.5. He is receiving Kayexalate. Aldactone was discontinued yesterday however he did receive a dose of Aldactone. Also placing patient on a low potassium diet. Discussed with dietitian to change his protein shakes to something that is low in potassium. Patient denies any chest pain. He is reporting improvement in shortness of breath. Denies any nausea or vomiting. Did have a bowel movement today. Has Rubin catheter in place. Eliquis discontinued by hematology for the low platelet count. On 06/16/2018 patient is currently alert and oriented eating breakfast comfortably in bed. Potassium improved to 4.4. Discussed case with Dee smith NP per the cardiothoracic services. No plans for surgery at this time. At this time patient denies chest pain or shortness breath. Patient denies nausea vomiting or diarrhea. Patient denies any urinary burning or frequency. 06/17/2018 patient reporting that he is starting to feel better. He denies any chest pain. Reports that his shortness of breath and cough are showing some improvement. Denies any nausea or vomiting. Reports having bowel movements. Denies and urinating. Eliquis restarted yesterday per hematology.zarxio was discontinued white count was 13 yesterday and has now increased to 38. Patient still having some weakness. He is showing improvement. Pneumonia is improving. He'll be discharged to inpatient rehab at [facility] for further rehabilitation. Patient is medical stable for discharge on 06/18/2018. He'll continue antibiotics with Avelox for 7 more days to complete treatment for his pneumonia as recommended per infectious disease. Patient's Aldactone was discontinued due to hyperkalemia during this admission. Chlorthalidone was also discontinued during this mission. Patient blood pressure was controlled with the clonidine losartan and Cardizem. Patient also had a stage I to 2 pressure ulcer on the buttocks and which infectious diseases recommending Aquasol Silver. Patient has some urinary retention and with ulcers on his buttocks continue with Rubin catheter for another couple a days. And then will have patient undergo a voiding trial. Patient currently has Rubin catheter in place for about 7 days. Patient's been cleared by consulting physicians. Please refer to chart for any further details I performed an examination of the patient and discussed their management with the physician Forge Utility Worker. I have reviewed the Physician Forge Utility Worker's notes and agree with the documented findings and plan of care Patient Condition at Discharge: Stable Plan - Discharge Summary Discharge Rx Participant: Yes New Discharge Prescriptions: New Apixaban [Eliquis] 5 mg PO BID tab Dexamethasone [Hexadrol] 4 mg PO BID tab Diazepam [Valium] 5 mg PO BID PRN #6 tab PRN Reason: Anxiety Losartan [Cozaar] 25 mg PO BID tab Moxifloxacin HCl [Avelox] 400 mg PO DAILY #7 tablet oxyCODONE-APAP 10-325MG [Percocet 10-325 mg] 1 each PO Q4H PRN #12 tab PRN Reason: Pain Continue Montelukast [Singulair] 10 mg PO DAILY Magnesium Oxide [Mag-Oxide] 400 mg PO BID Labetalol [Trandate] 400 mg PO BID Folic Acid 1 mg PO DAILY cloNIDine HCL [Catapres] 0.3 mg PO TID Ondansetron HCl [Zofran] 4 mg PO DAILY PRN PRN Reason: Nausea Dronabinol 5 mg PO BID Albuterol Inhaler [Ventolin Hfa Inhaler] 2 puff INHALATION RT-QID PRN PRN Reason: Shortness Of Breath Diltiazem HCl [Cartia Xt] 240 mg PO DAILY Megestrol [Megace] 800 mg PO DAILY Discontinued Spironolactone [Aldactone] 25 mg PO DAILY Diazepam [Valium] 5 mg PO BID Chlorthalidone 50 mg PO DAILY oxyCODONE-APAP 10-325MG [Percocet 10-325 mg] 1 tab PO Q6H Dexamethasone 4 mg PO DIRECTED Doxycycline Hyclate 100 mg PO BID Discharge Medication List Folic Acid 1 mg PO DAILY 05/06/18 [History] Labetalol [Trandate] 400 mg PO BID 05/06/18 [History] Magnesium Oxide [Mag-Oxide] 400 mg PO BID 05/06/18 [History] Montelukast [Singulair] 10 mg PO DAILY 05/06/18 [History] cloNIDine HCL [Catapres] 0.3 mg PO TID 05/06/18 [History] Ondansetron HCl [Zofran] 4 mg PO DAILY PRN 05/14/18 [History] Albuterol Inhaler [Ventolin Hfa Inhaler] 2 puff INHALATION RT-QID PRN 06/11/18 [ History] Diltiazem HCl [Cartia Xt] 240 mg PO DAILY 06/11/18 [History] Dronabinol 5 mg PO BID 06/11/18 [History] Megestrol [Megace] 800 mg PO DAILY 06/12/18 [History] Apixaban [Eliquis] 5 mg PO BID tab 06/18/18 [Rx] Dexamethasone [Hexadrol] 4 mg PO BID tab 06/18/18 [Rx] Diazepam [Valium] 5 mg PO BID PRN #6 tab 06/18/18 [Rx] Losartan [Cozaar] 25 mg PO BID tab 06/18/18 [Rx] Moxifloxacin HCl [Avelox] 400 mg PO DAILY #7 tablet 06/18/18 [Rx] oxyCODONE-APAP 10-325MG [Percocet 10-325 mg] 1 each PO Q4H PRN #12 tab 06/18/18 [Rx] Follow up Appointment(s)/Referral(s): Dae Montalvo MD [STAFF PHYSICIAN] - 06/23/18 9:30 am Prema Cui MD [Primary Care Provider] - 1 Week Activity/Diet/Wound Care/Special Instructions: Aquacel to coccyx Dysphagia 3:chopped diet, low potassium diet up with assistance/walker as tolerated discharge to [facility] Inpatient Rehab Discharge Disposition: OTHER INSTITUTION NOT DEFINED
--- NOTE | 2018-06-18 13:28 | PN ---
PROGRESS NOTE DATE OF SERVICE: 06/18/2018 REASON FOR FOLLOWUP: Pneumonia. INTERVAL HISTORY: The patient is currently afebrile. He seemed to be breathing more comfortably. Cough had decreased intensity. No chest pain. No abdominal pain or any diarrhea. PHYSICAL EXAMINATION: On examination, blood pressure 112/65, pulse of 96, temperature 98.1. He is 95% on 6 L nasal cannula. General description is a middle aged male up in the chair in no distress. RESPIRATORY SYSTEM: Unlabored breathing with decreased breath sounds. No wheeze. HEART: S1, S2. Regular rate and rhythm. ABDOMEN: Soft, no tenderness. LABS: Hemoglobin 8.6, white count 65.9 with a BUN of 44, creatinine 0.94. DIAGNOSTIC IMPRESSION AND PLAN: 1. Patient with possible component of pneumonia concern for possible gram-negative so far blood cultures negative. He was unable to provide any sputum. To finish therapy with oral Avelox 400 for about 5 to 7 days with close outpatient follow up. 2. Patient with right gluteal wound. Local care with Aquacel Silver dressing, keep the area off the pressure. MMODL / IJN: [id number] /
--- NOTE | 2018-06-18 17:07 | P.PN ---
Subjective Progress Note Date: 06/18/18 Principal diagnosis: Right-sided pneumonia, right large right-sided pleural mass, metastatic mesothelioma, pancytopenia including anemia and thrombocytopenia and leukopenia , history of recent stroke and aortic dissection, generalized weakness and medical debility 06/17/2018, patient seen eval examined during the rounds clinically patient has been doing very well awake and alert breathing comfortably he remains on supplemental oxygen cough congestion shortness breath remains stable leukocytosis has improved, ID service recommended treating patient pneumonia as Avelox no significant effusion is seen no plans for thoracentesis agree with from pulmonary standpoint for discharge will follow-up in outpatient setting 06/16/2018, patient seen eval examined during the rounds clinically overall not much changes still has shortness of breath on activity and exertion denies any cough or sputum production, labs reviewed medications reviewed his the white cell count has improved to 13,000, rigid counts are slowly improving as well, renal functions remain stable, I reviewed the computed tomography scan finding of the patient at length no plans for thoracentesis, patient remains on 5 L oxygen saturation are in mid 90s 06/15/2018, patient seen eval examined during the rounds clinically patient has been doing slightly better in terms of breathing is still short of breath and supplemental oxygen have intermittent dry cough patient is status post computed tomography scan of the chest which I have reviewed the hard copies as well the CAT scan was significant for large pleural-based mass on the right side which however have gotten smaller in size compared to prior CAT scan, no significant pleural effusion is seen, old dissection is noted with endovascular graft 06/14/2018, patient seen eval examined during the rounds clinically patient is slightly better well composed breathing relatively better does complaining of pain which is chronic old, on 5 L saturation is 95% and blood pressure is stable he is afebrile, and labs reviewed medications reviewed, radiographic studies reviewed as well 57-year-old well-known to me patient presented at [facility] in February for dissecting aneurysm was transferred to [facility] the aneurysm was repaired but patient had large pleural effusion and the cytology was positive for mesothelioma, patient has been under care of Dr. Schumacher undergoing chemotherapy patient is been having progressive generalized weakness in the last few days also has cough yellowish sputum production with those problem presented into the emergency department was eventually admitted into the hospital, patient has been started on broad-spectrum antibiotics and is being followed by oncology service as well right-sided pleural effusion is noted along with right-sided consolidation and I was asked to evaluate this patient further, Objective - Vital Signs Vital signs: Vital Signs Temp 98.1 F 06/18/18 07:48 Pulse 96 06/18/18 07:48 Resp 20 06/18/18 07:48 BP 112/65 06/18/18 07:48 Pulse Ox 95 06/18/18 07:48 Intake & Output 06/17/18 06/18/18 06/18/18 18:59 06:59 18:59 Output Total 750 1025 Balance -750 -1025 Weight 100 kg 102 kg Output: Urine 750 1025 Other: Voiding Method Indwelling Catheter Indwelling Catheter Indwelling Catheter - Exam General: In no acute distress. Sleeping. HEENT: Mucosa moist. Neck: Neck supple. Lymph: No cervical/supraclavicular LAD. Lungs: Dullness to percussion and decrease in air entry on the right side about one third to half left clear to auscultation Heart: RRR. No LE edema. Abdomen: Soft, nontender, nondistended, with positive bowel sounds. MSK: 4/4 strength in all 4 extremities. Neuro: Sleeping, arousable and oriented however very sleepy and keeps falling asleep throughout our meeting. Skin: No jaundice or rash. Psych: Appropriate affect - Labs CBC & Chem 7: 06/18/18 07:58 06/18/18 07:58 Labs: Abnormal Lab Results - Last 24 Hours (Table) 06/18/18 06/18/18 Range/Units 07:58 07:58 WBC 65.9 H* (3.8-10.6) k/uL RBC 3.35 L (4.30-5.90) m/uL Hgb 8.6 L (13.0-17.5) gm/dL Hct 28.2 L (39.0-53.0) % MCHC 30.7 L (31.0-37.0) g/dL RDW 20.2 H (11.5-15.5) % Neutrophils # (Manual) 53.30 H (1.3-7.7) k/uL Monocytes # (Manual) 4.61 H (0-1.0) k/uL Metamyelocytes # (Man) 1.98 H (0) k/uL Myelocytes # (Manual) 3.95 H (0) k/uL Sodium 136 L (137-145) mmol/L Chloride 97 L (98-107) mmol/L Carbon Dioxide 32 H (22-30) mmol/L BUN 44 H (9-20) mg/dL Glucose 155 H (74-99) mg/dL Albumin 3.3 L (3.5-5.0) g/dL Microbiology - Last 24 Hours (Table) 06/11/18 20:28 Blood Culture - Final Blood No Growth after 144 hours Assessment and Plan Assessment: Large pleural-based mass related to metastatic mesothelioma No significant pleural effusion noted Mediastinal lymphadenopathy likely related to neoplasm Right-sided pneumonia Pancytopenia including thrombocytopenia and neutropenia and anemia postchemotherapy, slowly improving Chronic atrial fibrillation on Eliquis, now off of it for now Progressive generalized weakness multifactorial Hyperkalemia Aortic dissection status post endovascular graft Plan: Continue supportive care, Reviewed computed tomography scan of the chest, no plan for thoracentesis Broad-spectrum antibiotic to be continued, can be switched to oral Prognosis overall is guarded Further recommendations pending plan of care as per clinical response of the patient Time with Patient: Greater than 30
--- NOTE | 2018-06-18 19:01 | P.PN ---
Subjective Progress Note Date: 06/18/18 Principal diagnosis: Mesothielioma Patient is resting comfortably in bed, was working with therapy still very weak , planning on discharge to [facility] today Objective - Vital Signs Vital signs: Vital Signs Temp 98.1 F 06/18/18 07:48 Pulse 96 06/18/18 07:48 Resp 20 06/18/18 07:48 BP 112/65 06/18/18 07:48 Pulse Ox 95 06/18/18 07:48 Intake & Output 06/17/18 06/18/18 06/18/18 18:59 06:59 18:59 Output Total 750 1025 Balance -750 -1025 Weight 100 kg 102 kg Output: Urine 750 1025 Other: Voiding Method Indwelling Catheter Indwelling Catheter Indwelling Catheter - Exam General: In no acute distress. Sleeping. HEENT: Mucosa moist. Neck: Neck supple. Lymph: No cervical/supraclavicular LAD. Lungs: CTA-B, Heart: RRR. No LE edema. Abdomen: Soft, nontender, nondistended, with positive bowel sounds. MSK: 4/4 strength in all 4 extremities. Neuro: Sleeping, arousable, agitated. Skin: No jaundice or rash. Psych: Appropriate affect. - Labs CBC & Chem 7: 06/18/18 07:58 06/18/18 07:58 Labs: Abnormal Lab Results - Last 24 Hours (Table) 06/18/18 06/18/18 Range/Units 07:58 07:58 WBC 65.9 H* (3.8-10.6) k/uL RBC 3.35 L (4.30-5.90) m/uL Hgb 8.6 L (13.0-17.5) gm/dL Hct 28.2 L (39.0-53.0) % MCHC 30.7 L (31.0-37.0) g/dL RDW 20.2 H (11.5-15.5) % Neutrophils # (Manual) 53.30 H (1.3-7.7) k/uL Monocytes # (Manual) 4.61 H (0-1.0) k/uL Metamyelocytes # (Man) 1.98 H (0) k/uL Myelocytes # (Manual) 3.95 H (0) k/uL Sodium 136 L (137-145) mmol/L Chloride 97 L (98-107) mmol/L Carbon Dioxide 32 H (22-30) mmol/L BUN 44 H (9-20) mg/dL Glucose 155 H (74-99) mg/dL Albumin 3.3 L (3.5-5.0) g/dL Microbiology - Last 24 Hours (Table) 06/11/18 20:28 Blood Culture - Final Blood No Growth after 144 hours Assessment and Plan Plan: TSH, LFT's, UA unremarkable. Chest x-ray: report reviewed CT scan - abdomen: report reviewed CT Scan - head: report reviewed CT scan - pelvis: report reviewed Assessment/Plan: 1. Mesothelioma on chemotherapy: - Status Post cycle 2 of [place] single therapy 06/02/18 2. Pancytopenia, due to chemotherapy: *Neutropenia - Resolved - Zarxio has beendiscontinued today as this has improved. - Education on neutropenia risks with ex- and patient - Monitor closely for progressive fevers *Anemia - Secondary to chemotherapy with iron deficiency component - Status Post one parental IV Faraheme in office on 06/07/18 - Monitor closely and if less than 7, transfuse PRBC *Thrombocytopenia: resolved - Secondary to chemotherapy - continue eliquis . 3. Right lower lobe pneumonia: - Per Primary Team, agree with IV abx 4. Lethargy due to infection: 5. Atrial fibrillation: - On Eliquis dispo per primary team Agree with discharge to [facility] today, will follow-up with Oncology once discharged from Rehab and at that time will continue on treatment regimen.
== END 2018-06-18 13:13 | DRG 177 ==
LOC: EC 19:55 → 4SSUR 23:52
PROVIDERS: ADMIT Internal Medicine; ATTEND Internal Medicine
DX: J15.6 Pneumonia due to other Gram-negative bacteria (principal); D61.810 Antineoplastic chemotherapy induced pancytopenia; I71.03 Dissection of thoracoabdominal aorta; E87.2 Acidosis; I47.1 Supraventricular tachycardia; I47.2 Ventricular tachycardia; I48.1 Persistent atrial fibrillation; R18.8 Other ascites; C78.2 Secondary malignant neoplasm of pleura; C45.7 Mesothelioma of other sites; E61.1 Iron deficiency; E78.5 Hyperlipidemia, unspecified; E87.5 Hyperkalemia; G47.00 Insomnia, unspecified; G89.4 Chronic pain syndrome; I11.0 Hypertensive heart disease with heart failure; I25.10 Atherosclerotic heart disease of native coronary artery without angina pectoris; I27.20 Pulmonary hypertension, unspecified; I48.2 Chronic atrial fibrillation; I71.2 Thoracic aortic aneurysm, without rupture; K21.9 Gastro-esophageal reflux disease without esophagitis; L89.322 Pressure ulcer of left buttock, stage 2; L89.312 Pressure ulcer of right buttock, stage 2; T45.1X5A Adverse effect of antineoplastic and immunosuppressive drugs, initial encounter; Z74.01 Bed confinement status; Z79.01 Long term (current) use of anticoagulants; Z79.82 Long term (current) use of aspirin; Z79.891 Long term (current) use of opiate analgesic; Z80.0 Family history of malignant neoplasm of digestive organs; Z83.3 Family history of diabetes mellitus; Z86.73 Personal history of transient ischemic attack (TIA), and cerebral infarction without residual deficits; Z87.891 Personal history of nicotine dependence; Z95.5 Presence of coronary angioplasty implant and graft; Z99.81 Dependence on supplemental oxygen; Z79.899 Other long term (current) drug therapy; R33.9 Retention of urine, unspecified
CPT/HCPCS: 36415; 51701; 70450; 71046; 71250; 74177; 80053; 80202; 81001; 82550; 82553; 83605; 83735; 84443; 84484; 84550; 85025; 85610; 85730; 87040; 93005; 93306; 96361; 96365; 96375; 99285